=== PATIENT | male | born 1950 | race Caucasian/White ===

== ENCOUNTER 2017-08-22 17:05 | Inpatient (IN) | payer MEDICARE ==
--- NOTE | 2017-08-22 17:35 | ED Physician Chart ---
ED Chief Complaint/HPI - Patient Information Date Seen:: 08/22/17 Time Seen:: 17:12 Chief Complaint:: psychosis History of Present Illness:: THIS IS A 67 YO MALE WHO WAS SENT FROM THE [facility] FOR EVALUATION AND TREATMENT OF HIS MENTAL STATUS. HE HAS A HISTORY OF SCHIZOPHRENIA. Allergies:: Allergies Allergy/AdvReac Type Severity Reaction Status Date / Time No Known Allergies Allergy Verified 08/22/17 17:09 Vitals:: Vital Signs - 8 hr 08/22/17 17:09 Temp 97.6 F HR 72 RR 16 BP 122/72 O2 Sat % 95 Historian:: Medical Records Review:: Nurse's Note Reviewed, Old Chart Reviewed, Transfer documents Reviewed ED Review of Systems - Review of Systems General/Constitutional: No fever, No chills, No weight loss, No weakness, No diaphoresis, No edema, No loss of appetite, Other ( THIS PATIENT IS UNABLE TO GIVE A REVIEW OF SYSTEMS.) Skin: No skin lesions, No rash, No bruising Head: No headache, No light-headedness Eyes: No loss of vision, No pain, No diplopia ENT: No earache, No nasal drainage, No sore throat, No tinnitus Neck: No neck pain, No swelling, No thyromegaly, No stiffness, No mass noted Cardio Vascular: No chest pain, No palpitations, No PND, No orthopnea, No edema Pulmonary: No SOB, No cough, No sputum, No wheezing GI: No nausea, No vomiting, No diarrhea, No pain, No melena, No hematochezia, No constipation, No hematemesis G/U: No dysuria, No frequency, No hematuria Musculoskeletal: No bone or joint pain, No back pain, No muscle pain Endocrine: No polyuria, No polydipsia Psychiatric: No prior psych history, No depression, No anxiety, No suicidal ideation Hematopoietic: No bruising, No lymphadenopathy Allergic/Immuno: No urticaria, No angioedema Neurological: No syncope, No focal symptoms, No weakness, No paresthesia, No headache, No seizure, No dizziness, No confusion, No vertigo ED Past Medical History - Past Medical History Obtainable: Yes Past Medical History: CVA/TIA, Dementia, Other (SEVERE CERVICAL SPINAL STENOSIS. ) Family History: None Social History: Non Smoker, No Alcohol, No Drug Use, Care Facility Surgical History: other (NECK SURGERY) Family Medical History - Family Member Mother History Unknown: Yes ED Physical Exam - Physical Examination General/Constitutional: Awake, Well-developed, well-nourished, Alert, No distress, GCS 15, Non-toxic appearing, Ambulatory Other Gen/Cons comments:: LETHARGIC AND SLOW RESPONSES Head: Atraumatic Eyes: Lids, conjuctiva normal, PERRL, EOMI Skin: Nl inspection, No rash, No skin lesions, No ecchymosis, Well hydrated, No lymphadenopathy ENMT: External ears, nose nl, Nasal exam nl, Lips, teeth, gums nl Neck: Nontender, Full ROM w/o pain, No JVD, No nuchal rigidity, No bruit, No mass, No stridor Respiratory: Nl effort/Exclusion, Clear to Auscultation, No Wheeze/Rhonchi/Rales Cardio Vascular: RRR, No murmur, gallop, rubs, NL S1 S2 GI: No tenderness/rebounding/guarding, No organomegaly, No hernia, Normal BS's, Nondistended, No mass/bruits, No McBurney tenderness : No CVA tenderness Extremities: No tenderness or effusion, Full ROM, normal strength in all extremities, No edema, Normal digits & nails Neuro/Psych: Alert/oriented, DTR's symmetric, Normal sensory exam, Normal motor strength, No focal deficits (THINKING PROBLEM) Misc: normal gait, Normal back, No paraspinal tenderness ED Labs/Radiology/EKG Results - Lab Results Results: Abnormal Lab Results 08/22/17 08/22/17 08/22/17 18:10 18:10 18:10 WBC 8.1 RBC 4.51 Hgb 11.4 L Hct 34.7 L MCV 76.9 L MCH 25.2 L MCHC Differential 32.8 RDW 14.3 Plt Count 417 H MPV 7.8 Neutrophils % 61.9 Lymphocytes % 28.1 Monocytes % 6.1 Eosinophils % 3.4 Basophils % 0.5 Sodium 138 Potassium 3.6 Chloride 106 Carbon Dioxide 26.9 Anion Gap 8.7 BUN 14 Creatinine 0.7 Est GFR ( Amer) > 60.0 Est GFR (Non-Af Amer) > 60.0 BUN/Creatinine Ratio 20.0 Glucose 103 Calcium 9.3 Total Bilirubin 0.3 AST 14 ALT 12 Alkaline Phosphatase 65 Troponin I Total Protein 6.7 Albumin 3.6 L Globulin 3.1 Albumin/Globulin Ratio 1.2 Triglycerides 84 Cholesterol 123 LDL Cholesterol Direct 70 L HDL Cholesterol 40 08/22/17 18:10 WBC RBC Hgb Hct MCV MCH MCHC Differential RDW Plt Count MPV Neutrophils % Lymphocytes % Monocytes % Eosinophils % Basophils % Sodium Potassium Chloride Carbon Dioxide Anion Gap BUN Creatinine Est GFR ( Amer) Est GFR (Non-Af Amer) BUN/Creatinine Ratio Glucose Calcium Total Bilirubin AST ALT Alkaline Phosphatase Troponin I 0.01 Total Protein Albumin Globulin Albumin/Globulin Ratio Triglycerides Cholesterol LDL Cholesterol Direct HDL Cholesterol - Radiology Results Results: chest x-ray = nad - EKG Interpretations EKG Time:: 17:36 Rate & Rhythm: RATE= 73, SINUS [place]: RIGHT AXIS ED Assessment - Assessment General Assessment: PSYCHOSIS ED Septic Shock - . Is Septic Shock (SBP<90, OR Lactate>4 mmol\L) present?: No - <6hrs of presentation: Vital Signs: Vital Signs - 8 hr 08/22/17 17:09 Temp 97.6 F HR 72 RR 16 BP 122/72 O2 Sat % 95 ED Reassessment (Disposition) - Reassessment Reassessment Condition:: Unchanged - Diagnosis Diagnosis:: PSYCHOSIS - Patient Disposition Discharge/Transfer:: Acute Care w/in this hosp Admitting Medical Physician:: David Painter Admitting Psych Physician:: Judith Brooks Condition at Disposition:: Unchanged ED Discharge Plan - Patient Disposition Admit/Discharge/Transfer: Acute Care w/in this hosp Condition at Disposition: Unchanged Instructions: Psychosis
[2017-08-22 18:19] LABS: % BASOPHILS 0.5 % (0.0-2.0); % EOSINOPHILS 3.4 % (0.0-5.0); % LYMPHOCYTES 28.1 % (20.0-50.0); % MONOCYTES 6.1 % (2.0-10.0); % NEUTROPHILS 61.9 % (40.0-80.0); HEMATOCRIT 34.7 % (41.0-60); HEMOGLOBIN 11.4 gm/dL (12-16); MEAN CELL VOLUME 76.9 fl (80-99); MEAN CORPUSCULAR HEMOGLOBIN 25.2 pg (27.0-31.0); MEAN CORPUSCULAR HGB CONC 32.8 pg (28.0-36.0); MEAN PLATELET VOLUME 7.8 fl; PLATELET COUNT 417 Th/cmm (150-400); RED BLOOD COUNT 4.51 Mil/cmm (3.80-5.80); RED CELL DISTRIBUTION WIDTH 14.3 % (11.5-20.0); WHITE BLOOD COUNT 8.1 Th/cmm (4.8-10.8)
[2017-08-22 18:39] LABS: CHOLESTEROL 123 mg/dL (<200); TRIGLYCERIDES 84 mg/dL (<150)
[2017-08-22 18:41] LABS: ALB/GLOB RATIO 1.2 (1.0-1.8); ALKALINE PHOSPHATASE 65 U/L (34-104); ANION GAP 8.7 (7.0-16.0); BILIRUBIN,TOTAL 0.3 mg/dL (0.3-1.0); BUN - UREA NITROGEN 14 mg/dL (7-25); CALCIUM SERUM 9.3 mg/dL (8.6-10.3); CARBON DIOXIDE 26.9 mEq/L (21.0-31.0); CHLORIDE 106 mEq/L (98-107); CREATININE - SERUM 0.7 mg/dL (0.7-1.3); GLUCOSE 103 mg/dL (70-105); POTASSIUM SERUM 3.6 mEq/L (3.5-5.1); SGOT 14 U/L (13-39); SGPT/ALT 12 U/L (7-52); SODIUM SERUM 138 mEq/L (136-145)
[2017-08-22 19:04] LABS: INR 1.01 (0.5-1.4); PROTHROMBIN TIME (TEST) 10.5 SECONDS (9.5-11.5)
[2017-08-22 20:04] VITALS: BP 124/69
[2017-08-22] MEDS ORDERED: Magnesium Hydroxide (MOM) 30 mL UDC PO PRN (20:06)
[2017-08-23] MEDS: Multivitamin Tab PO SCH (08:56)
[2017-08-23] MEDS: Lactulose 10 Gm/15 mL 30mL UDC PO SCH ×2 (08:56→17:19)
--- NOTE | 2017-08-23 09:07 | Diagnostic Imaging Report ---
CHEST X-RAY: AP view INDICATION: Cough COMPARISON: None FINDINGS: There is no focal consolidation or pleural effusions The heart is normal in size. Postsurgical changes of the cervical and upper thoracic spine are noted. Gas-filled loops of bowel and stomach are seen along left hemiabdomen. Degenerative changes of the spine and shoulders are noted. IMPRESSION: No focal consolidation identified.
[2017-08-23] MEDS: Venlafaxine HCl ER 37.5 mg Tab PO SCH (11:19)
--- NOTE | 2017-08-23 23:42 | Psychosocial Evaluation ---
DATE OF SERVICE: 08/23/2017 IDENTIFYING DATA: The patient is a 67-year-old male, resident of ____ [facility]. Information obtained by directly interviewing the patient as well as reviewing the admission papers. JUSTIFICATION FOR HOSPITALIZATION: The patient is admitted here because of his aggressive behavior and agitation. Staff was spoken to. Chart is reviewed. The patient is interviewed. During the evaluation, the patient has been out of control and has been trying the ej chair. The patient also has to be given a dose of Ativan to calm him down. Review of the chart indicated that the patient has been on the Depakote Effexor and trazodone prior to being in here. The patient is reported to have been getting increasingly agitated and hence patient has to be brought over here for stabilization. Review of the chart indicated that the patient has been diagnosed to have fusion of the cervical spine, spondylosis and gastroesophageal reflux disease. PAST PSYCHIATRIC HISTORY: Details are not known. MEDICAL HISTORY AND PHYSICAL EXAMINATION: Requested to be done by Dr. Painter. SUBSTANCE ABUSE HISTORY: None. PHYSICAL OR SEXUAL ABUSE HISTORY: None. MENTAL STATUS EXAMINATION: The patient is a 67-year-old, looking his stated age, superficially cooperative. Eye contact is poor. Mood is noted to be irritable. Affect is constricted. Insight and judgment at this time are noted to be still impaired. Impulse control seems to be limited. Coping skills are also to be limited. The patient has been having acute mood swings and has been having difficult time to cope with the stress. The patient is very paranoid at this time. The patient has problem with short-term as well as long-term memory. Attention span and concentration at this time are noted to be poor. DIAGNOSTIC IMPRESSION: 1. Psychosis, not otherwise specified. Rule out schizoaffective disorder. 2. Dementia and behavioral change secondary. IMMEDIATE TREATMENT PLAN: The patient is going to be observed on the inpatient unit and will be continued with the current medications and encouraged to participate in the groups and verbalize the concerns. Once stabilized, the patient is going to be discharged to [facility] to be followed up on an outpatient basis. [facility]# [id number]
[2017-08-24] MEDS: Lactulose 10 Gm/15 mL 30mL UDC PO SCH ×3 (08:38→16:57)
[2017-08-24] MEDS: Multivitamin Tab PO SCH ×2 (08:38→09:16)
[2017-08-24] MEDS: Venlafaxine HCl ER 37.5 mg Tab PO SCH ×2 (08:40→09:16)
--- NOTE | 2017-08-24 20:08 | General Progress Note ---
Subjective - Review of Systems Service Date: 08/24/17 Objective - Results Result Diagrams: 08/22/17 18:10 08/22/17 18:10 Recent Labs: Laboratory Last Values WBC 8.1 Th/cmm (4.8-10.8) 08/22/17 18:10 RBC 4.51 Mil/cmm (3.80-5.80) 08/22/17 18:10 Hgb 11.4 gm/dL (12-16) L 08/22/17 18:10 Hct 34.7 % (41.0-60) L 08/22/17 18:10 MCV 76.9 fl (80-99) L 08/22/17 18:10 MCH 25.2 pg (27.0-31.0) L 08/22/17 18:10 MCHC Differential 32.8 pg (28.0-36.0) 08/22/17 18:10 RDW 14.3 % (11.5-20.0) 08/22/17 18:10 Plt Count 417 Th/cmm (150-400) H 08/22/17 18:10 MPV 7.8 fl 08/22/17 18:10 Neutrophils % 61.9 % (40.0-80.0) 08/22/17 18:10 Lymphocytes % 28.1 % (20.0-50.0) 08/22/17 18:10 Monocytes % 6.1 % (2.0-10.0) 08/22/17 18:10 Eosinophils % 3.4 % (0.0-5.0) 08/22/17 18:10 Basophils % 0.5 % (0.0-2.0) 08/22/17 18:10 PT 10.5 SECONDS (9.5-11.5) 08/22/17 18:10 INR 1.01 (0.5-1.4) 08/22/17 18:10 PTT (Actin FS) 25.4 SECONDS (26.0-38.0) L 08/22/17 18:10 Sodium 138 mEq/L (136-145) 08/22/17 18:10 Potassium 3.6 mEq/L (3.5-5.1) 08/22/17 18:10 Chloride 106 mEq/L (98-107) 08/22/17 18:10 Carbon Dioxide 26.9 mEq/L (21.0-31.0) 08/22/17 18:10 Anion Gap 8.7 (7.0-16.0) 08/22/17 18:10 BUN 14 mg/dL (7-25) 08/22/17 18:10 Creatinine 0.7 mg/dL (0.7-1.3) 08/22/17 18:10 Est GFR ( Amer) > 60.0 ml/min (>90) 08/22/17 18:10 Est GFR (Non-Af Amer) > 60.0 ml/min 08/22/17 18:10 BUN/Creatinine Ratio 20.0 08/22/17 18:10 Glucose 103 mg/dL (70-105) 08/22/17 18:10 Calcium 9.3 mg/dL (8.6-10.3) 08/22/17 18:10 Total Bilirubin 0.3 mg/dL (0.3-1.0) 08/22/17 18:10 AST 14 U/L (13-39) 08/22/17 18:10 ALT 12 U/L (7-52) 08/22/17 18:10 Alkaline Phosphatase 65 U/L (34-104) 08/22/17 18:10 Troponin I 0.01 ng/mL (0.01-0.05) 08/22/17 18:10 Total Protein 6.7 gm/dL (6.0-8.3) 08/22/17 18:10 Albumin 3.6 gm/dL (4.2-5.5) L 08/22/17 18:10 Globulin 3.1 gm/dL 08/22/17 18:10 Albumin/Globulin Ratio 1.2 (1.0-1.8) 08/22/17 18:10 Triglycerides 84 mg/dL (<150) 08/22/17 18:10 Cholesterol 123 mg/dL (<200) 08/22/17 18:10 LDL Cholesterol Direct 70 mg/dL (75-193) L 08/22/17 18:10 HDL Cholesterol 40 mg/dL (23-92) 08/22/17 18:10 TSH 0.77 uIU/ml (0.34-5.60) 08/22/17 18:10 RPR NONREACTIVE (NONREACTIVE) 08/22/17 18:10 - Physical Exam Vitals and I&O: Vital Signs Temp 97.4 F 08/24/17 14:00 Pulse 74 08/24/17 14:00 Resp 18 08/24/17 14:00 BP 95/55 08/24/17 14:00 Pulse Ox 98 08/24/17 14:00 Intake & Output 08/24/17 08/24/17 08/25/17 06:59 18:59 06:59 Intake Total 1800 Balance 1800 Intake: Oral 1800 Other: # Voids 3 4 # Bowel Movements 0 0 Active Medications: Current Medications Acetaminophen (Tylenol) 650 mg PO Q4HR PRN PRN Reason: Mild Pain / Temp above 100 Stop: 10/21/17 20:05 Last Admin: 08/23/17 17:28 Dose: 650 mg Ascorbic Acid (Vitamin C) 500 mg PO DAILY [facility] Stop: 10/22/17 08:59 Last Admin: 08/24/17 09:16 Dose: Not Given Baclofen (Lioresal) 10 mg PO TID [facility] Stop: 10/23/17 13:59 Last Admin: 08/24/17 13:13 Dose: Not Given Divalproex Sodium (Depakote Sprinkle) 125 mg PO Q12HR [facility] PRN Reason: Protocol Stop: 10/22/17 08:59 Last Admin: 08/24/17 09:16 Dose: Not Given Gabapentin (Neurontin) 400 mg PO QID [facility] Stop: 10/22/17 08:59 Last Admin: 08/24/17 16:57 Dose: Not Given Lactulose (Cephulac) 20 gm PO BID [facility] Stop: 10/22/17 08:59 Last Admin: 08/24/17 16:57 Dose: Not Given Lorazepam (Ativan) 0.5 mg PO Q4HR PRN; Protocol PRN Reason: Agitation Stop: 10/22/17 07:50 Last Admin: 08/24/17 17:10 Dose: 0.5 mg Magnesium Hydroxide (Milk Of Magnesia) 30 ml PO HS PRN PRN Reason: Constipation Multivitamins/Vitamin C (Theragran) 1 tab PO DAILY [facility] Stop: 10/22/17 08:59 Last Admin: 08/24/17 09:16 Dose: Not Given Mupirocin (Bactroban Oint) 1 appl NS BID [facility] Stop: 08/29/17 09:01 Last Admin: 08/24/17 16:58 Dose: Not Given Quetiapine Fumarate (Seroquel) 12.5 mg PO HS [facility] PRN Reason: Protocol Stop: 10/23/17 20:59 Senna (Senna) 8.6 mg PO BID [facility] Stop: 10/22/17 08:59 Last Admin: 08/24/17 16:58 Dose: Not Given Trazodone HCl (Desyrel) 50 mg PO HS [facility] PRN Reason: Protocol Stop: 10/22/17 20:59 Last Admin: 08/23/17 20:11 Dose: 50 mg Venlafaxine HCl (Effexor Xr) 37.5 mg PO DAILY [facility] PRN Reason: Protocol Stop: 10/22/17 08:59 Last Admin: 08/24/17 09:16 Dose: Not Given Zinc Sulfate (Zinc Sulfate) 220 mg PO DAILY [facility] Stop: 10/22/17 08:59 Last Admin: 08/24/17 09:16 Dose: Not Given Zolpidem Tartrate (Ambien) 5 mg PO HS PRN PRN Reason: Insomnia Stop: 10/21/17 20:05
--- NOTE | 2017-08-24 20:46 | History & Physical ---
ADMIT DATE: 08/22/2017 HISTORY OF PRESENT ILLNESS: The patient is a 67-year-old male patient, who [facility] because of change in mental condition, agitation, and schizophrenia. He was admitted. I was asked to see the patient on the medical side. The patient known to have history of CVA, history of TIA, history of dementia, and the patient otherwise systems review was negative. PAST MEDICAL HISTORY: As enumerated above. SURGICAL HISTORY: Unremarkable. PHYSICAL EXAMINATION: GENERAL: Elderly male patient, slightly confused. HEAD: Normal. ENT: Normal. NECK: Supple, nontender. LUNGS: Clear. CARDIOVASCULAR SYSTEM: S1, S2 heard. ABDOMEN: Soft. Bowel sounds are heard. CENTRAL NERVOUS SYSTEM: Grossly normal. LABORATORY DATA: White count was 8.1, hemoglobin 11.4, hematocrit was normal. Electrolytes were normal. BUN and creatinine was normal. EKG was normal sinus rhythm, he has right axis deviation, and otherwise normal. DIAGNOSES: Acute psychosis, history of cerebrovascular accident, history of transient ischemic attack, and history of dementia was made. PLAN: The patient is being admitted. I will follow medically along with Dr. Brooks. JOB# [id number]
--- NOTE | 2017-08-25 00:25 | Progress Notes ---
DATE: 08/24/2017 SUBJECTIVE: Staff was spoken to. The patient is interviewed. Mood is noted to be irritable. Affect is constricted. Insight and judgment at this time are noted to be still impaired. Impulse control is noted to be poor. Continues to be very irritable and angry. The patient has been having difficult time to cope with the stress. The patient is very angry and upset and insisting on having his way. The patient also has been having problem with sleep at night time. ASSESSMENT: The patient is still paranoid and demented. PLAN: To continue the patient with supportive therapy. I encouraged the patient to verbalize the concerns rather than to act out. In view of the paranoia and agitation, the patient is going to be placed on 12.5 mg of Seroquel at night time and followed up with supportive therapy. JOB# [id number]
[2017-08-25] MEDS: Lactulose 10 Gm/15 mL 30mL UDC PO SCH ×2 (09:50→16:56)
[2017-08-25] MEDS: Multivitamin Tab PO SCH (09:50)
[2017-08-25] MEDS: Venlafaxine HCl ER 37.5 mg Tab PO SCH (09:50)
--- NOTE | 2017-08-25 21:54 | Progress Notes ---
DATE: 08/25/2017 Staff was spoken to. The patient is interviewed. Mood is irritable. Affect is still impaired. Impulse control seems to be poor. Coping skills are also noted to be poor. The patient has been having difficult time to cope with the stress. The patient is still very paranoid. The patient is currently only on 12.5 mg of the Seroquel, which is going to be gradually increased to 25 mg and the patient is going to be followed up with supportive therapy. The patient is not ready to be discharged to a lower level of care in view of his acute agitation and psychosis. JOB# [id number]
--- NOTE | 2017-08-26 09:31 | General Progress Note ---
Subjective - Review of Systems Events since last encounter: patient with not much change irritable , depressed, withdrawn no pain Objective - Results Result Diagrams: 08/22/17 18:10 08/22/17 18:10 Recent Labs: Laboratory Last Values WBC 8.1 Th/cmm (4.8-10.8) 08/22/17 18:10 RBC 4.51 Mil/cmm (3.80-5.80) 08/22/17 18:10 Hgb 11.4 gm/dL (12-16) L 08/22/17 18:10 Hct 34.7 % (41.0-60) L 08/22/17 18:10 MCV 76.9 fl (80-99) L 08/22/17 18:10 MCH 25.2 pg (27.0-31.0) L 08/22/17 18:10 MCHC Differential 32.8 pg (28.0-36.0) 08/22/17 18:10 RDW 14.3 % (11.5-20.0) 08/22/17 18:10 Plt Count 417 Th/cmm (150-400) H 08/22/17 18:10 MPV 7.8 fl 08/22/17 18:10 Neutrophils % 61.9 % (40.0-80.0) 08/22/17 18:10 Lymphocytes % 28.1 % (20.0-50.0) 08/22/17 18:10 Monocytes % 6.1 % (2.0-10.0) 08/22/17 18:10 Eosinophils % 3.4 % (0.0-5.0) 08/22/17 18:10 Basophils % 0.5 % (0.0-2.0) 08/22/17 18:10 PT 10.5 SECONDS (9.5-11.5) 08/22/17 18:10 INR 1.01 (0.5-1.4) 08/22/17 18:10 PTT (Actin FS) 25.4 SECONDS (26.0-38.0) L 08/22/17 18:10 Sodium 138 mEq/L (136-145) 08/22/17 18:10 Potassium 3.6 mEq/L (3.5-5.1) 08/22/17 18:10 Chloride 106 mEq/L (98-107) 08/22/17 18:10 Carbon Dioxide 26.9 mEq/L (21.0-31.0) 08/22/17 18:10 Anion Gap 8.7 (7.0-16.0) 08/22/17 18:10 BUN 14 mg/dL (7-25) 08/22/17 18:10 Creatinine 0.7 mg/dL (0.7-1.3) 08/22/17 18:10 Est GFR ( Amer) > 60.0 ml/min (>90) 08/22/17 18:10 Est GFR (Non-Af Amer) > 60.0 ml/min 08/22/17 18:10 BUN/Creatinine Ratio 20.0 08/22/17 18:10 Glucose 103 mg/dL (70-105) 08/22/17 18:10 Calcium 9.3 mg/dL (8.6-10.3) 08/22/17 18:10 Total Bilirubin 0.3 mg/dL (0.3-1.0) 08/22/17 18:10 AST 14 U/L (13-39) 08/22/17 18:10 ALT 12 U/L (7-52) 08/22/17 18:10 Alkaline Phosphatase 65 U/L (34-104) 08/22/17 18:10 Troponin I 0.01 ng/mL (0.01-0.05) 08/22/17 18:10 Total Protein 6.7 gm/dL (6.0-8.3) 08/22/17 18:10 Albumin 3.6 gm/dL (4.2-5.5) L 08/22/17 18:10 Globulin 3.1 gm/dL 08/22/17 18:10 Albumin/Globulin Ratio 1.2 (1.0-1.8) 08/22/17 18:10 Triglycerides 84 mg/dL (<150) 08/22/17 18:10 Cholesterol 123 mg/dL (<200) 08/22/17 18:10 LDL Cholesterol Direct 70 mg/dL (75-193) L 08/22/17 18:10 HDL Cholesterol 40 mg/dL (23-92) 08/22/17 18:10 TSH 0.77 uIU/ml (0.34-5.60) 08/22/17 18:10 RPR NONREACTIVE (NONREACTIVE) 08/22/17 18:10 - Physical Exam Vitals and I&O: Vital Signs Temp 97.8 F 08/26/17 06:16 Pulse 79 08/26/17 06:16 Resp 18 08/26/17 06:16 BP 118/66 08/26/17 06:16 Pulse Ox 96 08/26/17 06:16 Intake & Output 08/25/17 08/26/17 08/26/17 18:59 06:59 18:59 Intake Total 720 360 Balance 720 360 Intake: Oral 720 360 Other: # Voids 4 2 # Bowel Movements 0 1 Active Medications: Current Medications Acetaminophen (Tylenol) 650 mg PO Q4HR PRN PRN Reason: Mild Pain / Temp above 100 Stop: 10/21/17 20:05 Last Admin: 08/26/17 01:40 Dose: 650 mg Ascorbic Acid (Vitamin C) 500 mg PO DAILY [facility] Stop: 10/22/17 08:59 Last Admin: 08/25/17 09:50 Dose: Not Given Baclofen (Lioresal) 10 mg PO TID [facility] Stop: 10/23/17 13:59 Last Admin: 08/25/17 21:16 Dose: Not Given Divalproex Sodium (Depakote Sprinkle) 125 mg PO Q12HR [facility] PRN Reason: Protocol Stop: 10/22/17 08:59 Last Admin: 08/25/17 21:17 Dose: Not Given Gabapentin (Neurontin) 400 mg PO QID [facility] Stop: 10/22/17 08:59 Last Admin: 08/25/17 21:17 Dose: Not Given Lactulose (Cephulac) 20 gm PO BID [facility] Stop: 10/22/17 08:59 Last Admin: 08/25/17 16:56 Dose: Not Given Lorazepam (Ativan) 0.5 mg PO Q4HR PRN; Protocol PRN Reason: Agitation Stop: 10/22/17 07:50 Last Admin: 08/26/17 01:40 Dose: 0.5 mg Magnesium Hydroxide (Milk Of Magnesia) 30 ml PO HS PRN PRN Reason: Constipation Multivitamins/Vitamin C (Theragran) 1 tab PO DAILY [facility] Stop: 10/22/17 08:59 Last Admin: 08/25/17 09:50 Dose: Not Given Mupirocin (Bactroban Oint) 1 appl NS BID [facility] Stop: 08/29/17 09:01 Last Admin: 08/25/17 16:56 Dose: Not Given Quetiapine Fumarate (Seroquel) 25 mg PO HS [facility] PRN Reason: Protocol Stop: 10/23/17 20:59 Last Admin: 08/25/17 21:17 Dose: Not Given Senna (Senna) 8.6 mg PO BID [facility] Stop: 10/22/17 08:59 Last Admin: 08/25/17 16:56 Dose: Not Given Trazodone HCl (Desyrel) 50 mg PO HS [facility] PRN Reason: Protocol Stop: 10/22/17 20:59 Last Admin: 08/25/17 21:16 Dose: Not Given Venlafaxine HCl (Effexor Xr) 37.5 mg PO DAILY [facility] PRN Reason: Protocol Stop: 10/22/17 08:59 Last Admin: 08/25/17 09:50 Dose: Not Given Zinc Sulfate (Zinc Sulfate) 220 mg PO DAILY [facility] Stop: 10/22/17 08:59 Last Admin: 08/25/17 09:50 Dose: Not Given Zolpidem Tartrate (Ambien) 5 mg PO HS PRN PRN Reason: Insomnia Stop: 10/21/17 20:05
[2017-08-26] MEDS: Venlafaxine HCl ER 37.5 mg Tab PO SCH (10:03)
[2017-08-26] MEDS: Multivitamin Tab PO SCH (10:03)
[2017-08-26] MEDS: Lactulose 10 Gm/15 mL 30mL UDC PO SCH ×2 (10:03→16:47)
--- NOTE | 2017-08-27 04:16 | Progress Notes ---
DATE: 08/26/2017 SUBJECTIVE: Staff was spoken to. The patient is interviewed. Mood is noted to be irritable. Affect is constricted. Insight and judgment are noted to be very much impaired. Impulse control seems to be poor. Coping skills are also noted to be poor. The patient is self-abusive and has been hitting himself on the face. The patient needs to be redirected. Coping skills at this time are noted to be very poor. The patient is not able to contract for safety. ASSESSMENT: The patient is still psychotic and impulsive, self-abusive. PLAN: To increase the dose on the Depakote and then follow the patient with supportive therapy. Please note the patient is not ready to be discharged to a lower level of care yet. JOB# [id number]
[2017-08-27] MEDS: Multivitamin Tab PO SCH (09:03)
[2017-08-27] MEDS: Lactulose 10 Gm/15 mL 30mL UDC PO SCH ×2 (09:03→16:06)
--- NOTE | 2017-08-27 09:30 | General Progress Note ---
Subjective - Review of Systems Events since last encounter: remains psychotic ,unpredictable Objective - Results Result Diagrams: 08/22/17 18:10 08/22/17 18:10 Recent Labs: Laboratory Last Values WBC 8.1 Th/cmm (4.8-10.8) 08/22/17 18:10 RBC 4.51 Mil/cmm (3.80-5.80) 08/22/17 18:10 Hgb 11.4 gm/dL (12-16) L 08/22/17 18:10 Hct 34.7 % (41.0-60) L 08/22/17 18:10 MCV 76.9 fl (80-99) L 08/22/17 18:10 MCH 25.2 pg (27.0-31.0) L 08/22/17 18:10 MCHC Differential 32.8 pg (28.0-36.0) 08/22/17 18:10 RDW 14.3 % (11.5-20.0) 08/22/17 18:10 Plt Count 417 Th/cmm (150-400) H 08/22/17 18:10 MPV 7.8 fl 08/22/17 18:10 Neutrophils % 61.9 % (40.0-80.0) 08/22/17 18:10 Lymphocytes % 28.1 % (20.0-50.0) 08/22/17 18:10 Monocytes % 6.1 % (2.0-10.0) 08/22/17 18:10 Eosinophils % 3.4 % (0.0-5.0) 08/22/17 18:10 Basophils % 0.5 % (0.0-2.0) 08/22/17 18:10 PT 10.5 SECONDS (9.5-11.5) 08/22/17 18:10 INR 1.01 (0.5-1.4) 08/22/17 18:10 PTT (Actin FS) 25.4 SECONDS (26.0-38.0) L 08/22/17 18:10 Sodium 138 mEq/L (136-145) 08/22/17 18:10 Potassium 3.6 mEq/L (3.5-5.1) 08/22/17 18:10 Chloride 106 mEq/L (98-107) 08/22/17 18:10 Carbon Dioxide 26.9 mEq/L (21.0-31.0) 08/22/17 18:10 Anion Gap 8.7 (7.0-16.0) 08/22/17 18:10 BUN 14 mg/dL (7-25) 08/22/17 18:10 Creatinine 0.7 mg/dL (0.7-1.3) 08/22/17 18:10 Est GFR ( Amer) > 60.0 ml/min (>90) 08/22/17 18:10 Est GFR (Non-Af Amer) > 60.0 ml/min 08/22/17 18:10 BUN/Creatinine Ratio 20.0 08/22/17 18:10 Glucose 103 mg/dL (70-105) 08/22/17 18:10 Calcium 9.3 mg/dL (8.6-10.3) 08/22/17 18:10 Total Bilirubin 0.3 mg/dL (0.3-1.0) 08/22/17 18:10 AST 14 U/L (13-39) 08/22/17 18:10 ALT 12 U/L (7-52) 08/22/17 18:10 Alkaline Phosphatase 65 U/L (34-104) 08/22/17 18:10 Troponin I 0.01 ng/mL (0.01-0.05) 08/22/17 18:10 Total Protein 6.7 gm/dL (6.0-8.3) 08/22/17 18:10 Albumin 3.6 gm/dL (4.2-5.5) L 08/22/17 18:10 Globulin 3.1 gm/dL 08/22/17 18:10 Albumin/Globulin Ratio 1.2 (1.0-1.8) 08/22/17 18:10 Triglycerides 84 mg/dL (<150) 08/22/17 18:10 Cholesterol 123 mg/dL (<200) 08/22/17 18:10 LDL Cholesterol Direct 70 mg/dL (75-193) L 08/22/17 18:10 HDL Cholesterol 40 mg/dL (23-92) 08/22/17 18:10 TSH 0.77 uIU/ml (0.34-5.60) 08/22/17 18:10 RPR NONREACTIVE (NONREACTIVE) 08/22/17 18:10 - Physical Exam Vitals and I&O: Vital Signs Temp 97.8 F 08/27/17 06:44 Pulse 86 08/27/17 06:44 Resp 20 08/27/17 06:44 BP 122/83 08/27/17 06:44 Pulse Ox 100 08/27/17 06:44 Intake & Output 08/26/17 08/27/17 08/27/17 18:59 06:59 18:59 Intake Total 800 120 Balance 800 120 Intake: Oral 800 120 Other: # Voids 4 3 # Bowel Movements 1 0 Stool Characteristics Soft Active Medications: Current Medications Acetaminophen (Tylenol) 650 mg PO Q4HR PRN PRN Reason: Mild Pain / Temp above 100 Stop: 10/21/17 20:05 Last Admin: 08/26/17 01:40 Dose: 650 mg Ascorbic Acid (Vitamin C) 500 mg PO DAILY [facility] Stop: 10/22/17 08:59 Last Admin: 08/27/17 09:03 Dose: Not Given Baclofen (Lioresal) 10 mg PO TID [facility] Stop: 10/23/17 13:59 Last Admin: 08/27/17 09:03 Dose: Not Given Divalproex Sodium (Depakote Sprinkle) 250 mg PO Q12HR [facility] PRN Reason: Protocol Stop: 10/22/17 08:59 Last Admin: 08/27/17 09:03 Dose: 250 mg Gabapentin (Neurontin) 400 mg PO QID [facility] Stop: 10/22/17 08:59 Last Admin: 08/27/17 09:03 Dose: Not Given Lactulose (Cephulac) 20 gm PO BID [facility] Stop: 10/22/17 08:59 Last Admin: 08/27/17 09:03 Dose: Not Given Lorazepam (Ativan) 0.5 mg PO Q4HR PRN; Protocol PRN Reason: Agitation Stop: 10/22/17 07:50 Last Admin: 08/27/17 09:03 Dose: 0.5 mg Magnesium Hydroxide (Milk Of Magnesia) 30 ml PO HS PRN PRN Reason: Constipation Multivitamins/Vitamin C (Theragran) 1 tab PO DAILY [facility] Stop: 10/22/17 08:59 Last Admin: 08/27/17 09:03 Dose: Not Given Mupirocin (Bactroban Oint) 1 appl NS BID [facility] Stop: 08/29/17 09:01 Last Admin: 08/27/17 09:03 Dose: Not Given Quetiapine Fumarate (Seroquel) 25 mg PO BID [facility] PRN Reason: Protocol Stop: 10/26/17 16:59 Senna (Senna) 8.6 mg PO BID [facility] Stop: 10/22/17 08:59 Last Admin: 08/27/17 09:03 Dose: Not Given Trazodone HCl (Desyrel) 50 mg PO HS [facility] PRN Reason: Protocol Stop: 10/22/17 20:59 Last Admin: 08/26/17 21:16 Dose: 50 mg Zinc Sulfate (Zinc Sulfate) 220 mg PO DAILY [facility] Stop: 10/22/17 08:59 Last Admin: 08/27/17 09:03 Dose: Not Given Zolpidem Tartrate (Ambien) 5 mg PO HS PRN PRN Reason: Insomnia Stop: 10/21/17 20:05
--- NOTE | 2017-08-28 01:49 | Progress Notes ---
DATE: 08/27/2017 SUBJECTIVE: Staff was spoken to. The patient is interviewed. Mood is irritable. Affect is constricted. Insight and judgment are noted to be still impaired. Impulse control is noted to be poor. Coping skills are also noted to be poor. The patient is not willing to complaint with the treatment. The patient has pain, trying to hit himself. The patient has no insight into his illness. The patient is still confused. ASSESSMENT: The patient is still impulsive and paranoid. PLAN: To increase the dose on the Seroquel to 25 mg twice a day and continue the Depakote and follow the patient with supportive therapy. JOB# [id number]
--- NOTE | 2017-08-28 09:48 | General Progress Note ---
Subjective - Review of Systems Events since last encounter: no new change Objective - Results Result Diagrams: 08/22/17 18:10 08/22/17 18:10 Recent Labs: Laboratory Last Values WBC 8.1 Th/cmm (4.8-10.8) 08/22/17 18:10 RBC 4.51 Mil/cmm (3.80-5.80) 08/22/17 18:10 Hgb 11.4 gm/dL (12-16) L 08/22/17 18:10 Hct 34.7 % (41.0-60) L 08/22/17 18:10 MCV 76.9 fl (80-99) L 08/22/17 18:10 MCH 25.2 pg (27.0-31.0) L 08/22/17 18:10 MCHC Differential 32.8 pg (28.0-36.0) 08/22/17 18:10 RDW 14.3 % (11.5-20.0) 08/22/17 18:10 Plt Count 417 Th/cmm (150-400) H 08/22/17 18:10 MPV 7.8 fl 08/22/17 18:10 Neutrophils % 61.9 % (40.0-80.0) 08/22/17 18:10 Lymphocytes % 28.1 % (20.0-50.0) 08/22/17 18:10 Monocytes % 6.1 % (2.0-10.0) 08/22/17 18:10 Eosinophils % 3.4 % (0.0-5.0) 08/22/17 18:10 Basophils % 0.5 % (0.0-2.0) 08/22/17 18:10 PT 10.5 SECONDS (9.5-11.5) 08/22/17 18:10 INR 1.01 (0.5-1.4) 08/22/17 18:10 PTT (Actin FS) 25.4 SECONDS (26.0-38.0) L 08/22/17 18:10 Sodium 138 mEq/L (136-145) 08/22/17 18:10 Potassium 3.6 mEq/L (3.5-5.1) 08/22/17 18:10 Chloride 106 mEq/L (98-107) 08/22/17 18:10 Carbon Dioxide 26.9 mEq/L (21.0-31.0) 08/22/17 18:10 Anion Gap 8.7 (7.0-16.0) 08/22/17 18:10 BUN 14 mg/dL (7-25) 08/22/17 18:10 Creatinine 0.7 mg/dL (0.7-1.3) 08/22/17 18:10 Est GFR ( Amer) > 60.0 ml/min (>90) 08/22/17 18:10 Est GFR (Non-Af Amer) > 60.0 ml/min 08/22/17 18:10 BUN/Creatinine Ratio 20.0 08/22/17 18:10 Glucose 103 mg/dL (70-105) 08/22/17 18:10 Calcium 9.3 mg/dL (8.6-10.3) 08/22/17 18:10 Total Bilirubin 0.3 mg/dL (0.3-1.0) 08/22/17 18:10 AST 14 U/L (13-39) 08/22/17 18:10 ALT 12 U/L (7-52) 08/22/17 18:10 Alkaline Phosphatase 65 U/L (34-104) 08/22/17 18:10 Troponin I 0.01 ng/mL (0.01-0.05) 08/22/17 18:10 Total Protein 6.7 gm/dL (6.0-8.3) 08/22/17 18:10 Albumin 3.6 gm/dL (4.2-5.5) L 08/22/17 18:10 Globulin 3.1 gm/dL 08/22/17 18:10 Albumin/Globulin Ratio 1.2 (1.0-1.8) 08/22/17 18:10 Triglycerides 84 mg/dL (<150) 08/22/17 18:10 Cholesterol 123 mg/dL (<200) 08/22/17 18:10 LDL Cholesterol Direct 70 mg/dL (75-193) L 08/22/17 18:10 HDL Cholesterol 40 mg/dL (23-92) 08/22/17 18:10 TSH 0.77 uIU/ml (0.34-5.60) 08/22/17 18:10 RPR NONREACTIVE (NONREACTIVE) 08/22/17 18:10 - Physical Exam Vitals and I&O: Vital Signs Temp 97.7 F 08/28/17 06:32 Pulse 80 08/28/17 06:32 Resp 19 08/28/17 06:32 BP 110/68 08/28/17 06:32 Pulse Ox 98 08/28/17 06:32 Intake & Output 08/27/17 08/28/17 08/28/17 18:59 06:59 18:59 Intake Total 900 120 Balance 900 120 Intake: Oral 900 120 Other: # Voids 4 3 # Bowel Movements 1 Stool Characteristics Soft Soft Active Medications: Current Medications Acetaminophen (Tylenol) 650 mg PO Q4HR PRN PRN Reason: Mild Pain / Temp above 100 Stop: 10/21/17 20:05 Last Admin: 08/26/17 01:40 Dose: 650 mg Ascorbic Acid (Vitamin C) 500 mg PO DAILY [facility] Stop: 10/22/17 08:59 Last Admin: 08/27/17 09:03 Dose: Not Given Baclofen (Lioresal) 10 mg PO TID [facility] Stop: 10/23/17 13:59 Last Admin: 08/27/17 20:45 Dose: 10 mg Divalproex Sodium (Depakote Sprinkle) 250 mg PO Q12HR [facility] PRN Reason: Protocol Stop: 10/22/17 08:59 Last Admin: 08/27/17 20:44 Dose: 250 mg Gabapentin (Neurontin) 400 mg PO QID [facility] Stop: 10/22/17 08:59 Last Admin: 08/27/17 20:44 Dose: 400 mg Lactulose (Cephulac) 20 gm PO BID [facility] Stop: 10/22/17 08:59 Last Admin: 08/27/17 16:06 Dose: Not Given Lorazepam (Ativan) 0.5 mg PO Q4HR PRN; Protocol PRN Reason: Agitation Stop: 10/22/17 07:50 Last Admin: 08/27/17 17:34 Dose: 0.5 mg Magnesium Hydroxide (Milk Of Magnesia) 30 ml PO HS PRN PRN Reason: Constipation Multivitamins/Vitamin C (Theragran) 1 tab PO DAILY [facility] Stop: 10/22/17 08:59 Last Admin: 08/27/17 09:03 Dose: Not Given Mupirocin (Bactroban Oint) 1 appl NS BID [facility] Stop: 08/29/17 09:01 Last Admin: 08/27/17 16:06 Dose: Not Given Quetiapine Fumarate (Seroquel) 25 mg PO BID [facility] PRN Reason: Protocol Stop: 10/26/17 16:59 Last Admin: 08/27/17 17:34 Dose: 25 mg Senna (Senna) 8.6 mg PO BID [facility] Stop: 10/22/17 08:59 Last Admin: 08/27/17 16:06 Dose: Not Given Trazodone HCl (Desyrel) 50 mg PO HS [facility] PRN Reason: Protocol Stop: 10/22/17 20:59 Last Admin: 08/27/17 20:45 Dose: 50 mg Zinc Sulfate (Zinc Sulfate) 220 mg PO DAILY [facility] Stop: 10/22/17 08:59 Last Admin: 08/27/17 09:03 Dose: Not Given Zolpidem Tartrate (Ambien) 5 mg PO HS PRN PRN Reason: Insomnia Stop: 10/21/17 20:05 General: No acute distress HEENT: Atraumatic Cardiovascular: Regular rate, Normal S1, Normal S2 Assessment/Plan - Problem List Patient Problems: All Active Problems Acute psychosis (Acute) F23 H/O: CVA (cerebrovascular accident) (Acute) Z86.73 h/o dementia (Acute) h/o transient ischemic attack (Acute) - Plan Plan: cpm as per psych
[2017-08-28] MEDS ORDERED: Haloperidol Lactate 5 mg/mL 1mL Vial ONE (10:39)
[2017-08-28] MEDS ORDERED: Haloperidol Lactate 5 mg/mL 1mL Vial IM ONE (10:39)
[2017-08-28] MEDS: Lactulose 10 Gm/15 mL 30mL UDC PO SCH ×2 (12:32→18:13)
[2017-08-28] MEDS: Multivitamin Tab PO SCH (12:32)
--- NOTE | 2017-08-29 01:22 | Progress Notes ---
DATE: 08/28/2017 SUBJECTIVE: Staff was spoken to. The patient is interviewed. Mood is noted to be irritable. Affect is constricted. Insight and judgment at this time are noted to be very much impaired. Impulse control seems to be limited. The patient has pain. The patient has been very irritable and angry. The patient's coping skills are noted to be very poor. The patient has been having difficult time. The patient is spitting the Seroquel out and the patient has been stating that he needs the shot rather than oral medications. The patient has been self-abusive and hence it is decided to give the change in the medication and put him on Haldol 2 mg b.i.d. and Seroquel is going to be discontinued at this time because the patient is spotting the medications out. The patient has been placed on haloperidol and is going to be continued noted at this time. ASSESSMENT: The patient is still psychotic and impulsive. PLAN: To continue the patient with the supportive therapy and followup. JOB# [id number]
[2017-08-29] MEDS: Multivitamin Tab PO SCH (09:52)
[2017-08-29] MEDS: Lactulose 10 Gm/15 mL 30mL UDC PO SCH ×2 (09:52→16:38)
[2017-08-29] MEDS ORDERED: Haloperidol Lactate 5 mg/mL 1mL Vial ONE (10:03)
[2017-08-29] MEDS ORDERED: Haloperidol Lactate 5 mg/mL 1mL Vial IM ONE (10:03)
--- NOTE | 2017-08-29 10:52 | Internal Medicine Prog Note ---
Internal Medicine Subjective - Subjective Service Date: 08/29/17 Patient seen and examined:: with staff Patient is:: awake, verbal Per staff patient has:: no adverse event Internal Medicine Objective - Results Result Diagrams: 08/22/17 18:10 08/22/17 18:10 Recent Labs: Laboratory Last Values WBC 8.1 Th/cmm (4.8-10.8) 08/22/17 18:10 RBC 4.51 Mil/cmm (3.80-5.80) 08/22/17 18:10 Hgb 11.4 gm/dL (12-16) L 08/22/17 18:10 Hct 34.7 % (41.0-60) L 08/22/17 18:10 MCV 76.9 fl (80-99) L 08/22/17 18:10 MCH 25.2 pg (27.0-31.0) L 08/22/17 18:10 MCHC Differential 32.8 pg (28.0-36.0) 08/22/17 18:10 RDW 14.3 % (11.5-20.0) 08/22/17 18:10 Plt Count 417 Th/cmm (150-400) H 08/22/17 18:10 MPV 7.8 fl 08/22/17 18:10 Neutrophils % 61.9 % (40.0-80.0) 08/22/17 18:10 Lymphocytes % 28.1 % (20.0-50.0) 08/22/17 18:10 Monocytes % 6.1 % (2.0-10.0) 08/22/17 18:10 Eosinophils % 3.4 % (0.0-5.0) 08/22/17 18:10 Basophils % 0.5 % (0.0-2.0) 08/22/17 18:10 PT 10.5 SECONDS (9.5-11.5) 08/22/17 18:10 INR 1.01 (0.5-1.4) 08/22/17 18:10 PTT (Actin FS) 25.4 SECONDS (26.0-38.0) L 08/22/17 18:10 Sodium 138 mEq/L (136-145) 08/22/17 18:10 Potassium 3.6 mEq/L (3.5-5.1) 08/22/17 18:10 Chloride 106 mEq/L (98-107) 08/22/17 18:10 Carbon Dioxide 26.9 mEq/L (21.0-31.0) 08/22/17 18:10 Anion Gap 8.7 (7.0-16.0) 08/22/17 18:10 BUN 14 mg/dL (7-25) 08/22/17 18:10 Creatinine 0.7 mg/dL (0.7-1.3) 08/22/17 18:10 Est GFR ( Amer) > 60.0 ml/min (>90) 08/22/17 18:10 Est GFR (Non-Af Amer) > 60.0 ml/min 08/22/17 18:10 BUN/Creatinine Ratio 20.0 08/22/17 18:10 Glucose 103 mg/dL (70-105) 08/22/17 18:10 Calcium 9.3 mg/dL (8.6-10.3) 08/22/17 18:10 Total Bilirubin 0.3 mg/dL (0.3-1.0) 08/22/17 18:10 AST 14 U/L (13-39) 08/22/17 18:10 ALT 12 U/L (7-52) 08/22/17 18:10 Alkaline Phosphatase 65 U/L (34-104) 08/22/17 18:10 Troponin I 0.01 ng/mL (0.01-0.05) 08/22/17 18:10 Total Protein 6.7 gm/dL (6.0-8.3) 08/22/17 18:10 Albumin 3.6 gm/dL (4.2-5.5) L 08/22/17 18:10 Globulin 3.1 gm/dL 08/22/17 18:10 Albumin/Globulin Ratio 1.2 (1.0-1.8) 08/22/17 18:10 Triglycerides 84 mg/dL (<150) 08/22/17 18:10 Cholesterol 123 mg/dL (<200) 08/22/17 18:10 LDL Cholesterol Direct 70 mg/dL (75-193) L 08/22/17 18:10 HDL Cholesterol 40 mg/dL (23-92) 08/22/17 18:10 TSH 0.77 uIU/ml (0.34-5.60) 08/22/17 18:10 RPR NONREACTIVE (NONREACTIVE) 08/22/17 18:10 - Physical Exam Vitals and I&O: Vital Signs Temp 98.2 F 08/29/17 06:32 Pulse 77 08/29/17 06:32 Resp 19 08/29/17 06:32 BP 109/67 08/29/17 06:32 Pulse Ox 97 08/29/17 06:32 Intake & Output 08/28/17 08/29/17 08/29/17 18:59 06:59 18:59 Intake Total 1600 120 Balance 1600 120 Weight (lbs) 151 lb 11.2 oz Intake: Oral 1600 120 Other: # Voids 3 3 # Bowel Movements 1 Stool Characteristics Soft Soft Active Medications: Current Medications Acetaminophen (Tylenol) 650 mg PO Q4HR PRN PRN Reason: Mild Pain / Temp above 100 Stop: 10/21/17 20:05 Last Admin: 08/26/17 01:40 Dose: 650 mg Ascorbic Acid (Vitamin C) 500 mg PO DAILY [facility] Stop: 10/22/17 08:59 Last Admin: 08/29/17 09:51 Dose: Not Given Baclofen (Lioresal) 10 mg PO TID [facility] Stop: 10/23/17 13:59 Last Admin: 08/29/17 09:51 Dose: Not Given Divalproex Sodium (Depakote Sprinkle) 250 mg PO Q12HR [facility] PRN Reason: Protocol Stop: 10/22/17 08:59 Last Admin: 08/29/17 09:52 Dose: Not Given Gabapentin (Neurontin) 400 mg PO QID [facility] Stop: 10/22/17 08:59 Last Admin: 08/29/17 09:52 Dose: Not Given Haloperidol (Haldol) 2 mg PO BID [facility] PRN Reason: Protocol Stop: 10/27/17 16:59 Last Admin: 08/29/17 09:52 Dose: Not Given Lactulose (Cephulac) 20 gm PO BID [facility] Stop: 10/22/17 08:59 Last Admin: 08/29/17 09:52 Dose: Not Given Lorazepam (Ativan) 0.5 mg PO Q4HR PRN; Protocol PRN Reason: Agitation Stop: 10/22/17 07:50 Last Admin: 08/27/17 17:34 Dose: 0.5 mg Magnesium Hydroxide (Milk Of Magnesia) 30 ml PO HS PRN PRN Reason: Constipation Multivitamins/Vitamin C (Theragran) 1 tab PO DAILY [facility] Stop: 10/22/17 08:59 Last Admin: 08/29/17 09:52 Dose: Not Given Senna (Senna) 8.6 mg PO BID [facility] Stop: 10/22/17 08:59 Last Admin: 08/29/17 09:52 Dose: Not Given Trazodone HCl (Desyrel) 50 mg PO HS [facility] PRN Reason: Protocol Stop: 10/22/17 20:59 Last Admin: 08/28/17 21:12 Dose: 50 mg Zinc Sulfate (Zinc Sulfate) 220 mg PO DAILY [facility] Stop: 10/22/17 08:59 Last Admin: 08/29/17 09:52 Dose: Not Given Zolpidem Tartrate (Ambien) 5 mg PO HS PRN PRN Reason: Insomnia Stop: 10/21/17 20:05 General: alert HEENT: NC/AT, PERRLA Lungs: CTAB Cardiovascular: RRR, Normal S1, Normal S2, without murmur Abdomen: soft, non-tender, non-distended, positive bowel sound Neurological: alert Internal Medicine Assmt/Plan - Assessment Assessment: Acute psychosis H/O: CVA h/o dementia h/o transient ischemic attack - Plan Plan: safety precautions continue current plan of care psych f/u Nutritional Asmnt/Malnutr-PDOC - Dietary Evaluation Malnutrition Findings (Please click <Entered> for more info): Nutritional Asmnt/Malnutrition Start: 08/28/17 17: 00 Text: Status: Complete Freq: Document 08/28/17 17:00 GSUN (Rec: 08/28/17 17:26 [email or web address] [email or web address]) Nutritional Asmnt/Malnutrition Patient General Information Nutritional Screening Moderate Risk Screening Diagnosis Psychosis NOS, r/o schizophrenia, dementia behavioral change Pertinent Medical Hx/Surgical Hx CVA, TIA, dementia Subjective Information 67 year old male from SNF. Visited pt during meal time. Pt wast talkative, however difficult to understand. Per nursing noted, pt is very confused and forgetful. Unable to itnerview. Observed pt self feeding without difficulties. Avg PO intake 55 % of meals past 15 meals since adm, meeting 67% lower end kcal and 77% prot needs. Spoke to [employer] regarding inadequate intake, [employer] reported pt prefers beverages over solid food. CBW 151.7lb via bedscale , questionable difference with EMR 230lb. Pt with mild wasting to chest only. Current Diet Order/ Nutrition Support [facility] soft ground Pertinent Medications Vitamin C, Haldol, Cephulac, MOM, Theragran, Senna, Zinc Sulfate Pertinent Labs Reviewed. Nutritional Hx/Data Height 5 ft 10 in Height (Calculated Centimeters) 177.8 Current Weight (lbs) 151 lb 11.2 oz Weight (Calculated Kilograms) 68.8 Weight (Calculated Grams) [address]643.0 [place] Body Weight 166 GI Symptoms Food Allergies No Usual diet at home [facility] soft, ground Skin Integrity/Comment: Fernando Velazquez. Skin intact. Current %PO Fair (50-74%) Estimated Nutritional Goals Calories/Kcals/Kg IBW 166lb/75.5kg Kcals Calculated 1888-2265kcal (25-30kcal/kg) Protein Calculated 76g (1g/kg) Fluid: ml 1888-2265ml (1ml/kcal) Nutritional Problem 1. Problem Problem Inadequate oral food beverage intake related to Etiology likely cognition, preferences aeb Signs/Symptoms: meeting 67% lower end kcal and 77% prot needs Intervention/Recommendation Comments 1. Continue on ground diet. Recommend Boost Breeze TID. Avg PO intake is inadequate, meeting 67% lower end kcal and 77% prot needs 2. Obtain accurate weight. CBW 151.7lb via bedscale vs 230lb EMR adm weight. Expected Outcomes/Goals Expected Outcomes/Goals 1. PO intake to meet at least 75% of estimated nutritinoal needs.
--- NOTE | 2017-08-30 00:01 | Progress Notes ---
DATE: 08/29/2017 SUBJECTIVE: Staff was spoken to. The patient is interviewed. Mood is noted to be irritable. The patient is self-abusive. Insight and judgment at this time are noted to be still impaired. Impulse control is noted to be poor. Coping skills are noted to be very poor. The patient has been having difficult time to cope with the stress. No side effects to the medications are noted at this time. The patient has been very irritable and angry and not listening to. The patient has been given a dose of Haldol, Benadryl, and Ativan this morning. ASSESSMENT: The patient is still psychotic and impulsive, self-abusive. PLAN: To continue the patient with the current medications and follow. JOB# [id number]
[2017-08-30] MEDS: Multivitamin Tab PO SCH (09:08)
[2017-08-30] MEDS: Lactulose 10 Gm/15 mL 30mL UDC PO SCH ×2 (09:08→17:36)
--- NOTE | 2017-08-30 20:55 | Progress Notes ---
DATE: 08/30/2017 SUBJECTIVE: The patient was seen in his room, lying in the bed. The patient is confused. No agitation or aggressive behaviors. The patient's confusion due to medical condition. Otherwise, the patient appears to be comfortable in no acute distress. OBJECTIVE: VITAL SIGNS: Temperature 97.9, heart rate of 82, blood pressure 114/69, saturation 98% on room air, and respiration of 20. HEENT: Head is atraumatic and normocephalic. Eyes: Bilateral conjunctivae are clear. Bilateral pupils are equally round and reactive. NECK: Supple. No JVD. CARDIOVASCULAR: S1 and S2, without murmur. PULMONARY: Clear to auscultation. GASTROINTESTINAL: Soft and nontender without guarding. Positive bowel sounds. MUSCULOSKELETAL: No clubbing and no cyanosis noted. ASSESSMENT: 1. Psychosis. 2. Dementia. 3. History of cerebrovascular accident. 4. Osteoarthritis. PLAN: We will keep the patient in Psychiatric Unit. We will follow up with a psychiatrist to monitor the patient's condition and behavior and possible medication adjustment. Treatment plans were discussed with the patient's nurse. Treatment plans were discussed with Dr. Painter. JOB# [id number]
[2017-08-31] MEDS: Lactulose 10 Gm/15 mL 30mL UDC PO SCH ×2 (08:43→17:54)
[2017-08-31] MEDS: Multivitamin Tab PO SCH (08:44)
--- NOTE | 2017-08-31 09:58 | General Progress Note ---
Subjective - Review of Systems Events since last encounter: no acute distress patient confused Objective - Results Result Diagrams: 08/22/17 18:10 08/22/17 18:10 Recent Labs: Laboratory Last Values WBC 8.1 Th/cmm (4.8-10.8) 08/22/17 18:10 RBC 4.51 Mil/cmm (3.80-5.80) 08/22/17 18:10 Hgb 11.4 gm/dL (12-16) L 08/22/17 18:10 Hct 34.7 % (41.0-60) L 08/22/17 18:10 MCV 76.9 fl (80-99) L 08/22/17 18:10 MCH 25.2 pg (27.0-31.0) L 08/22/17 18:10 MCHC Differential 32.8 pg (28.0-36.0) 08/22/17 18:10 RDW 14.3 % (11.5-20.0) 08/22/17 18:10 Plt Count 417 Th/cmm (150-400) H 08/22/17 18:10 MPV 7.8 fl 08/22/17 18:10 Neutrophils % 61.9 % (40.0-80.0) 08/22/17 18:10 Lymphocytes % 28.1 % (20.0-50.0) 08/22/17 18:10 Monocytes % 6.1 % (2.0-10.0) 08/22/17 18:10 Eosinophils % 3.4 % (0.0-5.0) 08/22/17 18:10 Basophils % 0.5 % (0.0-2.0) 08/22/17 18:10 PT 10.5 SECONDS (9.5-11.5) 08/22/17 18:10 INR 1.01 (0.5-1.4) 08/22/17 18:10 PTT (Actin FS) 25.4 SECONDS (26.0-38.0) L 08/22/17 18:10 Sodium 138 mEq/L (136-145) 08/22/17 18:10 Potassium 3.6 mEq/L (3.5-5.1) 08/22/17 18:10 Chloride 106 mEq/L (98-107) 08/22/17 18:10 Carbon Dioxide 26.9 mEq/L (21.0-31.0) 08/22/17 18:10 Anion Gap 8.7 (7.0-16.0) 08/22/17 18:10 BUN 14 mg/dL (7-25) 08/22/17 18:10 Creatinine 0.7 mg/dL (0.7-1.3) 08/22/17 18:10 Est GFR ( Amer) > 60.0 ml/min (>90) 08/22/17 18:10 Est GFR (Non-Af Amer) > 60.0 ml/min 08/22/17 18:10 BUN/Creatinine Ratio 20.0 08/22/17 18:10 Glucose 103 mg/dL (70-105) 08/22/17 18:10 Calcium 9.3 mg/dL (8.6-10.3) 08/22/17 18:10 Total Bilirubin 0.3 mg/dL (0.3-1.0) 08/22/17 18:10 AST 14 U/L (13-39) 08/22/17 18:10 ALT 12 U/L (7-52) 08/22/17 18:10 Alkaline Phosphatase 65 U/L (34-104) 08/22/17 18:10 Troponin I 0.01 ng/mL (0.01-0.05) 08/22/17 18:10 Total Protein 6.7 gm/dL (6.0-8.3) 08/22/17 18:10 Albumin 3.6 gm/dL (4.2-5.5) L 08/22/17 18:10 Globulin 3.1 gm/dL 08/22/17 18:10 Albumin/Globulin Ratio 1.2 (1.0-1.8) 08/22/17 18:10 Triglycerides 84 mg/dL (<150) 08/22/17 18:10 Cholesterol 123 mg/dL (<200) 08/22/17 18:10 LDL Cholesterol Direct 70 mg/dL (75-193) L 08/22/17 18:10 HDL Cholesterol 40 mg/dL (23-92) 08/22/17 18:10 TSH 0.77 uIU/ml (0.34-5.60) 08/22/17 18:10 RPR NONREACTIVE (NONREACTIVE) 08/22/17 18:10 - Physical Exam Vitals and I&O: Vital Signs Temp 97.8 F 08/30/17 20:00 Pulse 95 08/30/17 20:00 Resp 18 08/30/17 20:00 BP 135/59 08/30/17 20:00 Pulse Ox 98 08/30/17 20:00 Intake & Output 08/30/17 08/31/17 08/31/17 18:59 06:59 18:59 Intake Total 850 Balance 850 Intake: Oral 850 Other: # Voids 4 # Bowel Movements 1 Active Medications: Current Medications Acetaminophen (Tylenol) 650 mg PO Q4HR PRN PRN Reason: Mild Pain / Temp above 100 Stop: 10/21/17 20:05 Last Admin: 08/31/17 08:44 Dose: 650 mg Ascorbic Acid (Vitamin C) 500 mg PO DAILY [facility] Stop: 10/22/17 08:59 Last Admin: 08/31/17 08:44 Dose: 500 mg Baclofen (Lioresal) 10 mg PO TID [facility] Stop: 10/23/17 13:59 Last Admin: 08/31/17 08:44 Dose: 10 mg Divalproex Sodium (Depakote Sprinkle) 250 mg PO Q12HR [facility] PRN Reason: Protocol Stop: 10/22/17 08:59 Last Admin: 08/31/17 08:44 Dose: 250 mg Gabapentin (Neurontin) 400 mg PO QID [facility] Stop: 10/22/17 08:59 Last Admin: 08/31/17 08:44 Dose: 400 mg Haloperidol (Haldol) 2 mg PO BID [facility] PRN Reason: Protocol Stop: 10/27/17 16:59 Last Admin: 08/31/17 08:44 Dose: 2 mg Lactulose (Cephulac) 20 gm PO BID [facility] Stop: 10/22/17 08:59 Last Admin: 08/31/17 08:43 Dose: 20 gm Lorazepam (Ativan) 0.5 mg PO Q4HR PRN; Protocol PRN Reason: Agitation Stop: 10/22/17 07:50 Last Admin: 08/31/17 00:18 Dose: 0.5 mg Magnesium Hydroxide (Milk Of Magnesia) 30 ml PO HS PRN PRN Reason: Constipation Multivitamins/Vitamin C (Theragran) 1 tab PO DAILY [facility] Stop: 10/22/17 08:59 Last Admin: 08/31/17 08:44 Dose: 1 tab Senna (Senna) 8.6 mg PO BID [facility] Stop: 10/22/17 08:59 Last Admin: 08/31/17 08:44 Dose: 8.6 mg Trazodone HCl (Desyrel) 50 mg PO HS [facility] PRN Reason: Protocol Stop: 10/22/17 20:59 Last Admin: 08/30/17 21:45 Dose: Not Given Zinc Sulfate (Zinc Sulfate) 220 mg PO DAILY [facility] Stop: 10/22/17 08:59 Last Admin: 08/31/17 08:44 Dose: 220 mg Zolpidem Tartrate (Ambien) 5 mg PO HS PRN PRN Reason: Insomnia Stop: 10/21/17 20:05 General: No acute distress HEENT: Atraumatic Cardiovascular: Regular rate, Normal S1, Normal S2 Assessment/Plan - Problem List Patient Problems: All Active Problems Acute psychosis (Acute) F23 H/O: CVA (cerebrovascular accident) (Acute) Z86.73 h/o dementia (Acute) h/o transient ischemic attack (Acute) - Plan Plan: cpm as per psych Nutritional Asmnt/Malnutr-PDOC - Dietary Evaluation Malnutrition Findings (Please click <Entered> for more info): Nutritional Asmnt/Malnutrition Start: 08/28/17 17: 00 Text: Status: Complete Freq: Document 08/28/17 17:00 MAUREEN (Rec: 08/28/17 17:26 [email or web address]) Nutritional Asmnt/Malnutrition Patient General Information Nutritional Screening Moderate Risk Screening Diagnosis Psychosis NOS, r/o schizophrenia, dementia behavioral change Pertinent Medical Hx/Surgical Hx CVA, TIA, dementia Subjective Information 67 year old male from SNF. Visited pt during meal time. Pt wast talkative, however difficult to understand. Per nursing noted, pt is very confused and forgetful. Unable to itnerview. Observed pt self feeding without difficulties. Avg PO intake 55 % of meals past 15 meals since adm, meeting 67% lower end kcal and 77% prot needs. Spoke to AIRSET CASTER regarding inadequate intake, AIRSET CASTER reported pt prefers beverages over solid food. CBW 151.7lb via bedscale , questionable difference with EMR 230lb. Pt with mild wasting to chest only. Current Diet Order/ Nutrition Support [facility] soft ground Pertinent Medications Vitamin C, Haldol, Cephulac, MOM, Theragran, Senna, Zinc Sulfate Pertinent Labs Reviewed. Nutritional Hx/Data Height 1.78 m Height (Calculated Centimeters) 177.8 Current Weight (lbs) 68.81 kg Weight (Calculated Kilograms) 68.8 Weight (Calculated Grams) 34385.0 [place] Body Weight 166 GI Symptoms Food Allergies No Usual diet at home [facility] Well[facility] : [facility] soft, ground Skin Integrity/Comment: Fernando 16. Skin intact. Current %PO Fair (50-74%) Estimated Nutritional Goals Calories/Kcals/Kg IBW 166lb/75.5kg Kcals Calculated 1888-2265kcal (25-30kcal/kg) Protein Calculated 76g (1g/kg) Fluid: ml 1888-2265ml (1ml/kcal) Nutritional Problem 1. Problem Problem Inadequate oral food beverage intake related to Etiology likely cognition, preferences aeb Signs/Symptoms: meeting 67% lower end kcal and 77% prot needs Intervention/Recommendation Comments 1. Continue on ground diet. Recommend Boost Breeze TID. Avg PO intake is inadequate, meeting 67% lower end kcal and 77% prot needs 2. Obtain accurate weight. CBW 151.7lb via bedscale vs 230lb EMR adm weight. Expected Outcomes/Goals Expected Outcomes/Goals 1. PO intake to meet at least 75% of estimated nutritinoal needs.
--- NOTE | 2017-09-01 02:35 | Progress Notes ---
DATE: 08/30/2017 SUBJECTIVE: Staff was spoken to. The patient is interviewed. Mood is noted to be irritable. Affect is constricted. Coping skills are noted to be poor. The patient has been able to comply with the treatment. Self-abusive behavior is still a concern, but the patient could be redirectable this morning. No side effects to the medications are noted. ASSESSMENT: The patient is still psychotic and impulsive. PLAN: To continue the patient with supportive therapy. I encouraged the patient to verbalize the concerns rather than to act out. The patient is currently on Depakote and Haldol and has been able to tolerate the medication. JOB# [id number]
[2017-09-01] MEDS: Multivitamin Tab PO SCH (17:42)
[2017-09-01] MEDS: Lactulose 10 Gm/15 mL 30mL UDC PO SCH ×2 (17:42)
--- NOTE | 2017-09-01 19:44 | Internal Medicine Prog Note ---
Internal Medicine Subjective - Subjective Service Date: 09/01/17 Patient is:: awake, verbal Per staff patient has:: no adverse event Internal Medicine Objective - Results Result Diagrams: 08/22/17 18:10 08/22/17 18:10 Recent Labs: Laboratory Last Values WBC 8.1 Th/cmm (4.8-10.8) 08/22/17 18:10 RBC 4.51 Mil/cmm (3.80-5.80) 08/22/17 18:10 Hgb 11.4 gm/dL (12-16) L 08/22/17 18:10 Hct 34.7 % (41.0-60) L 08/22/17 18:10 MCV 76.9 fl (80-99) L 08/22/17 18:10 MCH 25.2 pg (27.0-31.0) L 08/22/17 18:10 MCHC Differential 32.8 pg (28.0-36.0) 08/22/17 18:10 RDW 14.3 % (11.5-20.0) 08/22/17 18:10 Plt Count 417 Th/cmm (150-400) H 08/22/17 18:10 MPV 7.8 fl 08/22/17 18:10 Neutrophils % 61.9 % (40.0-80.0) 08/22/17 18:10 Lymphocytes % 28.1 % (20.0-50.0) 08/22/17 18:10 Monocytes % 6.1 % (2.0-10.0) 08/22/17 18:10 Eosinophils % 3.4 % (0.0-5.0) 08/22/17 18:10 Basophils % 0.5 % (0.0-2.0) 08/22/17 18:10 PT 10.5 SECONDS (9.5-11.5) 08/22/17 18:10 INR 1.01 (0.5-1.4) 08/22/17 18:10 PTT (Actin FS) 25.4 SECONDS (26.0-38.0) L 08/22/17 18:10 Sodium 138 mEq/L (136-145) 08/22/17 18:10 Potassium 3.6 mEq/L (3.5-5.1) 08/22/17 18:10 Chloride 106 mEq/L (98-107) 08/22/17 18:10 Carbon Dioxide 26.9 mEq/L (21.0-31.0) 08/22/17 18:10 Anion Gap 8.7 (7.0-16.0) 08/22/17 18:10 BUN 14 mg/dL (7-25) 08/22/17 18:10 Creatinine 0.7 mg/dL (0.7-1.3) 08/22/17 18:10 Est GFR ( Amer) > 60.0 ml/min (>90) 08/22/17 18:10 Est GFR (Non-Af Amer) > 60.0 ml/min 08/22/17 18:10 BUN/Creatinine Ratio 20.0 08/22/17 18:10 Glucose 103 mg/dL (70-105) 08/22/17 18:10 Calcium 9.3 mg/dL (8.6-10.3) 08/22/17 18:10 Total Bilirubin 0.3 mg/dL (0.3-1.0) 08/22/17 18:10 AST 14 U/L (13-39) 08/22/17 18:10 ALT 12 U/L (7-52) 08/22/17 18:10 Alkaline Phosphatase 65 U/L (34-104) 08/22/17 18:10 Troponin I 0.01 ng/mL (0.01-0.05) 08/22/17 18:10 Total Protein 6.7 gm/dL (6.0-8.3) 08/22/17 18:10 Albumin 3.6 gm/dL (4.2-5.5) L 08/22/17 18:10 Globulin 3.1 gm/dL 08/22/17 18:10 Albumin/Globulin Ratio 1.2 (1.0-1.8) 08/22/17 18:10 Triglycerides 84 mg/dL (<150) 08/22/17 18:10 Cholesterol 123 mg/dL (<200) 08/22/17 18:10 LDL Cholesterol Direct 70 mg/dL (75-193) L 08/22/17 18:10 HDL Cholesterol 40 mg/dL (23-92) 08/22/17 18:10 TSH 0.77 uIU/ml (0.34-5.60) 08/22/17 18:10 RPR NONREACTIVE (NONREACTIVE) 08/22/17 18:10 - Physical Exam Vitals and I&O: Vital Signs Temp 97.8 F 09/01/17 15:26 Pulse 76 09/01/17 15:26 Resp 20 09/01/17 15:26 BP 116/69 09/01/17 15:26 Pulse Ox 97 09/01/17 15:26 Intake & Output 09/01/17 09/01/17 09/02/17 06:59 18:59 06:59 Intake Total 420 680 Balance 420 680 Intake: Oral 420 680 Other: # Voids 2 4 # Bowel Movements 1 2 Active Medications: Current Medications Acetaminophen (Tylenol) 650 mg PO Q4HR PRN PRN Reason: Mild Pain / Temp above 100 Stop: 10/21/17 20:05 Last Admin: 08/31/17 08:44 Dose: 650 mg Ascorbic Acid (Vitamin C) 500 mg PO DAILY [facility] Stop: 10/22/17 08:59 Last Admin: 09/01/17 17:41 Dose: 500 mg Baclofen (Lioresal) 10 mg PO TID [facility] Stop: 10/23/17 13:59 Last Admin: 09/01/17 17:42 Dose: 10 mg Divalproex Sodium (Depakote Sprinkle) 250 mg PO Q12HR [facility] PRN Reason: Protocol Stop: 10/22/17 08:59 Last Admin: 09/01/17 17:42 Dose: 250 mg Gabapentin (Neurontin) 400 mg PO QID [facility] Stop: 10/22/17 08:59 Last Admin: 09/01/17 17:42 Dose: 400 mg Lactulose (Cephulac) 20 gm PO BID [facility] Stop: 10/22/17 08:59 Last Admin: 09/01/17 17:42 Dose: 20 gm Lorazepam (Ativan) 0.5 mg PO Q4HR PRN; Protocol PRN Reason: Agitation Stop: 10/22/17 07:50 Last Admin: 08/31/17 00:18 Dose: 0.5 mg Magnesium Hydroxide (Milk Of Magnesia) 30 ml PO HS PRN PRN Reason: Constipation Multivitamins/Vitamin C (Theragran) 1 tab PO DAILY [facility] Stop: 10/22/17 08:59 Last Admin: 09/01/17 17:42 Dose: 1 tab Olanzapine (Zyprexa) 5 mg PO HS [facility] PRN Reason: Protocol Stop: 10/31/17 20:59 Senna (Senna) 8.6 mg PO BID [facility] Stop: 10/22/17 08:59 Last Admin: 09/01/17 17:42 Dose: 8.6 mg Trazodone HCl (Desyrel) 50 mg PO HS [facility] PRN Reason: Protocol Stop: 10/22/17 20:59 Last Admin: 08/31/17 21:20 Dose: 50 mg Zinc Sulfate (Zinc Sulfate) 220 mg PO DAILY [facility] Stop: 10/22/17 08:59 Last Admin: 09/01/17 17:43 Dose: 220 mg Zolpidem Tartrate (Ambien) 5 mg PO HS PRN PRN Reason: Insomnia Stop: 10/21/17 20:05 General: alert HEENT: NC/AT, PERRLA Lungs: CTAB Cardiovascular: RRR, Normal S1, Normal S2, without murmur Abdomen: soft, non-tender, non-distended, positive bowel sound Neurological: alert Internal Medicine Assmt/Plan - Assessment Assessment: Acute psychosis H/O: CVA h/o dementia h/o transient ischemic attack - Plan Plan: safety precautions continue current plan of care psych f/u Nutritional Asmnt/Malnutr-PDOC - Dietary Evaluation Malnutrition Findings (Please click <Entered> for more info): Nutritional Asmnt/Malnutrition Start: 08/28/17 17: 00 Text: Status: Complete Freq: Document 08/28/17 17:00 [email or web address] (Rec: 08/28/17 17:26 [email or web address]) Nutritional Asmnt/Malnutrition Patient General Information Nutritional Screening Moderate Risk Screening Diagnosis Psychosis NOS, r/o schizophrenia, dementia behavioral change Pertinent Medical Hx/Surgical Hx CVA, TIA, dementia Subjective Information 67 year old male from SNF. Visited pt during meal time. Pt wast talkative, however difficult to understand. Per nursing noted, pt is very confused and forgetful. Unable to itnerview. Observed pt self feeding without difficulties. Avg PO intake 55 % of meals past 15 meals since adm, meeting 67% lower end kcal and 77% prot needs. Spoke to DRAGLINE OILER regarding inadequate intake, DRAGLINE OILER reported pt prefers beverages over solid food. CBW 151.7lb via bedscale , questionable difference with EMR 230lb. Pt with mild wasting to chest only. Current Diet Order/ Nutrition Support [facility] soft ground Pertinent Medications Vitamin C, Haldol, Cephulac, MOM, Theragran, Senna, Zinc Sulfate Pertinent Labs Reviewed. Nutritional Hx/Data Height 5 ft 10 in Height (Calculated Centimeters) 177.8 Current Weight (lbs) 151 lb 11.2 oz Weight (Calculated Kilograms) 68.8 Weight (Calculated Grams) 36281.0 [place] Body Weight 166 GI Symptoms Food Allergies No Usual diet at home [facility] Wellness : [facility] soft, ground Skin Integrity/Comment: Fernando 16. Skin intact. Current %PO Fair (50-74%) Estimated Nutritional Goals Calories/Kcals/Kg IBW 166lb/75.5kg Kcals Calculated 1888-2265kcal (25-30kcal/kg) Protein Calculated 76g (1g/kg) Fluid: ml 1888-2265ml (1ml/kcal) Nutritional Problem 1. Problem Problem Inadequate oral food beverage intake related to Etiology likely cognition, preferences aeb Signs/Symptoms: meeting 67% lower end kcal and 77% prot needs Intervention/Recommendation Comments 1. Continue on ground diet. Recommend Boost Breeze TID. Avg PO intake is inadequate, meeting 67% lower end kcal and 77% prot needs 2. Obtain accurate weight. CBW 151.7lb via bedscale vs 230lb EMR adm weight. Expected Outcomes/Goals Expected Outcomes/Goals 1. PO intake to meet at least 75% of estimated nutritinoal needs.
--- NOTE | 2017-09-02 03:11 | Progress Notes ---
DATE: 08/31/2017 SUBJECTIVE: Staff was spoken to. The patient is interviewed. Mood is noted to be irritable. Affect is constricted. The patient is still self abusive. Coping skills are noted to be poor. The patient has no insight into his illness. ASSESSMENT: The patient is still psychotic and self abusive. PLAN: To continue the patient with the supportive therapy. I encouraged the patient to verbalize the concerns rather than to act out. [facility]# [id number]
--- NOTE | 2017-09-02 10:05 | General Progress Note ---
Subjective - Review of Systems Events since last encounter: patient remains psychotic , unpredictable Objective - Results Result Diagrams: 08/22/17 18:10 08/22/17 18:10 Recent Labs: Laboratory Last Values WBC 8.1 Th/cmm (4.8-10.8) 08/22/17 18:10 RBC 4.51 Mil/cmm (3.80-5.80) 08/22/17 18:10 Hgb 11.4 gm/dL (12-16) L 08/22/17 18:10 Hct 34.7 % (41.0-60) L 08/22/17 18:10 MCV 76.9 fl (80-99) L 08/22/17 18:10 MCH 25.2 pg (27.0-31.0) L 08/22/17 18:10 MCHC Differential 32.8 pg (28.0-36.0) 08/22/17 18:10 RDW 14.3 % (11.5-20.0) 08/22/17 18:10 Plt Count 417 Th/cmm (150-400) H 08/22/17 18:10 MPV 7.8 fl 08/22/17 18:10 Neutrophils % 61.9 % (40.0-80.0) 08/22/17 18:10 Lymphocytes % 28.1 % (20.0-50.0) 08/22/17 18:10 Monocytes % 6.1 % (2.0-10.0) 08/22/17 18:10 Eosinophils % 3.4 % (0.0-5.0) 08/22/17 18:10 Basophils % 0.5 % (0.0-2.0) 08/22/17 18:10 PT 10.5 SECONDS (9.5-11.5) 08/22/17 18:10 INR 1.01 (0.5-1.4) 08/22/17 18:10 PTT (Actin FS) 25.4 SECONDS (26.0-38.0) L 08/22/17 18:10 Sodium 138 mEq/L (136-145) 08/22/17 18:10 Potassium 3.6 mEq/L (3.5-5.1) 08/22/17 18:10 Chloride 106 mEq/L (98-107) 08/22/17 18:10 Carbon Dioxide 26.9 mEq/L (21.0-31.0) 08/22/17 18:10 Anion Gap 8.7 (7.0-16.0) 08/22/17 18:10 BUN 14 mg/dL (7-25) 08/22/17 18:10 Creatinine 0.7 mg/dL (0.7-1.3) 08/22/17 18:10 Est GFR ( Amer) > 60.0 ml/min (>90) 08/22/17 18:10 Est GFR (Non-Af Amer) > 60.0 ml/min 08/22/17 18:10 BUN/Creatinine Ratio 20.0 08/22/17 18:10 Glucose 103 mg/dL (70-105) 08/22/17 18:10 Calcium 9.3 mg/dL (8.6-10.3) 08/22/17 18:10 Total Bilirubin 0.3 mg/dL (0.3-1.0) 08/22/17 18:10 AST 14 U/L (13-39) 08/22/17 18:10 ALT 12 U/L (7-52) 08/22/17 18:10 Alkaline Phosphatase 65 U/L (34-104) 08/22/17 18:10 Troponin I 0.01 ng/mL (0.01-0.05) 08/22/17 18:10 Total Protein 6.7 gm/dL (6.0-8.3) 08/22/17 18:10 Albumin 3.6 gm/dL (4.2-5.5) L 08/22/17 18:10 Globulin 3.1 gm/dL 08/22/17 18:10 Albumin/Globulin Ratio 1.2 (1.0-1.8) 08/22/17 18:10 Triglycerides 84 mg/dL (<150) 08/22/17 18:10 Cholesterol 123 mg/dL (<200) 08/22/17 18:10 LDL Cholesterol Direct 70 mg/dL (75-193) L 08/22/17 18:10 HDL Cholesterol 40 mg/dL (23-92) 08/22/17 18:10 TSH 0.77 uIU/ml (0.34-5.60) 08/22/17 18:10 RPR NONREACTIVE (NONREACTIVE) 08/22/17 18:10 - Physical Exam Vitals and I&O: Vital Signs Temp 97.8 F 09/02/17 06:51 Pulse 74 09/02/17 06:51 Resp 18 09/02/17 06:51 BP 111/78 09/02/17 06:51 Pulse Ox 97 09/02/17 06:51 Intake & Output 09/01/17 09/02/17 09/02/17 18:59 06:59 18:59 Intake Total 680 240 Balance 680 240 Intake: Oral 680 240 Other: # Voids 4 3 # Bowel Movements 2 1 Active Medications: Current Medications Acetaminophen (Tylenol) 650 mg PO Q4HR PRN PRN Reason: Mild Pain / Temp above 100 Stop: 10/21/17 20:05 Last Admin: 08/31/17 08:44 Dose: 650 mg Ascorbic Acid (Vitamin C) 500 mg PO DAILY [facility] Stop: 10/22/17 08:59 Last Admin: 09/02/17 09:19 Dose: 500 mg Baclofen (Lioresal) 10 mg PO TID [facility] Stop: 10/23/17 13:59 Last Admin: 09/02/17 09:20 Dose: 10 mg Divalproex Sodium (Depakote Sprinkle) 250 mg PO Q12HR [facility] PRN Reason: Protocol Stop: 10/22/17 08:59 Last Admin: 09/02/17 09:20 Dose: 250 mg Gabapentin (Neurontin) 400 mg PO QID [facility] Stop: 10/22/17 08:59 Last Admin: 09/02/17 09:19 Dose: 400 mg Lactulose (Cephulac) 20 gm PO BID [facility] Stop: 10/22/17 08:59 Last Admin: 09/01/17 17:42 Dose: 20 gm Lorazepam (Ativan) 0.5 mg PO Q4HR PRN; Protocol PRN Reason: Agitation Stop: 10/22/17 07:50 Last Admin: 08/31/17 00:18 Dose: 0.5 mg Magnesium Hydroxide (Milk Of Magnesia) 30 ml PO HS PRN PRN Reason: Constipation Multivitamins/Vitamin C (Theragran) 1 tab PO DAILY [facility] Stop: 10/22/17 08:59 Last Admin: 09/01/17 17:42 Dose: 1 tab Olanzapine (Zyprexa) 5 mg PO HS [facility] PRN Reason: Protocol Stop: 10/31/17 20:59 Last Admin: 09/01/17 22:48 Dose: 5 mg Senna (Senna) 8.6 mg PO BID [facility] Stop: 10/22/17 08:59 Last Admin: 09/02/17 09:19 Dose: 8.6 mg Trazodone HCl (Desyrel) 50 mg PO HS [facility] PRN Reason: Protocol Stop: 10/22/17 20:59 Last Admin: 09/01/17 22:48 Dose: 50 mg Zinc Sulfate (Zinc Sulfate) 220 mg PO DAILY [facility] Stop: 10/22/17 08:59 Last Admin: 09/02/17 09:19 Dose: 220 mg Zolpidem Tartrate (Ambien) 5 mg PO HS PRN PRN Reason: Insomnia Stop: 10/21/17 20:05 General: No acute distress HEENT: Atraumatic Cardiovascular: Regular rate, Normal S1, Normal S2 Assessment/Plan - Problem List Patient Problems: All Active Problems Acute psychosis (Acute) F23 H/O: CVA (cerebrovascular accident) (Acute) Z86.73 h/o dementia (Acute) h/o transient ischemic attack (Acute) - Plan Plan: cpm as per psych Nutritional Asmnt/Malnutr-PDOC - Dietary Evaluation Malnutrition Findings (Please click <Entered> for more info): Nutritional Asmnt/Malnutrition Start: 08/28/17 17: 00 Text: Status: Complete Freq: Document 08/28/17 17:00 UN (Rec: 08/28/17 17:26 [email or web address]) Nutritional Asmnt/Malnutrition Patient General Information Nutritional Screening Moderate Risk Screening Diagnosis Psychosis NOS, r/o schizophrenia, dementia behavioral change Pertinent Medical Hx/Surgical Hx CVA, TIA, dementia Subjective Information 67 year old male from SNF. Visited pt during meal time. Pt wast talkative, however difficult to understand. Per nursing noted, pt is very confused and forgetful. Unable to itnerview. Observed pt self feeding without difficulties. Avg PO intake 55 % of meals past 15 meals since adm, meeting 67% lower end kcal and 77% prot needs. Spoke to INDUSTRIAL ORGANIZATIONAL PSYCHOLOGIST regarding inadequate intake, INDUSTRIAL ORGANIZATIONAL PSYCHOLOGIST reported pt prefers beverages over solid food. CBW 151.7lb via bedscale , questionable difference with EMR 230lb. Pt with mild wasting to chest only. Current Diet Order/ Nutrition Support [facility] soft ground Pertinent Medications Vitamin C, Haldol, Cephulac, MOM, Theragran, Senna, Zinc Sulfate Pertinent Labs Reviewed. Nutritional Hx/Data Height 1.78 m Height (Calculated Centimeters) 177.8 Current Weight (lbs) 68.81 kg Weight (Calculated Kilograms) 68.8 Weight (Calculated Grams) 12729.0 [place] Body Weight 166 GI Symptoms Food Allergies No [facility] soft, ground Skin Integrity/Comment: Fernando 16. Skin intact. Current %PO Fair (50-74%) Estimated Nutritional Goals Calories/Kcals/Kg IBW 166lb/75.5kg Kcals Calculated 1888-2265kcal (25-30kcal/kg) Protein Calculated 76g (1g/kg) Fluid: ml 1888-2265ml (1ml/kcal) Nutritional Problem 1. Problem Problem Inadequate oral food beverage intake related to Etiology likely cognition, preferences aeb Signs/Symptoms: meeting 67% lower end kcal and 77% prot needs Intervention/Recommendation Comments 1. Continue on ground diet. Recommend Boost Breeze TID. Avg PO intake is inadequate, meeting 67% lower end kcal and 77% prot needs 2. Obtain accurate weight. CBW 151.7lb via bedscale vs 230lb EMR adm weight. Expected Outcomes/Goals Expected Outcomes/Goals 1. PO intake to meet at least 75% of estimated nutritinoal needs.
--- NOTE | 2017-09-02 20:32 | Progress Notes ---
DATE: 09/01/2017 SUBJECTIVE: Staff was spoken to. Mood is noted to be less irritable today, insight and judgment noted to be improving. Impulse control seems to be fair. No side effects to the medications are noted. The patient has been less aggressive. No self-abusive behavior is noted today. Sleep and appetite are also noted to be improving. The patient, however, has been stating that the medication is making him too anxious and hence it is decided to discontinue the haloperidol and start the patient on Zyprexa and the patient is going to be closely monitored. The patient's self-abusive behavior is coming down. Plan to encourage the patient to verbalize the concerns rather than to act out. The patient has difficult time to accept. The patient is going to be started to 5 mg of Zyprexa at night time and patient is going to be closely monitored. ASSESSMENT: The patient is still psychotic. PLAN: To continue the patient with the current medications. I encouraged the patient to verbalize the concerns rather than to act out. JOB# [id number]
--- NOTE | 2017-09-03 03:59 | Progress Notes ---
DATE: 09/02/2017 SUBJECTIVE: Staff was spoken to. The patient is interviewed. Mood is noted to be less irritable. Affect is appropriate. Insight and judgment noted to be improving. The aggressive behavior has been coming down. The patient has been placed on the Zyprexa yesterday and has been able to tolerate the medications. No side effects to the medications are noted at this time. ASSESSMENT: The patient is stabilizing. PLAN: To continue the patient with the supportive therapy and when placement is available, the patient is going to be discharged. JOB# [id number]
== END 2017-09-02 13:35 | disposition home or self-care (01) | DRG 885 ==
LOC: ER 17:05 → GERO 17:29
PROVIDERS: ADMIT Psychiatry & Neurology Psychiatry; ATTEND Psychiatry & Neurology Psychiatry
DX: F29 Unspecified psychosis not due to a substance or known physiological condition (principal); F03.91 Unspecified dementia, unspecified severity, with behavioral disturbance; M48.02 Spinal stenosis, cervical region; F20.9 Schizophrenia, unspecified; M19.90 Unspecified osteoarthritis, unspecified site; Z86.73 Personal history of transient ischemic attack (TIA), and cerebral infarction without residual deficits
CPT/HCPCS: 36415-UA; 71010-TC; 80053-TC; 80061-TC; 84443-TC; 84484-TC; 85025-TC; 85610-TC; 85730-TC; 86592-TC; 90899; 93005; J1200; J1630; J2060; J7051; Z7610

== ENCOUNTER 2018-02-03 14:45 | Inpatient (IN) | payer MEDICARE, OTHER ==
--- NOTE | 2018-02-03 15:48 | ED Physician Chart ---
ED Chief Complaint/HPI - Patient Information Date Seen:: 02/03/18 Time Seen:: 15:30 Chief Complaint:: Agitation History of Present Illness:: onset x 3 days of agitation and aggressive behavior; no report of SIs, H/As, trauma, neck pain, C/P, SOB, Abd. Pain, A/N/V/D/C,fever, chills, or urinary s/s Allergies:: Allergies Allergy/AdvReac Type Severity Reaction Status Date / Time No Known Allergies Allergy Verified 08/22/17 17:09 Vitals:: Vital Signs - 8 hr 02/03/18 15:29 Temp 98.6 F HR 87 RR 16 BP 102/53 O2 Sat % 96 Historian:: Patient Review:: Nurse's Note Reviewed ED Review of Systems - Review of Systems General/Constitutional: No fever, No chills, No weight loss, No weakness, No diaphoresis, No edema, No loss of appetite Skin: No skin lesions, No rash, No bruising Head: No headache, No light-headedness Eyes: No loss of vision, No pain, No diplopia ENT: No earache, No nasal drainage, No sore throat, No tinnitus Neck: No neck pain, No swelling, No thyromegaly, No stiffness, No mass noted Cardio Vascular: No chest pain, No palpitations, No PND, No orthopnea, No edema Pulmonary: No SOB, No cough, No sputum, No wheezing GI: No nausea, No vomiting, No diarrhea, No pain, No melena, No hematochezia, No constipation, No hematemesis G/U: No dysuria, No frequency, No hematuria, No nacturia Musculoskeletal: No bone or joint pain, No back pain, No muscle pain Endocrine: No polyuria, No polydipsia Psychiatric: Prior psych history, No depression, Anxiety, No suicidal ideation, No homicidal ideation, Auditory hallucination, No visual hallucination Hematopoietic: No bruising, No lymphadenopathy Allergic/Immuno: No urticaria, No angioedema Neurological: No syncope, No focal symptoms, No weakness, No paresthesia, No headache, No seizure, No dizziness, No confusion, No vertigo ED Past Medical History - Past Medical History Obtainable: Yes Past Medical History: HTN Family History: HTN Social History: Non Smoker, No Alcohol, No Drug Use, Single, Care Facility Psychiatricy History: Bipolar Medication: Reviewed Family Medical History - Family Member Mother History Unknown: Yes ED Physical Exam - Physical Examination General/Constitutional: Awake, Well-developed, well-nourished, Alert, No distress, GCS 15, Non-toxic appearing, Ambulatory Head: Atraumatic Eyes: Lids, conjuctiva normal, PERRL, EOMI Skin: Nl inspection, No rash, No skin lesions, No ecchymosis, Well hydrated, No lymphadenopathy ENMT: External ears, nose nl, TM canals nl, Nasal exam nl, Lips, teeth, gums nl , Oropharynx nl, Tonsils nl Neck: Nontender, Full ROM w/o pain, No JVD, No nuchal rigidity, No bruit, No mass, No stridor Other Neck comments:: supple; no meningeal signs Respiratory: Nl effort/Exclusion, Clear to Auscultation, No Wheeze/Rhonchi/Rales Cardio Vascular: RRR, No murmur, gallop, rubs, NL S1 S2, Carotid/Femoral/Distal pulses equal bilaterally GI: No tenderness/rebounding/guarding, No organomegaly, No hernia, Normal BS's, Nondistended, No mass/bruits, No McBurney tenderness Other GI comments:: no pulsatile masses : No CVA tenderness Extremities: No tenderness or effusion, Full ROM, normal strength in all extremities, No edema, Normal digits & nails Neuro/Psych: Alert/oriented, DTR's symmetric, Normal sensory exam, Normal motor strength, Judgement/insight normal, Mood normal, Normal gait, No focal deficits Other Neuro/Psych comments:: + Psychomotor Agitation; no SIs Misc: Normal back, No paraspinal tenderness ED Labs/Radiology/EKG Results - Lab Results Comments:: unremarkable - EKG Interpretations EKG Time:: 16:27 Rate & Rhythm: 86; NSR Comments:: non-specific st-t changes ED Septic Shock - . Is Septic Shock (SBP<90, OR Lactate>4 mmol\L) present?: No - <6hrs of presentation: Vital Signs: Vital Signs - 8 hr 02/03/18 15:29 Temp 98.6 F HR 87 RR 16 BP 102/53 O2 Sat % 96 ED Reassessment (Disposition) - Reassessment Reassessment Condition:: Improved - Diagnosis Diagnosis:: Agitation; Medical Clearance; Bipolar Disorder; Psychosis - Aftercare/Follow up Instructions Aftercare/Follow-Up Instructions:: Counseled pt regarding lab results/diagnosis & need follow up, Counseled pt & family regarding lab results/diagnosis & need follow up - Patient Disposition Discharge/Transfer:: Acute Care w/in this hosp Accepting Physician:: Dr. Osman Time Called:: 1630 Time Responded:: 16:30 Admitted to:: [facility] Spoke to:: Dr. Osman Admitting Medical Physician:: Dr. Osman Admitting Psych Physician:: Dr. Bonilla Condition at Disposition:: Stable, Improved
[2018-02-03 16:07] LABS: % BASOPHILS 0.2 % (0.0-2.0); % EOSINOPHILS 3.6 % (0.0-5.0); % LYMPHOCYTES 19.1 % (20.0-50.0); % MONOCYTES 5.8 % (2.0-10.0); % NEUTROPHILS 71.3 % (40.0-80.0); EOSINOPHILE ABSOLUTE 0.4 Th/cmm (0.1-0.4); HEMATOCRIT 36.7 % (41.0-60); HEMOGLOBIN 12.3 gm/dL (12-16); LYMPHOCYTE ABSOLUTE 2.2 Th/cmm (1.5-3.0); MEAN CELL VOLUME 81.5 fl (80-99); MEAN CORPUSCULAR HEMOGLOBIN 27.2 pg (27.0-31.0); MEAN CORPUSCULAR HGB CONC 33.4 pg (28.0-36.0); MEAN PLATELET VOLUME 7.6 fl; MONOCYTE ABSOLUTE 0.7 Th/cmm (0.3-1.0); NEUTROPHILE ABSOLUTE 8.1 Th/cmm (1.8-8.0); PLATELET COUNT 456 Th/cmm (150-400); RED CELL DISTRIBUTION WIDTH 16.2 % (11.5-20.0); WHITE BLOOD COUNT 11.4 Th/cmm (4.8-10.8)
[2018-02-03 16:24] LABS: ALKALINE PHOSPHATASE 62 U/L (34-104); ANION GAP 8.8 (7.0-16.0); BILIRUBIN,TOTAL 0.3 mg/dL (0.3-1.0); BUN - UREA NITROGEN 21 mg/dL (7-25); CALCIUM SERUM 9.6 mg/dL (8.6-10.3); CHLORIDE 102 mEq/L (98-107); CHOLESTEROL 141 mg/dL (<200); GFR AFRICAN-AMERICAN > 60.0 ml/min (>90); GFR NON AFRICAN-AMERICAN > 60.0 ml/min; GLUCOSE 90 mg/dL (70-105); HDL -HIGH DENSITY LIPOPROTEIN 46 mg/dL (23-92); POTASSIUM SERUM 3.8 mEq/L (3.5-5.1); SALICYLATES (ASPIRIN) < 25.0 mg/L (30.0-100.0); SGOT 24 U/L (13-39); SGPT/ALT 15 U/L (7-52); SODIUM SERUM 135 mEq/L (136-145); TRIGLYCERIDES 127 mg/dL (<150)
[2018-02-03 16:46] LABS: ACETAMINOPHEN < 10.0 ug/mL (10.0-30.0)
[2018-02-03 17:08] VITALS: BP 130/73
[2018-02-03] MEDS ORDERED: Maalox 30 mL Cup PO PRN (17:08)
[2018-02-03] MEDS ORDERED: Magnesium Hydroxide (MOM) 30 mL UDC PO PRN (17:08)
[2018-02-03 18:31] LABS: A1C % 4.8 % (4.0-6.0)
--- NOTE | 2018-02-04 08:39 | History and Physical ---
History of Present Illness - HPI Chief Complaint: Agitation HPI: Patient was send by SNF to ER for evaluation of increased in agitation. 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: No Pertinent Hx GI: Report: No Pertinent Hx Psych: Report: Psychosis Musculoskeletal: Report: Other (Patient non ambulatory) Rheumatologic: Report: No pertinent Hx Infectious Disease: Report: No Pertinent Hx Renal/: Report: No Pertinent Hx Endocrine: Report: No Pertinent Hx Dermatology: Report: No Pertinent Hx - Past Surgical History Past Surgical History: No pertinent Hx Family Medical History - Family Member Mother History Unknown: Yes Social History Smoke: No Alcohol: None Drugs: None Lives: [facility] Domestic Violence: Negative - Medications Home Medications: Home Medication Medication Instructions Recorded Type Acetaminophen [Tylenol] 650 mg PO Q4HR PRN tab 09/02/17 Rx Ascorbic Acid [Vitamin C] 500 mg PO DAILY tab 09/02/17 Rx Baclofen [Lioresal*] 10 mg PO TID tab 09/02/17 Rx Divalproex Sprinkle [Depakote 250 mg PO Q12HR ecc 09/02/17 Rx Sprinkle] Gabapentin [Neurontin] 400 mg PO QID cap 09/02/17 Rx Lactulose [Cephulac] 20 gm PO BID udc 09/02/17 Rx Lorazepam [Ativan] 0.5 mg PO Q4HR PRN tab 09/02/17 Rx Multivitamin [Theragran] 1 tab PO DAILY tab 09/02/17 Rx OLANZapine [ZyPREXA] 5 mg PO HS tab 09/02/17 Rx Sennosides A and B [Senna] 8.6 mg PO BID tab 09/02/17 Rx traZODone HCl [Desyrel*] 50 mg PO HS tab 09/02/17 Rx - Allergies Allergies/Adverse Reactions: Allergies Allergy/AdvReac Type Severity Reaction Status Date / Time No Known Allergies Allergy Verified 08/22/17 17:09 Review of Systems - Review of Systems Constitutional: Report: No Significant Eyes: Report: No Significant ENT: Report: No Significant Respiratory: Report: No Significant Cardiovascular: Report: No Significant Gastrointestinal: Report: No Significant Genitourinary: Report: No Significant Musculoskeletal: Report: No Significant Skin: Report: No Significant Neurological: Report: No Significant Physical Exam - Physical Exam HEENT: Report: Ears Nose Throat within normal limits Neck: Report: Within normal limits Cardiovascular Systems: Report: Regular, Rate and Rhythm Respiratory: Report: Breath Sounds are within normal limits Abdomen: Report: Non-tender to palpation Back: Report: Inspection of back is within normal limits. Extremities: Report: Non-tender to palpation., Other (Non ambulatory) Skin: Report: Color of skin is within normal limits Neuro/Psych: Report: Disoriented to name time or place - Assessment Assessment: Patient is awake , alert, calnm, in no acute distress. Dx: Psychosis, HTN, non ambulatory - Plan Plan: Patient is under psychiatric care, and continue with SNF meds. Will continue to monitor.
[2018-02-04] MEDS: Multivitamin Tab PO SCH (08:40)
[2018-02-04] MEDS: Lactulose 10 Gm/15 mL 30mL UDC PO SCH ×2 (08:40→16:19)
--- NOTE | 2018-02-04 15:01 | Psychosocial Evaluation ---
DATE OF SERVICE: 02/04/2018 IDENTIFYING DATA: The patient is a 67-year-old male patient of [facility] in [place]. Information obtained by directly interviewing the patient as well as reviewing the admission papers and they are reliable. JUSTIFICATION OF HOSPITALIZATION: The patient is admitted on a voluntary basis in view of his agitation and psychosis. CHIEF COMPLAINT: "I am okay, leave me alone." HISTORY OF PRESENT ILLNESS: This is the second psychiatric hospitalization for this patient who was hospitalized under my care in 08/2017. The patient has been diagnosed to have psychosis and has been maintained on Zyprexa prior to being hospitalized and on the day of the hospitalization the patient has been getting easily irritable, angry and getting agitated. The patient has been stating that he does not need to give any information. The patient has been on Zyprexa, Depakote and trazodone. The patient is reported to be compliant with the medication. Sleep and appetite prior to the hospitalization are reported to be poor. PAST PSYCHIATRIC HISTORY: Please refer to the above. MEDICAL HISTORY AND PHYSICAL EXAMINATION: Requested to be done by Dr. Mukesh Osman. SUBSTANCE ABUSE HISTORY: None. PHYSICAL OR SEXUAL ABUSE HISTORY: None. LEGAL PROBLEMS: None at this time. STRENGTH AND ASSETS: The patient is motivated. MENTAL STATUS EXAMINATION: The patient is a 67-year-old, looking his stated age, wheelchair bound. Mood is noted to be irritable. Affect is constricted and the patient is very labile. During the interview, the patient has been getting easily frustrated and getting angry. The patient's coping skills are noted to be very poor. The patient has paranoia, but denies any command hallucinations. No visual hallucinations are reported. The patient is alert and is aware that he is in the hospital, but short and long-term memory appeared to be poor at this time. The patient's insight and judgment are also noted very much impaired. Impulse control seems to be limited. DIAGNOSTIC IMPRESSION: AXIS I: 1A. Psychotic disorder, not otherwise specified. 1B. Dementia and behavioral change, secondary trait. IMMEDIATE TREATMENT PLAN: The patient is going to be continued with the current medications and is going to be encouraged to verbalize the concerns rather than to act out. Once stabilized, the patient is going to be discharged to [facility] to be followed up on an outpatient basis. ESTIMATED LENGTH OF STAY: Three to five days. DISCHARGE CRITERIA: When the patient is no longer a threat to self or others and be able to cope up with the stress. [facility]# [id number]
--- NOTE | 2018-02-05 09:00 | General Progress Note ---
Subjective - Review of Systems Service Date: 02/05/18 Subjective: I need get out of this place. Objective - Results Result Diagrams: 02/03/18 15:59 02/03/18 15:59 Recent Labs: Laboratory Last Values WBC 11.4 Th/cmm (4.8-10.8) H 02/03/18 15:59 RBC 4.50 Mil/cmm (3.80-5.80) 02/03/18 15:59 Hgb 12.3 gm/dL (12-16) 02/03/18 15:59 Hct 36.7 % (41.0-60) L 02/03/18 15:59 MCV 81.5 fl (80-99) 02/03/18 15:59 MCH 27.2 pg (27.0-31.0) 02/03/18 15:59 MCHC Differential 33.4 pg (28.0-36.0) 02/03/18 15:59 RDW 16.2 % (11.5-20.0) 02/03/18 15:59 Plt Count 456 Th/cmm (150-400) H 02/03/18 15:59 MPV 7.6 fl 02/03/18 15:59 Neutrophils % 71.3 % (40.0-80.0) 02/03/18 15:59 Lymphocytes % 19.1 % (20.0-50.0) L 02/03/18 15:59 Monocytes % 5.8 % (2.0-10.0) 02/03/18 15:59 Eosinophils % 3.6 % (0.0-5.0) 02/03/18 15:59 Basophils % 0.2 % (0.0-2.0) 02/03/18 15:59 Sodium 135 mEq/L (136-145) L 02/03/18 15:59 Potassium 3.8 mEq/L (3.5-5.1) 02/03/18 15:59 Chloride 102 mEq/L (98-107) 02/03/18 15:59 Carbon Dioxide 28.0 mEq/L (21.0-31.0) 02/03/18 15:59 Anion Gap 8.8 (7.0-16.0) 02/03/18 15:59 BUN 21 mg/dL (7-25) 02/03/18 15:59 Creatinine 1.0 mg/dL (0.7-1.3) 02/03/18 15:59 Est GFR ( Amer) > 60.0 ml/min (>90) 02/03/18 15:59 Est GFR (Non-Af Amer) > 60.0 ml/min 02/03/18 15:59 BUN/Creatinine Ratio 21.0 02/03/18 15:59 Glucose 90 mg/dL (70-105) 02/03/18 15:59 Hemoglobin A1c % 4.8 % (4.0-6.0) 02/03/18 15:59 Calcium 9.6 mg/dL (8.6-10.3) 02/03/18 15:59 Total Bilirubin 0.3 mg/dL (0.3-1.0) 02/03/18 15:59 AST 24 U/L (13-39) 02/03/18 15:59 ALT 15 U/L (7-52) 02/03/18 15:59 Alkaline Phosphatase 62 U/L (34-104) 02/03/18 15:59 Total Protein 8.0 gm/dL (6.0-8.3) 02/03/18 15:59 Albumin 4.0 gm/dL (4.2-5.5) L 02/03/18 15:59 Globulin 4.0 gm/dL 02/03/18 15:59 Albumin/Globulin Ratio 1.0 (1.0-1.8) 02/03/18 15:59 Triglycerides 127 mg/dL (<150) 02/03/18 15:59 Cholesterol 141 mg/dL (<200) 02/03/18 15:59 LDL Cholesterol Direct 77 mg/dL (75-193) 02/03/18 15:59 HDL Cholesterol 46 mg/dL (23-92) 02/03/18 15:59 TSH 2.67 uIU/ml (0.34-5.60) 02/03/18 15:59 Salicylates < 25.0 mg/L (30.0-100.0) L 02/03/18 15:59 Acetaminophen < 10.0 ug/mL (10.0-30.0) L 02/03/18 15:59 Ethyl Alcohol < 10 mg/dL (0-10) 02/03/18 15:59 - Physical Exam Vitals and I&O: Vital Signs Temp 97.8 F 02/05/18 06:01 Pulse 76 02/05/18 06:01 Resp 19 02/05/18 06:01 BP 127/66 02/05/18 06:01 Pulse Ox 98 02/05/18 06:01 Intake & Output 02/04/18 02/05/18 02/05/18 18:59 06:59 18:59 Intake Total 1200 Balance 1200 Intake: Oral 1200 Other: # Voids 3 # Bowel Movements 1 Stool Characteristics Soft Active Medications: Current Medications Acetaminophen (Tylenol) 650 mg PO Q4HR PRN PRN Reason: Mild Pain / Temp above 100 Stop: 04/04/18 17:07 Al Hydrox/Mg Hydrox/Simethicone (Maalox) 30 ml PO Q4HR PRN PRN Reason: GI DISTRESS Stop: 04/04/18 17:07 Ascorbic Acid (Vitamin C) 500 mg PO DAILY [facility] Stop: 04/05/18 08:59 Last Admin: 02/04/18 08:40 Dose: 500 mg Baclofen (Lioresal) 10 mg PO TID SEVERO Stop: 04/04/18 20:59 Last Admin: 02/04/18 21:51 Dose: 10 mg Divalproex Sodium (Depakote Sprinkle) 250 mg PO Q12HR SEVERO PRN Reason: Protocol Stop: 04/04/18 20:59 Last Admin: 02/04/18 21:51 Dose: 250 mg Gabapentin (Neurontin) 400 mg PO QID [facility] Stop: 04/04/18 20:59 Last Admin: 02/04/18 21:51 Dose: 400 mg Lactulose (Cephulac) 20 gm PO BID SEVERO Stop: 04/05/18 08:59 Last Admin: 02/04/18 16:19 Dose: 20 gm Lorazepam (Ativan) 0.5 mg PO Q4HR PRN; Protocol PRN Reason: Agitation Stop: 03/05/18 17:07 Magnesium Hydroxide (Milk Of Magnesia) 30 ml PO HS PRN PRN Reason: Constipation Multivitamins/Vitamin C (Theragran) 1 tab PO DAILY [facility] Stop: 04/05/18 08:59 Last Admin: 02/04/18 08:40 Dose: 1 tab Olanzapine (Zyprexa) 5 mg PO HS SEVERO PRN Reason: Protocol Stop: 04/04/18 20:59 Last Admin: 02/04/18 21:52 Dose: 5 mg Senna (Senna) 8.6 mg PO BID SEVERO Stop: 04/05/18 08:59 Last Admin: 02/04/18 16:20 Dose: 8.6 mg Trazodone HCl (Desyrel) 50 mg PO HS SEVERO PRN Reason: Protocol Stop: 04/04/18 20:59 Last Admin: 02/04/18 21:51 Dose: 50 mg Zolpidem Tartrate (Ambien) 5 mg PO HS PRN PRN Reason: Insomnia Stop: 04/04/18 17:07 General: Alert, Other (Confused, not oriented) HEENT: Atraumatic Neck: Supple Cardiovascular: Regular rate Lungs: Clear to auscultation Abdomen: Bowel sounds Extremities: Other (No edema) Neurological: Other (Non ambulatory) Skin: Other (Warm and dry) Psych/Mental Status: Other (Confused, not oriented) Assessment/Plan - Assessment Assessment: Patient is awake , alert, calnm, in no acute distress. Dx: Psychosis, HTN, non ambulatory. - Plan Plan: Patient is under psychiatric care, and continue with SNF meds. Will continue to monitor.
[2018-02-05] MEDS: Lactulose 10 Gm/15 mL 30mL UDC PO SCH ×2 (09:18→18:08)
[2018-02-05] MEDS: Multivitamin Tab PO SCH (09:19)
--- NOTE | 2018-02-05 18:00 | Consultation ---
DATE OF CONSULTATION: 02/05/2018 REQUESTING PHYSICIAN: Judith Brooks M.D. TYPE OF CONSULTATION: Psychology. HISTORY OF PRESENT ILLNESS: The following is by review of the medical record and by patient's self report. According to record review, the patient is a 67-year-old male who is being admitted due to increased agitation and psychosis. The patient is a resident of [facility] in [place]. The patient was seen previously in [facility] in August of 2017. The patient is somewhat guarded, but was able to state that he has no suicidal ideation. The patient presents as irritable and is easily agitated by the clinical interview questions. The patient was unable to contract for safety at this time. PAST MEDICAL HISTORY: Please see history and physical by Dr. Osman. PSYCHIATRIC HISTORY: The patient has had a previous hospitalization at [facility] and is under the care of a psychiatrist at his facility. SUBSTANCE ABUSE HISTORY: None. MEDICATIONS: Please see medication reconciliation. ALLERGIES: No known drug allergies. PSYCHOSOCIAL HISTORY: The patient is a resident of [facility]. The patient is retired. The patient did not respond to questions about christian affiliation or marital status or family relationships. MENTAL STATUS EXAMINATION: The patient appears to be his stated age. The patient's attitude is guarded. Eye contact is fair to poor. Mood is irritable. Affect is constricted and animated. Thought process shows to be concrete. The patient denied any auditory or visual hallucinations. The patient presents with suspiciousness and some paranoid ideation. The patient's behavior is easily frustrated and agitated. Impulse control is poor. Concentration is poor. The patient did not sustain focus or attention on the clinical questions. Sensorium is alert and oriented to person and place, in general, but not date or time. The patient did not participate in the memory evaluation. Immediate memory seems to be intact but short term and long-term memory need further evaluation, but seem to be somewhat impaired. The patient did participate in the interpretation of proverbs. Insight is poor. Judgment is compromised. DIAGNOSTIC IMPRESSION: AXIS I: 1. Psychotic disorder, not otherwise specified. 2. Dementia with behavioral disturbance. AXIS II: Deferred. AXIS III: Please see history and physical. PLAN: The patient has been seen by Dr. Brooks for psychiatric evaluation and for the management of the patient's psychotropic medications. We will provide milieu therapy as well as individual therapy including supportive therapy. We will provide de-escalation as well as coping strategies for phase of life issues. We will provide motivational enhancement for the patient to become compliant and stay compliant with all aspects of his care and treatment plan. We will provide stress management to increase the patient's frustration tolerance and coping skills as well. Thank you, Dr. Brooks for this consult and the opportunity to participate with you in this patient's care. JOB# [id number] [email or web address]
[2018-02-05] MEDS: Therahoney Gel 42.5gm Tube TP SCH (20:52)
--- NOTE | 2018-02-05 22:51 | Progress Notes ---
DATE: 02/05/2018 SUBJECTIVE: Staff was spoken to. The patient is interviewed. Mood is noted to be irritable. Affect is constricted. Insight and judgment at this time are noted to be very much impaired. Impulse control is noted to be limited. The patient has been having difficult time to cope with the stress. The patient is currently on 50 mg twice a day of the Depakote and is also on olanzapine. The patient has been able to tolerate the medications. No side effects to the medications are noted. ASSESSMENT: The patient is still impulsive and psychotic. PLAN: To continue the patient with the supportive therapy and followup. JOB# [id number]
[2018-02-06] MEDS: Multivitamin Tab PO SCH (08:46)
--- NOTE | 2018-02-06 08:46 | General Progress Note ---
Subjective - Review of Systems Service Date: 02/06/18 Subjective: I need get out of this place. Objective - Results Result Diagrams: 02/03/18 15:59 02/03/18 15:59 Recent Labs: Laboratory Last Values WBC 11.4 Th/cmm (4.8-10.8) H 02/03/18 15:59 RBC 4.50 Mil/cmm (3.80-5.80) 02/03/18 15:59 Hgb 12.3 gm/dL (12-16) 02/03/18 15:59 Hct 36.7 % (41.0-60) L 02/03/18 15:59 MCV 81.5 fl (80-99) 02/03/18 15:59 MCH 27.2 pg (27.0-31.0) 02/03/18 15:59 MCHC Differential 33.4 pg (28.0-36.0) 02/03/18 15:59 RDW 16.2 % (11.5-20.0) 02/03/18 15:59 Plt Count 456 Th/cmm (150-400) H 02/03/18 15:59 MPV 7.6 fl 02/03/18 15:59 Neutrophils % 71.3 % (40.0-80.0) 02/03/18 15:59 Lymphocytes % 19.1 % (20.0-50.0) L 02/03/18 15:59 Monocytes % 5.8 % (2.0-10.0) 02/03/18 15:59 Eosinophils % 3.6 % (0.0-5.0) 02/03/18 15:59 Basophils % 0.2 % (0.0-2.0) 02/03/18 15:59 Sodium 135 mEq/L (136-145) L 02/03/18 15:59 Potassium 3.8 mEq/L (3.5-5.1) 02/03/18 15:59 Chloride 102 mEq/L (98-107) 02/03/18 15:59 Carbon Dioxide 28.0 mEq/L (21.0-31.0) 02/03/18 15:59 Anion Gap 8.8 (7.0-16.0) 02/03/18 15:59 BUN 21 mg/dL (7-25) 02/03/18 15:59 Creatinine 1.0 mg/dL (0.7-1.3) 02/03/18 15:59 Est GFR ( Amer) > 60.0 ml/min (>90) 02/03/18 15:59 Est GFR (Non-Af Amer) > 60.0 ml/min 02/03/18 15:59 BUN/Creatinine Ratio 21.0 02/03/18 15:59 Glucose 90 mg/dL (70-105) 02/03/18 15:59 Hemoglobin A1c % 4.8 % (4.0-6.0) 02/03/18 15:59 Calcium 9.6 mg/dL (8.6-10.3) 02/03/18 15:59 Total Bilirubin 0.3 mg/dL (0.3-1.0) 02/03/18 15:59 AST 24 U/L (13-39) 02/03/18 15:59 ALT 15 U/L (7-52) 02/03/18 15:59 Alkaline Phosphatase 62 U/L (34-104) 02/03/18 15:59 Total Protein 8.0 gm/dL (6.0-8.3) 02/03/18 15:59 Albumin 4.0 gm/dL (4.2-5.5) L 02/03/18 15:59 Globulin 4.0 gm/dL 02/03/18 15:59 Albumin/Globulin Ratio 1.0 (1.0-1.8) 02/03/18 15:59 Triglycerides 127 mg/dL (<150) 02/03/18 15:59 Cholesterol 141 mg/dL (<200) 02/03/18 15:59 LDL Cholesterol Direct 77 mg/dL (75-193) 02/03/18 15:59 HDL Cholesterol 46 mg/dL (23-92) 02/03/18 15:59 TSH 2.67 uIU/ml (0.34-5.60) 02/03/18 15:59 Salicylates < 25.0 mg/L (30.0-100.0) L 02/03/18 15:59 Acetaminophen < 10.0 ug/mL (10.0-30.0) L 02/03/18 15:59 Ethyl Alcohol < 10 mg/dL (0-10) 03/06/18 15:59 - Physical Exam Vitals and I&O: Vital Signs Temp 98.6 F 02/06/18 06:11 Pulse 78 02/06/18 06:11 Resp 18 02/06/18 06:11 BP 128/65 02/06/18 06:11 Pulse Ox 98 02/06/18 06:11 Intake & Output 02/05/18 02/06/18 02/06/18 18:59 06:59 18:59 Intake Total 1000 450 Balance 1000 450 Intake: Oral 1000 450 Other: # Voids 4 2 # Bowel Movements 3 2 Active Medications: Current Medications Acetaminophen (Tylenol) 650 mg PO Q4HR PRN PRN Reason: Mild Pain / Temp above 100 Stop: 04/04/18 17:07 Al Hydrox/Mg Hydrox/Simethicone (Maalox) 30 ml PO Q4HR PRN PRN Reason: GI DISTRESS Stop: 04/04/18 17:07 Ascorbic Acid (Vitamin C) 500 mg PO DAILY [facility] Stop: 04/05/18 08:59 Last Admin: 02/05/18 09:19 Dose: 500 mg Baclofen (Lioresal) 10 mg PO TID [facility] Stop: 04/04/18 20:59 Last Admin: 02/05/18 21:00 Dose: Not Given Divalproex Sodium (Depakote Sprinkle) 250 mg PO Q12HR [facility] PRN Reason: Protocol Stop: 04/04/18 20:59 Last Admin: 02/05/18 21:00 Dose: 125 mg Gabapentin (Neurontin) 400 mg PO QID [facility] Stop: 04/04/18 20:59 Last Admin: 02/05/18 21:00 Dose: 400 mg Lactulose (Cephulac) 20 gm PO BID [facility] Stop: 04/05/18 08:59 Last Admin: 02/05/18 18:08 Dose: 20 gm Lorazepam (Ativan) 0.5 mg PO Q4HR PRN; Protocol PRN Reason: Agitation Stop: 03/05/18 17:07 Last Admin: 02/05/18 09:19 Dose: 0.5 mg Magnesium Hydroxide (Milk Of Magnesia) 30 ml PO HS PRN PRN Reason: Constipation Multivitamins/Vitamin C (Theragran) 1 tab PO DAILY [facility] Stop: 04/05/18 08:59 Last Admin: 02/05/18 09:19 Dose: 1 tab Olanzapine (Zyprexa) 5 mg PO HS [facility] PRN Reason: Protocol Stop: 04/04/18 20:59 Last Admin: 02/05/18 21:00 Dose: Not Given Senna (Senna) 8.6 mg PO BID [facility] Stop: 04/05/18 08:59 Last Admin: 02/05/18 18:07 Dose: 8.6 mg Trazodone HCl (Desyrel) 50 mg PO HS [facility] PRN Reason: Protocol Stop: 04/04/18 20:59 Last Admin: 02/05/18 21:00 Dose: Not Given Wound Care/Dressing Products (Therahoney) 1 appl TP DAILY [facility] Stop: 04/06/18 20:14 Last Admin: 02/05/18 20:52 Dose: Not Given Zolpidem Tartrate (Ambien) 5 mg PO HS PRN PRN Reason: Insomnia Stop: 04/04/18 17:07 General: Alert, Other (Confused, not oriented) HEENT: Atraumatic Neck: Supple Cardiovascular: Regular rate Lungs: Clear to auscultation Abdomen: Bowel sounds Extremities: Other (No edema) Neurological: Other (Non ambulatory) Skin: Other (Warm and dry) Psych/Mental Status: Other (Confused, not oriented) Assessment/Plan - Assessment Assessment: Patient is awake , alert, calm, in no acute distress. Dx: Psychosis, HTN, non ambulatory. - Plan Plan: Patient is under psychiatric care, and continue with SNF meds. Will continue to monitor.
[2018-02-06] MEDS: Lactulose 10 Gm/15 mL 30mL UDC PO SCH ×2 (08:47→16:18)
[2018-02-06] MEDS: Therahoney Gel 42.5gm Tube TP SCH (10:24)
--- NOTE | 2018-02-06 17:47 | Progress Notes ---
DATE: 02/06/2018 PSYCHIATRIC PROGRESS NOTE SUBJECTIVE: Staff was spoken to. The patient is interviewed. Mood is noted to be anxious. The patient's coping skills are noted to be still poor. The patient has been getting easily agitated. The patient's insight and judgment are noted to be impaired still. Coping skills are noted to be poor. The patient is currently on olanzapine 5 mg at bedtime and Depakote 250 mg twice a day and has been able to tolerate the medication. The patient is still fixated on people trying to bother him and he is not willing to contract for safety. ASSESSMENT: The patient is still psychotic and impulsive. PLAN: To continue the patient with the supportive therapy and followup. [facility]# [id number]
[2018-02-07] MEDS: Lactulose 10 Gm/15 mL 30mL UDC PO SCH ×2 (08:23→16:50)
[2018-02-07] MEDS: Multivitamin Tab PO SCH (08:23)
[2018-02-07] MEDS: Therahoney Gel 42.5gm Tube TP SCH (10:00)
--- NOTE | 2018-02-07 10:50 | General Progress Note ---
Subjective - Review of Systems Service Date: 02/07/18 Subjective: I need get out of this place. Objective - Results Result Diagrams: 02/03/18 15:59 02/03/18 15:59 Recent Labs: Laboratory Last Values WBC 11.4 Th/cmm (4.8-10.8) H 02/03/18 15:59 RBC 4.50 Mil/cmm (3.80-5.80) 02/03/18 15:59 Hgb 12.3 gm/dL (12-16) 02/03/18 15:59 Hct 36.7 % (41.0-60) L 02/03/18 15:59 MCV 81.5 fl (80-99) 02/03/18 15:59 MCH 27.2 pg (27.0-31.0) 02/03/18 15:59 MCHC Differential 33.4 pg (28.0-36.0) 02/03/18 15:59 RDW 16.2 % (11.5-20.0) 02/03/18 15:59 Plt Count 456 Th/cmm (150-400) H 02/03/18 15:59 MPV 7.6 fl 02/03/18 15:59 Neutrophils % 71.3 % (40.0-80.0) 02/03/18 15:59 Lymphocytes % 19.1 % (20.0-50.0) L 02/03/18 15:59 Monocytes % 5.8 % (2.0-10.0) 02/03/18 15:59 Eosinophils % 3.6 % (0.0-5.0) 02/03/18 15:59 Basophils % 0.2 % (0.0-2.0) 02/03/18 15:59 Sodium 135 mEq/L (136-145) L 02/03/18 15:59 Potassium 3.8 mEq/L (3.5-5.1) 02/03/18 15:59 Chloride 102 mEq/L (98-107) 02/03/18 15:59 Carbon Dioxide 28.0 mEq/L (21.0-31.0) 02/03/18 15:59 Anion Gap 8.8 (7.0-16.0) 02/03/18 15:59 BUN 21 mg/dL (7-25) 02/03/18 15:59 Creatinine 1.0 mg/dL (0.7-1.3) 02/03/18 15:59 Est GFR ( Amer) > 60.0 ml/min (>90) 02/03/18 15:59 Est GFR (Non-Af Amer) > 60.0 ml/min 02/03/18 15:59 BUN/Creatinine Ratio 21.0 02/03/18 15:59 Glucose 90 mg/dL (70-105) 02/03/18 15:59 Hemoglobin A1c % 4.8 % (4.0-6.0) 02/03/18 15:59 Calcium 9.6 mg/dL (8.6-10.3) 02/03/18 15:59 Total Bilirubin 0.3 mg/dL (0.3-1.0) 02/03/18 15:59 AST 24 U/L (13-39) 02/03/18 15:59 ALT 15 U/L (7-52) 02/03/18 15:59 Alkaline Phosphatase 62 U/L (34-104) 02/03/18 15:59 Total Protein 8.0 gm/dL (6.0-8.3) 02/03/18 15:59 Albumin 4.0 gm/dL (4.2-5.5) L 02/03/18 15:59 Globulin 4.0 gm/dL 02/03/18 15:59 Albumin/Globulin Ratio 1.0 (1.0-1.8) 02/03/18 15:59 Triglycerides 127 mg/dL (<150) 02/03/18 15:59 Cholesterol 141 mg/dL (<200) 02/03/18 15:59 LDL Cholesterol Direct 77 mg/dL (75-193) 02/03/18 15:59 HDL Cholesterol 46 mg/dL (23-92) 02/03/18 15:59 TSH 2.67 uIU/ml (0.34-5.60) 02/03/18 15:59 Salicylates < 25.0 mg/L (30.0-100.0) L 02/03/18 15:59 Acetaminophen < 10.0 ug/mL (10.0-30.0) L 02/03/18 15:59 Ethyl Alcohol < 10 mg/dL (0-10) 03/06/18 15:59 RPR NONREACTIVE (NONREACTIVE) 02/03/18 15:59 - Physical Exam Vitals and I&O: Vital Signs Temp 97.6 F 02/07/18 06:00 Pulse 99 02/07/18 06:00 Resp 19 02/07/18 06:00 BP 98/71 02/07/18 06:00 Pulse Ox 100 02/07/18 06:00 Intake & Output 02/06/18 02/07/18 02/07/18 18:59 06:59 18:59 Intake Total 1200 490 Output Total 1 Balance 1200 489 Intake: Oral 1200 490 Output: Stool 1 Other: # Voids 2 # Bowel Movements 2 Active Medications: Current Medications Acetaminophen (Tylenol) 650 mg PO Q4HR PRN PRN Reason: Mild Pain / Temp above 100 Stop: 04/04/18 17:07 Al Hydrox/Mg Hydrox/Simethicone (Maalox) 30 ml PO Q4HR PRN PRN Reason: GI DISTRESS Stop: 04/04/18 17:07 Ascorbic Acid (Vitamin C) 500 mg PO DAILY [facility] Stop: 04/05/18 08:59 Last Admin: 02/07/18 08:23 Dose: 500 mg Baclofen (Lioresal) 10 mg PO TID [facility] Stop: 04/04/18 20:59 Last Admin: 02/07/18 08:23 Dose: 10 mg Divalproex Sodium (Depakote Sprinkle) 250 mg PO Q12HR [facility] PRN Reason: Protocol Stop: 04/04/18 20:59 Last Admin: 02/07/18 08:23 Dose: 250 mg Gabapentin (Neurontin) 400 mg PO QID [facility] Stop: 04/04/18 20:59 Last Admin: 02/07/18 08:23 Dose: 400 mg Lactulose (Cephulac) 20 gm PO BID [facility] Stop: 04/05/18 08:59 Last Admin: 02/07/18 08:23 Dose: 20 gm Lorazepam (Ativan) 0.5 mg PO Q4HR PRN; Protocol PRN Reason: Agitation Stop: 03/05/18 17:07 Last Admin: 02/05/18 09:19 Dose: 0.5 mg Magnesium Hydroxide (Milk Of Magnesia) 30 ml PO HS PRN PRN Reason: Constipation Multivitamins/Vitamin C (Theragran) 1 tab PO DAILY [facility] Stop: 04/05/18 08:59 Last Admin: 02/07/18 08:23 Dose: 1 tab Mupirocin (Bactroban Oint) 1 appl NS BID [facility] Stop: 02/11/18 09:01 Last Admin: 02/06/18 16:23 Dose: 1 appl Olanzapine (Zyprexa) 5 mg PO HS [facility] PRN Reason: Protocol Stop: 04/04/18 20:59 Last Admin: 02/06/18 20:56 Dose: 5 mg Senna (Senna) 8.6 mg PO BID [facility] Stop: 04/05/18 08:59 Last Admin: 02/07/18 08:23 Dose: 8.6 mg Trazodone HCl (Desyrel) 50 mg PO HS [facility] PRN Reason: Protocol Stop: 04/04/18 20:59 Last Admin: 02/06/18 20:56 Dose: 50 mg Wound Care/Dressing Products (Therahoney) 1 appl TP DAILY [facility] Stop: 04/06/18 20:14 Last Admin: 02/06/18 10:24 Dose: Not Given Zolpidem Tartrate (Ambien) 5 mg PO HS PRN PRN Reason: Insomnia Stop: 04/04/18 17:07 General: Alert, Other (Confused, not oriented) HEENT: Atraumatic Neck: Supple Cardiovascular: Regular rate Lungs: Clear to auscultation Abdomen: Bowel sounds Extremities: Other (No edema) Neurological: Other (Non ambulatory) Skin: Other (Warm and dry) Psych/Mental Status: Other (Confused, not oriented) Assessment/Plan - Assessment Assessment: Patient is awake , alert, calm, in no acute distress. Dx: Psychosis, HTN, non ambulatory. - Plan Plan: Patient is under psychiatric care, and continue with SNF meds. Will continue to monitor. Nutritional Asmnt/Malnutr-PDOC - Dietary Evaluation Malnutrition Findings (Please click <Entered> for more info): Nutritional Asmnt/Malnutrition Start: 02/06/18 15: 18 Text: Status: Complete Freq: Document 02/06/18 15:18 [email or web address] (Rec: 02/06/18 15:28 [email or web address]) Nutritional Asmnt/Malnutrition Patient General Information Nutritional Screening Moderate Risk Consult Diagnosis psychosis Pertinent Medical Hx/Surgical Hx HTN, psychosis, non ambulatory Subjective Information Pt seen in dinning room. Per EMR, PO intake 100%. Consult received for wound, amada score 12. Current Diet Order/ Nutrition Support [facility] Pertinent Medications vit C, cephulac, theragran, senna Pertinent Labs 02/03 Na 135, Alb 4.0, Glucose 90, A1c 4.8 Nutritional Hx/Data Height 1.73 m Height (Calculated Centimeters) 172.7 Current Weight (lbs) 80.286 kg Weight (Calculated Kilograms) 80.3 Weight (Calculated Grams) 50650.8 [place] Body Weight 154 Body Mass Index (BMI) 26.9 Weight Status Overweight GI Symptoms GI Symptoms None Last BM 02/06 x 2 Difficult in: None Skin Integrity/Comment: wound care note: Left distal medial lower extremity, left lateral to malleolus wound Estimated Nutritional Goals BEE in Kcals: Adj wt of IBW Calories/Kcals/Kg 25-30 Kcals Calculated 8346-1542 Protein: Adj wt of IBW Protein g/k-1.2 Protein Calculated 72-86 Fluid: ml 1800-2160ml (1ml/ckal) Nutritional Problem 1. Problem Problem increased nutirtion needs ( protein) Etiology increased metabolic demand for wound healing Signs/Symptoms: present wound Malnutrition Alert Protein-Calorie Malnutrition N/A Is there a minimum of two criteria No selected? Query Text:Check all the applicable criteria. A minimum of two criteria are recommended for diagnosis of either severe or non-severe malnutrition. Intervention/Recommendation Comments 1. Continue with [facility] soft [facility] diet as ordered. 2. Monitor PO intake, wt, labs and skin integrity 3. F/U as low risk in 7 days, 02/13 Expected Outcomes/Goals Expected Outcomes/Goals 1. PO intake to meet at least 75% of nutritional needs. 2. Wt stability, skin to remain intact, labs to approach WNL.
--- NOTE | 2018-02-07 16:16 | Progress Notes ---
DATE: 02/07/2018 PSYCHIATRIC PROGRESS NOTE SUBJECTIVE: Staff was spoken to. The patient is interviewed. Mood is noted to be irritable. Affect is constricted. The patient is screaming and yelling today. The patient has no insight into his illness. Coping skills are noted to be very poor. The patient is currently on Depakote and Zyprexa and has been able to tolerate the medications. No side effects to medications are noted. ASSESSMENT: The patient is still impulsive. PLAN: To continue the patient with supportive therapy and encouraged the patient to verbalize the concerns rather than to act out. JOB# [id number]
[2018-02-08] MEDS: Multivitamin Tab PO SCH (08:32)
[2018-02-08] MEDS: Lactulose 10 Gm/15 mL 30mL UDC PO SCH ×2 (08:32→16:45)
[2018-02-08] MEDS: Therahoney Gel 42.5gm Tube TP SCH (10:30)
--- NOTE | 2018-02-08 17:20 | General Progress Note ---
Subjective - Review of Systems Service Date: 02/08/18 Subjective: I am OK Objective - Results Result Diagrams: 02/03/18 15:59 02/03/18 15:59 Recent Labs: Laboratory Last Values WBC 11.4 Th/cmm (4.8-10.8) H 02/03/18 15:59 RBC 4.50 Mil/cmm (3.80-5.80) 02/03/18 15:59 Hgb 12.3 gm/dL (12-16) 02/03/18 15:59 Hct 36.7 % (41.0-60) L 02/03/18 15:59 MCV 81.5 fl (80-99) 02/03/18 15:59 MCH 27.2 pg (27.0-31.0) 02/03/18 15:59 MCHC Differential 33.4 pg (28.0-36.0) 02/03/18 15:59 RDW 16.2 % (11.5-20.0) 02/03/18 15:59 Plt Count 456 Th/cmm (150-400) H 02/03/18 15:59 MPV 7.6 fl 02/03/18 15:59 Neutrophils % 71.3 % (40.0-80.0) 02/03/18 15:59 Lymphocytes % 19.1 % (20.0-50.0) L 02/03/18 15:59 Monocytes % 5.8 % (2.0-10.0) 02/03/18 15:59 Eosinophils % 3.6 % (0.0-5.0) 02/03/18 15:59 Basophils % 0.2 % (0.0-2.0) 02/03/18 15:59 Sodium 135 mEq/L (136-145) L 02/03/18 15:59 Potassium 3.8 mEq/L (3.5-5.1) 02/03/18 15:59 Chloride 102 mEq/L (98-107) 02/03/18 15:59 Carbon Dioxide 28.0 mEq/L (21.0-31.0) 02/03/18 15:59 Anion Gap 8.8 (7.0-16.0) 02/03/18 15:59 BUN 21 mg/dL (7-25) 02/03/18 15:59 Creatinine 1.0 mg/dL (0.7-1.3) 02/03/18 15:59 Est GFR ( Amer) > 60.0 ml/min (>90) 02/03/18 15:59 Est GFR (Non-Af Amer) > 60.0 ml/min 02/03/18 15:59 BUN/Creatinine Ratio 21.0 02/03/18 15:59 Glucose 90 mg/dL (70-105) 02/03/18 15:59 Hemoglobin A1c % 4.8 % (4.0-6.0) 02/03/18 15:59 Calcium 9.6 mg/dL (8.6-10.3) 02/03/18 15:59 Total Bilirubin 0.3 mg/dL (0.3-1.0) 02/03/18 15:59 AST 24 U/L (13-39) 02/03/18 15:59 ALT 15 U/L (7-52) 02/03/18 15:59 Alkaline Phosphatase 62 U/L (34-104) 02/03/18 15:59 Total Protein 8.0 gm/dL (6.0-8.3) 02/03/18 15:59 Albumin 4.0 gm/dL (4.2-5.5) L 02/03/18 15:59 Globulin 4.0 gm/dL 02/03/18 15:59 Albumin/Globulin Ratio 1.0 (1.0-1.8) 02/03/18 15:59 Triglycerides 127 mg/dL (<150) 02/03/18 15:59 Cholesterol 141 mg/dL (<200) 02/03/18 15:59 LDL Cholesterol Direct 77 mg/dL (75-193) 02/03/18 15:59 HDL Cholesterol 46 mg/dL (23-92) 02/03/18 15:59 TSH 2.67 uIU/ml (0.34-5.60) 02/03/18 15:59 Salicylates < 25.0 mg/L (30.0-100.0) L 02/03/18 15:59 Acetaminophen < 10.0 ug/mL (10.0-30.0) L 02/03/18 15:59 Ethyl Alcohol < 10 mg/dL (0-10) 02/03/18 15:59 RPR NONREACTIVE (NONREACTIVE) 02/03/18 15:59 - Physical Exam Vitals and I&O: Vital Signs Temp 98.9 F 02/08/18 16:12 Pulse 87 02/08/18 16:12 Resp 16 02/08/18 16:12 BP 103/58 02/08/18 16:12 Pulse Ox 99 02/08/18 16:12 Intake & Output 02/07/18 02/08/18 02/08/18 17:59 06:59 18:59 Intake Total Output Total Balance Intake: Oral Output: Stool Other: # Voids Stool Characteristics Active Medications: Current Medications Acetaminophen (Tylenol) 650 mg PO Q4HR PRN PRN Reason: Mild Pain / Temp above 100 Stop: 04/04/18 17:07 Last Admin: 02/08/18 08:31 Dose: 650 mg Al Hydrox/Mg Hydrox/Simethicone (Maalox) 30 ml PO Q4HR PRN PRN Reason: GI DISTRESS Stop: 04/04/18 17:07 Ascorbic Acid (Vitamin C) 500 mg PO DAILY [facility] Stop: 04/05/18 08:59 Last Admin: 02/08/18 08:32 Dose: 500 mg Baclofen (Lioresal) 10 mg PO TID [facility] Stop: 04/04/18 20:59 Last Admin: 02/08/18 13:18 Dose: 10 mg Divalproex Sodium (Depakote Sprinkle) 250 mg PO Q12HR [facility] PRN Reason: Protocol Stop: 04/04/18 20:59 Last Admin: 02/08/18 08:32 Dose: 250 mg Gabapentin (Neurontin) 400 mg PO QID [facility] Stop: 04/04/18 20:59 Last Admin: 02/08/18 16:44 Dose: 400 mg Lactulose (Cephulac) 20 gm PO BID [facility] Stop: 04/05/18 08:59 Last Admin: 02/08/18 16:45 Dose: 20 gm Lorazepam (Ativan) 0.5 mg PO Q4HR PRN; Protocol PRN Reason: Agitation Stop: 03/05/18 17:07 Last Admin: 02/05/18 09:19 Dose: 0.5 mg Magnesium Hydroxide (Milk Of Magnesia) 30 ml PO HS PRN PRN Reason: Constipation Multivitamins/Vitamin C (Theragran) 1 tab PO DAILY [facility] Stop: 04/05/18 08:59 Last Admin: 02/08/18 08:32 Dose: 1 tab Mupirocin (Bactroban Oint) 1 appl NS BID [facility] Stop: 02/11/18 09:01 Last Admin: 02/08/18 10:30 Dose: 1 appl Olanzapine (Zyprexa) 5 mg PO HS [facility] PRN Reason: Protocol Stop: 04/04/18 20:59 Last Admin: 02/07/18 21:08 Dose: 5 mg Senna (Senna) 8.6 mg PO BID [facility] Stop: 04/05/18 08:59 Last Admin: 02/08/18 16:45 Dose: 8.6 mg Trazodone HCl (Desyrel) 50 mg PO HS [facility] PRN Reason: Protocol Stop: 04/04/18 20:59 Last Admin: 02/07/18 21:08 Dose: 50 mg Wound Care/Dressing Products (Therahoney) 1 appl TP DAILY [facility] Stop: 04/06/18 20:14 Last Admin: 02/08/18 10:30 Dose: 1 appl Zolpidem Tartrate (Ambien) 5 mg PO HS PRN PRN Reason: Insomnia Stop: 04/04/18 17:07 General: Alert, Other (Confused, not oriented) HEENT: Atraumatic Neck: Supple Cardiovascular: Regular rate Lungs: Clear to auscultation Abdomen: Bowel sounds Extremities: Other (No edema) Neurological: Other (Non ambulatory) Skin: Other (There is an ulcer close to left ankle and redness around.) Psych/Mental Status: Other (Confused, not oriented) Assessment/Plan - Assessment Assessment: Patient is awake , alert, calm, in no acute distress. Dx: Cellulitis, Psychosis , HTN, non ambulatory. - Plan Plan: Patient is under psychiatric care, and continue with SNF meds. Patient is started in Bactrim. Will continue to monitor. Nutritional Asmnt/Malnutr-PDOC - Dietary Evaluation Malnutrition Findings (Please click <Entered> for more info): Nutritional Asmnt/Malnutrition Start: 02/06/18 15: 18 Text: Status: Complete Freq: Document 02/06/18 15:18 [email or web address] (Rec: 02/06/18 15:28 [email or web address]) Nutritional Asmnt/Malnutrition Patient General Information Nutritional Screening Moderate Risk Consult Diagnosis psychosis Pertinent Medical Hx/Surgical Hx HTN, psychosis, non ambulatory Subjective Information Pt seen in dinning room. Per EMR, PO intake 100%. Consult received for wound, amada score 12. Current Diet Order/ Nutrition Support [facility] Pertinent Medications vit C, cephulac, theragran, senna Pertinent Labs 3/ Na 135, Alb 4.0, Glucose 90, A1c 4.8 Nutritional Hx/Data Height 1.73 m Height (Calculated Centimeters) 172.7 Current Weight (lbs) 80.286 kg Weight (Calculated Kilograms) 80.3 Weight (Calculated Grams) 51569.8 [place] Body Weight 154 Body Mass Index (BMI) 26.9 Weight Status Overweight GI Symptoms GI Symptoms None Last BM 02/06 x 2 Difficult in: None Skin Integrity/Comment: wound care note: Left distal medial lower extremity, left lateral to malleolus wound Estimated Nutritional Goals BEE in Kcals: Adj wt of IBW Calories/Kcals/Kg 25-30 Kcals Calculated 9802-9391 Protein: Adj wt of IBW Protein g/k-1.2 Protein Calculated 72-86 Fluid: ml 1800-2160ml (1ml/ckal) Nutritional Problem 1. Problem Problem increased nutirtion needs ( protein) Etiology increased metabolic demand for wound healing Signs/Symptoms: present wound Malnutrition Alert Protein-Calorie Malnutrition N/A Is there a minimum of two criteria No selected? Query Text:Check all the applicable criteria. A minimum of two criteria are recommended for diagnosis of either severe or non-severe malnutrition. Intervention/Recommendation Comments 1. Continue with [facility] soft ground diet as ordered. 2. Monitor PO intake, wt, labs and skin integrity 3. F/U as low risk in 7 days, 02/13 Expected Outcomes/Goals Expected Outcomes/Goals 1. PO intake to meet at least 75% of nutritional needs. 2. Wt stability, skin to remain intact, labs to approach WNL.
[2018-02-08] MEDS: Sulfamethoxazole/TMP 800/160mg Tab PO SCH (17:30)
--- NOTE | 2018-02-08 23:18 | Progress Notes ---
DATE: 02/08/2018 PSYCHIATRIC PROGRESS NOTE SUBJECTIVE: Staff was spoken to. The patient is interviewed. Mood is noted to be irritable. Affect is constricted. Coping skills are noted to be very poor. Sleep and appetite are also noted to be very poor. The patient has been currently on Zyprexa and Depakote and has been able to tolerate the medications. No side effects to the medications are noted. The patient's blood work has been reviewed and WBC is noted to be 11.4 and the rest of the labs are basically within normal limits. No major intervention was needed. PLAN: The patient has been closely monitored at this time and it is decided to repeat the CBC again tomorrow and follow the patient. [facility]# [id number]
[2018-02-09 07:36] LABS: % BASOPHILS 0.1 % (0.0-2.0); % EOSINOPHILS 0.2 % (0.0-5.0); % LYMPHOCYTES 10.9 % (20.0-50.0); % MONOCYTES 7.2 % (2.0-10.0); % NEUTROPHILS 81.6 % (40.0-80.0); HEMATOCRIT 33.9 % (41.0-60); HEMOGLOBIN 11.2 gm/dL (12-16); LYMPHOCYTE ABSOLUTE 0.9 Th/cmm (1.5-3.0); MEAN CELL VOLUME 81.8 fl (80-99); MEAN PLATELET VOLUME 7.4 fl; MONOCYTE ABSOLUTE 0.6 Th/cmm (0.3-1.0); NEUTROPHILE ABSOLUTE 6.4 Th/cmm (1.8-8.0); PLATELET COUNT 271 Th/cmm (150-400); RED BLOOD COUNT 4.15 Mil/cmm (3.80-5.80); RED CELL DISTRIBUTION WIDTH 16.5 % (11.5-20.0); WHITE BLOOD COUNT 7.9 Th/cmm (4.8-10.8)
[2018-02-09 08:01] LABS: ALB/GLOB RATIO 0.9 (1.0-1.8); ALBUMIN 3.3 gm/dL (4.2-5.5); ALKALINE PHOSPHATASE 48 U/L (34-104); ANION GAP 7.4 (7.0-16.0); BILIRUBIN,TOTAL 0.3 mg/dL (0.3-1.0); BUN - UREA NITROGEN 14 mg/dL (7-25); CALCIUM SERUM 9.2 mg/dL (8.6-10.3); CARBON DIOXIDE 27.8 mEq/L (21.0-31.0); CHLORIDE 103 mEq/L (98-107); CREATININE - SERUM 0.9 mg/dL (0.7-1.3); GFR AFRICAN-AMERICAN > 60.0 ml/min (>90); GFR NON AFRICAN-AMERICAN > 60.0 ml/min; GLUCOSE 92 mg/dL (70-105); POTASSIUM SERUM 4.2 mEq/L (3.5-5.1); SGOT 17 U/L (13-39); SGPT/ALT 15 U/L (7-52); SODIUM SERUM 134 mEq/L (136-145)
--- NOTE | 2018-02-09 08:38 | General Progress Note ---
Subjective - Review of Systems Service Date: 02/09/18 Subjective: I am OK Objective - Results Result Diagrams: 02/09/18 07:20 02/09/18 07:20 Recent Labs: Laboratory Last Values WBC 7.9 Th/cmm (4.8-10.8) 02/09/18 07:20 RBC 4.15 Mil/cmm (3.80-5.80) 02/09/18 07:20 Hgb 11.2 gm/dL (12-16) L 02/09/18 07:20 Hct 33.9 % (41.0-60) L 02/09/18 07:20 MCV 81.8 fl (80-99) 02/09/18 07:20 MCH 27.0 pg (27.0-31.0) 02/09/18 07:20 MCHC Differential 33.0 pg (28.0-36.0) 02/09/18 07:20 RDW 16.5 % (11.5-20.0) 02/09/18 07:20 Plt Count 271 Th/cmm (150-400) 02/09/18 07:20 MPV 7.4 fl 02/09/18 07:20 Neutrophils % 81.6 % (40.0-80.0) H 02/09/18 07:20 Lymphocytes % 10.9 % (20.0-50.0) L 02/09/18 07:20 Monocytes % 7.2 % (2.0-10.0) 02/09/18 07:20 Eosinophils % 0.2 % (0.0-5.0) 02/09/18 07:20 Basophils % 0.1 % (0.0-2.0) 02/09/18 07:20 Sodium 134 mEq/L (136-145) L 02/09/18 07:20 Potassium 4.2 mEq/L (3.5-5.1) 02/09/18 07:20 Chloride 103 mEq/L (98-107) 02/09/18 07:20 Carbon Dioxide 27.8 mEq/L (21.0-31.0) 02/09/18 07:20 Anion Gap 7.4 (7.0-16.0) 02/09/18 07:20 BUN 14 mg/dL (7-25) 02/09/18 07:20 Creatinine 0.9 mg/dL (0.7-1.3) 02/09/18 07:20 Est GFR ( Amer) > 60.0 ml/min (>90) 02/09/18 07:20 Est GFR (Non-Af Amer) > 60.0 ml/min 02/09/18 07:20 BUN/Creatinine Ratio 15.6 02/09/18 07:20 Glucose 92 mg/dL (70-105) 02/09/18 07:20 Hemoglobin A1c % 4.8 % (4.0-6.0) 02/03/18 15:59 Calcium 9.2 mg/dL (8.6-10.3) 02/09/18 07:20 Total Bilirubin 0.3 mg/dL (0.3-1.0) 02/09/18 07:20 AST 17 U/L (13-39) 02/09/18 07:20 ALT 15 U/L (7-52) 02/09/18 07:20 Alkaline Phosphatase 48 U/L (34-104) 02/09/18 07:20 Total Protein 7.0 gm/dL (6.0-8.3) 02/09/18 07:20 Albumin 3.3 gm/dL (4.2-5.5) L 02/09/18 07:20 Globulin 3.7 gm/dL 02/09/18 07:20 Albumin/Globulin Ratio 0.9 (1.0-1.8) L 02/09/18 07:20 Triglycerides 127 mg/dL (<150) 02/03/18 15:59 Cholesterol 141 mg/dL (<200) 02/03/18 15:59 LDL Cholesterol Direct 77 mg/dL (75-193) 02/03/18 15:59 HDL Cholesterol 46 mg/dL (23-92) 02/03/18 15:59 TSH 2.67 uIU/ml (0.34-5.60) 02/03/18 15:59 Salicylates < 25.0 mg/L (30.0-100.0) L 02/03/18 15:59 Acetaminophen < 10.0 ug/mL (10.0-30.0) L 02/03/18 15:59 Ethyl Alcohol < 10 mg/dL (0-10) 02/03/18 15:59 RPR NONREACTIVE (NONREACTIVE) 02/03/18 15:59 - Physical Exam Vitals and I&O: Vital Signs Temp 98.4 F 02/09/18 06:44 Pulse 77 02/09/18 06:44 Resp 20 02/09/18 06:44 BP 113/69 02/09/18 06:44 Pulse Ox 97 02/09/18 06:44 Intake & Output 02/08/18 02/09/18 02/09/18 18:59 06:59 18:59 Intake Total 1320 Balance 1320 Intake: Oral 1320 Other: # Voids 3 Active Medications: Current Medications Acetaminophen (Tylenol) 650 mg PO Q4HR PRN PRN Reason: Mild Pain / Temp above 100 Stop: 04/04/18 17:07 Last Admin: 02/08/18 08:31 Dose: 650 mg Al Hydrox/Mg Hydrox/Simethicone (Maalox) 30 ml PO Q4HR PRN PRN Reason: GI DISTRESS Stop: 04/04/18 17:07 Ascorbic Acid (Vitamin C) 500 mg PO DAILY [facility] Stop: 04/05/18 08:59 Last Admin: 02/08/18 08:32 Dose: 500 mg Baclofen (Lioresal) 10 mg PO TID [facility] Stop: 04/04/18 20:59 Last Admin: 02/08/18 21:13 Dose: 10 mg Divalproex Sodium (Depakote Sprinkle) 250 mg PO Q12HR [facility] PRN Reason: Protocol Stop: 04/04/18 20:59 Last Admin: 02/08/18 21:13 Dose: 250 mg Gabapentin (Neurontin) 400 mg PO QID [facility] Stop: 04/04/18 20:59 Last Admin: 02/08/18 21:12 Dose: 400 mg Lactulose (Cephulac) 20 gm PO BID [facility] Stop: 04/05/18 08:59 Last Admin: 02/08/18 16:45 Dose: 20 gm Lorazepam (Ativan) 0.5 mg PO Q4HR PRN; Protocol PRN Reason: Agitation Stop: 03/05/18 17:07 Last Admin: 02/05/18 09:19 Dose: 0.5 mg Magnesium Hydroxide (Milk Of Magnesia) 30 ml PO HS PRN PRN Reason: Constipation Multivitamins/Vitamin C (Theragran) 1 tab PO DAILY [facility] Stop: 04/05/18 08:59 Last Admin: 02/08/18 08:32 Dose: 1 tab Mupirocin (Bactroban Oint) 1 appl NS BID [facility] Stop: 02/11/18 09:01 Last Admin: 02/08/18 17:00 Dose: 1 appl Olanzapine (Zyprexa) 5 mg PO HS [facility] PRN Reason: Protocol Stop: 04/04/18 20:59 Last Admin: 02/08/18 21:13 Dose: 5 mg Senna (Senna) 8.6 mg PO BID [facility] Stop: 04/05/18 08:59 Last Admin: 02/08/18 16:45 Dose: 8.6 mg Trazodone HCl (Desyrel) 50 mg PO HS [facility] PRN Reason: Protocol Stop: 04/04/18 20:59 Last Admin: 02/08/18 21:12 Dose: 50 mg Trimethoprim/Sulfamethoxazole (Bactrim Ds) 1 tab PO BID [facility] Stop: 04/09/18 17:29 Last Admin: 02/08/18 17:30 Dose: 1 tab Wound Care/Dressing Products (Therahoney) 1 appl TP DAILY [facility] Stop: 04/06/18 20:14 Last Admin: 02/08/18 10:30 Dose: 1 appl Zolpidem Tartrate (Ambien) 5 mg PO HS PRN PRN Reason: Insomnia Stop: 04/04/18 17:07 General: Alert, Other (Confused, not oriented) HEENT: Atraumatic Neck: Supple Cardiovascular: Regular rate Lungs: Clear to auscultation Abdomen: Bowel sounds Extremities: Other (No edema) Neurological: Other (Non ambulatory) Skin: Other (There is an ulcer close to left ankle and redness around.) Psych/Mental Status: Other (Confused, not oriented) Assessment/Plan - Assessment Assessment: Patient is awake , alert, calm, in no acute distress. Dx: Cellulitis, Psychosis , HTN, non ambulatory. - Plan Plan: Patient is under psychiatric care, and continue with SNF meds. Patient is started in Bactrim. Will continue to monitor. Nutritional Asmnt/Malnutr-PDOC - Dietary Evaluation Malnutrition Findings (Please click <Entered> for more info): Nutritional Asmnt/Malnutrition Start: 02/06/18 15: 18 Text: Status: Complete Freq: Document 02/06/18 15:18 LCHENG (Rec: 02/06/18 15:28 [email or web address]) Nutritional Asmnt/Malnutrition Patient General Information Nutritional Screening Moderate Risk Consult Diagnosis psychosis Pertinent Medical Hx/Surgical Hx HTN, psychosis, non ambulatory Subjective Information Pt seen in dinning room. Per EMR, PO intake 100%. Consult received for wound, amada score 12. Current Diet Order/ Nutrition Support [facility] Pertinent Medications vit C, cephulac, theragran, senna Pertinent Labs 02/03 Na 135, Alb 4.0, Glucose 90, A1c 4.8 Nutritional Hx/Data Height 1.73 m Height (Calculated Centimeters) 172.7 Current Weight (lbs) 80.286 kg Weight (Calculated Kilograms) 80.3 Weight (Calculated Grams) 43283.8 [place] Body Weight 154 Body Mass Index (BMI) 26.9 Weight Status Overweight GI Symptoms GI Symptoms None Last BM 02/06 x 2 Difficult in: None Skin Integrity/Comment: wound care note: Left distal medial lower extremity, left lateral to malleolus wound Estimated Nutritional Goals BEE in Kcals: Adj wt of IBW Calories/Kcals/Kg 25-30 Kcals Calculated 6150-3543 Protein: Adj wt of IBW Protein g/k-1.2 Protein Calculated 72-86 Fluid: ml 1800-2160ml (1ml/ckal) Nutritional Problem 1. Problem Problem increased nutirtion needs ( protein) Etiology increased metabolic demand for wound healing Signs/Symptoms: present wound Malnutrition Alert Protein-Calorie Malnutrition N/A Is there a minimum of two criteria No selected? Query Text:Check all the applicable criteria. A minimum of two criteria are recommended for diagnosis of either severe or non-severe malnutrition. Intervention/Recommendation Comments 1. Continue with [facility] diet as ordered. 2. Monitor PO intake, wt, labs and skin integrity 3. F/U as low risk in 7 days, 02/13 Expected Outcomes/Goals Expected Outcomes/Goals 1. PO intake to meet at least 75% of nutritional needs. 2. Wt stability, skin to remain intact, labs to approach WNL.
[2018-02-09] MEDS: Lactulose 10 Gm/15 mL 30mL UDC PO SCH ×2 (08:59→17:19)
[2018-02-09] MEDS: Sulfamethoxazole/TMP 800/160mg Tab PO SCH ×2 (09:00→17:19)
[2018-02-09] MEDS: Multivitamin Tab PO SCH (09:01)
[2018-02-09] MEDS: Therahoney Gel 42.5gm Tube TP SCH (10:00)
--- NOTE | 2018-02-10 00:26 | Progress Notes ---
DATE: 02/09/2018 SUBJECTIVE: Staff was spoken to. The patient is interviewed. Mood is noted to be irritable. Affect is constricted. Insight and judgment are noted to be still impaired. Coping skills are noted to be poor. The patient has been screaming and yelling. Mood swings are still a problem. The patient is both on Depakote and Zyprexa and has been able to tolerate the medications. No side effects to the medications are noted. ASSESSMENT: The patient is still psychotic. PLAN: To continue the patient with the supportive therapy, encouraged the patient to verbalize the concerns rather than to act out. JOB# [id number]
--- NOTE | 2018-02-10 09:09 | General Progress Note ---
Subjective - Review of Systems Service Date: 02/10/18 Subjective: I am OK Objective - Results Result Diagrams: 02/09/18 07:20 02/09/18 07:20 Recent Labs: Laboratory Last Values WBC 7.9 Th/cmm (4.8-10.8) 02/09/18 07:20 RBC 4.15 Mil/cmm (3.80-5.80) 02/09/18 07:20 Hgb 11.2 gm/dL (12-16) L 02/09/18 07:20 Hct 33.9 % (41.0-60) L 02/09/18 07:20 MCV 81.8 fl (80-99) 02/09/18 07:20 MCH 27.0 pg (27.0-31.0) 02/09/18 07:20 MCHC Differential 33.0 pg (28.0-36.0) 02/09/18 07:20 RDW 16.5 % (11.5-20.0) 02/09/18 07:20 Plt Count 271 Th/cmm (150-400) 02/09/18 07:20 MPV 7.4 fl 02/09/18 07:20 Neutrophils % 81.6 % (40.0-80.0) H 02/09/18 07:20 Lymphocytes % 10.9 % (20.0-50.0) L 02/09/18 07:20 Monocytes % 7.2 % (2.0-10.0) 02/09/18 07:20 Eosinophils % 0.2 % (0.0-5.0) 02/09/18 07:20 Basophils % 0.1 % (0.0-2.0) 02/09/18 07:20 Sodium 134 mEq/L (136-145) L 02/09/18 07:20 Potassium 4.2 mEq/L (3.5-5.1) 02/09/18 07:20 Chloride 103 mEq/L (98-107) 02/09/18 07:20 Carbon Dioxide 27.8 mEq/L (21.0-31.0) 02/09/18 07:20 Anion Gap 7.4 (7.0-16.0) 02/09/18 07:20 BUN 14 mg/dL (7-25) 02/09/18 07:20 Creatinine 0.9 mg/dL (0.7-1.3) 02/09/18 07:20 Est GFR ( Amer) > 60.0 ml/min (>90) 02/09/18 07:20 Est GFR (Non-Af Amer) > 60.0 ml/min 02/09/18 07:20 BUN/Creatinine Ratio 15.6 02/09/18 07:20 Glucose 92 mg/dL (70-105) 02/09/18 07:20 Hemoglobin A1c % 4.8 % (4.0-6.0) 02/03/18 15:59 Calcium 9.2 mg/dL (8.6-10.3) 02/09/18 07:20 Total Bilirubin 0.3 mg/dL (0.3-1.0) 02/09/18 07:20 AST 17 U/L (13-39) 02/09/18 07:20 ALT 15 U/L (7-52) 02/09/18 07:20 Alkaline Phosphatase 48 U/L (34-104) 02/09/18 07:20 Total Protein 7.0 gm/dL (6.0-8.3) 02/09/18 07:20 Albumin 3.3 gm/dL (4.2-5.5) L 02/09/18 07:20 Globulin 3.7 gm/dL 02/09/18 07:20 Albumin/Globulin Ratio 0.9 (1.0-1.8) L 02/09/18 07:20 Triglycerides 127 mg/dL (<150) 02/03/18 15:59 Cholesterol 141 mg/dL (<200) 02/03/18 15:59 LDL Cholesterol Direct 77 mg/dL (75-193) 02/03/18 15:59 HDL Cholesterol 46 mg/dL (23-92) 02/03/18 15:59 TSH 2.67 uIU/ml (0.34-5.60) 02/03/18 15:59 Salicylates < 25.0 mg/L (30.0-100.0) L 02/03/18 15:59 Acetaminophen < 10.0 ug/mL (10.0-30.0) L 02/03/18 15:59 Ethyl Alcohol < 10 mg/dL (0-10) 02/03/18 15:59 RPR NONREACTIVE (NONREACTIVE) 02/03/18 15:59 - Physical Exam Vitals and I&O: Vital Signs Temp 98.4 F 02/10/18 06:28 Pulse 69 02/10/18 06:28 Resp 18 02/10/18 06:28 BP 105/57 02/10/18 06:28 Pulse Ox 96 02/10/18 06:28 Intake & Output 02/09/18 02/10/18 02/10/18 18:59 06:59 18:59 Intake Total 1000 240 Output Total 1 Balance 1000 239 Intake: Oral 1000 240 Output: Stool 1 Other: # Voids 4 1 # Bowel Movements 2 1 Active Medications: Current Medications Acetaminophen (Tylenol) 650 mg PO Q4HR PRN PRN Reason: Mild Pain / Temp above 100 Stop: 04/04/18 17:07 Last Admin: 02/08/18 08:31 Dose: 650 mg Al Hydrox/Mg Hydrox/Simethicone (Maalox) 30 ml PO Q4HR PRN PRN Reason: GI DISTRESS Stop: 04/04/18 17:07 Ascorbic Acid (Vitamin C) 500 mg PO DAILY [facility] Stop: 04/05/18 08:59 Last Admin: 02/09/18 08:59 Dose: 500 mg Baclofen (Lioresal) 10 mg PO TID [facility] Stop: 04/04/18 20:59 Last Admin: 02/09/18 20:48 Dose: 10 mg Divalproex Sodium (Depakote Sprinkle) 250 mg PO Q12HR [facility] PRN Reason: Protocol Stop: 04/04/18 20:59 Last Admin: 02/09/18 22:00 Dose: Not Given Gabapentin (Neurontin) 400 mg PO QID [facility] Stop: 04/04/18 20:59 Last Admin: 02/09/18 22:00 Dose: Not Given Lactulose (Cephulac) 20 gm PO BID [facility] Stop: 04/05/18 08:59 Last Admin: 02/09/18 17:19 Dose: 20 gm Lorazepam (Ativan) 0.5 mg PO Q4HR PRN; Protocol PRN Reason: Agitation Stop: 03/05/18 17:07 Last Admin: 02/05/18 09:19 Dose: 0.5 mg Magnesium Hydroxide (Milk Of Magnesia) 30 ml PO HS PRN PRN Reason: Constipation Multivitamins/Vitamin C (Theragran) 1 tab PO DAILY [facility] Stop: 04/05/18 08:59 Last Admin: 02/09/18 09:01 Dose: 1 tab Mupirocin (Bactroban Oint) 1 appl NS BID [facility] Stop: 02/11/18 09:01 Last Admin: 02/09/18 17:19 Dose: 1 appl Olanzapine (Zyprexa) 5 mg PO HS [facility] PRN Reason: Protocol Stop: 04/04/18 20:59 Last Admin: 02/09/18 22:00 Dose: Not Given Senna (Senna) 8.6 mg PO BID [facility] Stop: 04/05/18 08:59 Last Admin: 02/09/18 17:19 Dose: 8.6 mg Trazodone HCl (Desyrel) 50 mg PO HS [facility] PRN Reason: Protocol Stop: 04/04/18 20:59 Last Admin: 02/09/18 22:00 Dose: Not Given Trimethoprim/Sulfamethoxazole (Bactrim Ds) 1 tab PO BID [facility] Stop: 04/09/18 17:29 Last Admin: 02/09/18 17:19 Dose: 1 tab Wound Care/Dressing Products (Therahoney) 1 appl TP DAILY [facility] Stop: 04/06/18 20:14 Last Admin: 02/09/18 10:00 Dose: 1 appl Zolpidem Tartrate (Ambien) 5 mg PO HS PRN PRN Reason: Insomnia Stop: 04/04/18 17:07 General: Alert, Other (Confused, not oriented) HEENT: Atraumatic Neck: Supple Cardiovascular: Regular rate Lungs: Clear to auscultation Abdomen: Bowel sounds Extremities: Other (No edema) Neurological: Other (Non ambulatory) Skin: Other (There is an ulcer close to left ankle and redness around.) Psych/Mental Status: Other (Confused, not oriented) Assessment/Plan - Assessment Assessment: Patient is awake , alert, calm, in no acute distress. Dx: Cellulitis, Psychosis , HTN, non ambulatory. - Plan Plan: Patient is under psychiatric care, and continue with SNF meds. Patient is started in Bactrim. Will continue to monitor. Nutritional Asmnt/Malnutr-PDOC - Dietary Evaluation Malnutrition Findings (Please click <Entered> for more info): Nutritional Asmnt/Malnutrition Start: 02/06/18 15: 18 Text: Status: Complete Freq: Document 02/06/18 15:18 LCHENG (Rec: 02/06/18 15:28 [email or web address]) Nutritional Asmnt/Malnutrition Patient General Information Nutritional Screening Moderate Risk Consult Diagnosis psychosis Pertinent Medical Hx/Surgical Hx HTN, psychosis, non ambulatory Subjective Information Pt seen in dinning room. Per EMR, PO intake 100%. Consult received for wound, amada score 12. Current Diet Order/ Nutrition Support [facility] Pertinent Medications vit C, cephulac, theragran, senna Pertinent Labs 02/03 Na 135, Alb 4.0, Glucose 90, A1c 4.8 Nutritional Hx/Data Height 1.73 m Height (Calculated Centimeters) 172.7 Current Weight (lbs) 80.286 kg Weight (Calculated Kilograms) 80.3 Weight (Calculated Grams) 25682.8 [place] Body Weight 154 Body Mass Index (BMI) 26.9 Weight Status Overweight GI Symptoms GI Symptoms None Last BM 02/06 x 2 Difficult in: None Skin Integrity/Comment: wound care note: Left distal medial lower extremity, left lateral to malleolus wound Estimated Nutritional Goals BEE in Kcals: Adj wt of IBW Calories/Kcals/Kg 25-30 Kcals Calculated 6064-2071 Protein: Adj wt of IBW Protein g/k-1.2 Protein Calculated 72-86 Fluid: ml 1800-2160ml (1ml/ckal) Nutritional Problem 1. Problem Problem increased nutirtion needs ( protein) Etiology increased metabolic demand for wound healing Signs/Symptoms: present wound Malnutrition Alert Protein-Calorie Malnutrition N/A Is there a minimum of two criteria No selected? Query Text:Check all the applicable criteria. A minimum of two criteria are recommended for diagnosis of either severe or non-severe malnutrition. Intervention/Recommendation Comments 1. Continue with [facility] diet as ordered. 2. Monitor PO intake, wt, labs and skin integrity 3. F/U as low risk in 7 days, 02/13 Expected Outcomes/Goals Expected Outcomes/Goals 1. PO intake to meet at least 75% of nutritional needs. 2. Wt stability, skin to remain intact, labs to approach WNL.
[2018-02-10] MEDS: Sulfamethoxazole/TMP 800/160mg Tab PO SCH ×2 (09:48→16:44)
[2018-02-10] MEDS: Multivitamin Tab PO SCH (09:49)
[2018-02-10] MEDS: Lactulose 10 Gm/15 mL 30mL UDC PO SCH ×2 (16:43→16:44)
[2018-02-10] MEDS: Therahoney Gel 42.5gm Tube TP SCH (18:42)
--- NOTE | 2018-02-11 01:31 | Progress Notes ---
DATE: 02/10/2018 SUBJECTIVE: Staff was spoken to. The patient is interviewed. Mood is noted to be less irritable today, but the patient, however, has been insisting that he should not be in here, he should be discharged. Coping skills are noted to be very poor at this time. No side effects to the medications are noted. ASSESSMENT: The patient is still having mood swings and paranoia. PLAN: To continue the patient with the current medications and followup. JOB# [id number]
[2018-02-11] MEDS: Lactulose 10 Gm/15 mL 30mL UDC PO SCH ×2 (08:52→16:45)
[2018-02-11] MEDS: Sulfamethoxazole/TMP 800/160mg Tab PO SCH ×2 (08:53→16:46)
[2018-02-11] MEDS: Multivitamin Tab PO SCH (08:54)
--- NOTE | 2018-02-11 08:57 | General Progress Note ---
Subjective - Review of Systems Service Date: 02/11/18 Subjective: I am OK Objective - Results Result Diagrams: 02/09/18 07:20 02/09/18 07:20 Recent Labs: Laboratory Last Values WBC 7.9 Th/cmm (4.8-10.8) 02/09/18 07:20 RBC 4.15 Mil/cmm (3.80-5.80) 02/09/18 07:20 Hgb 11.2 gm/dL (12-16) L 02/09/18 07:20 Hct 33.9 % (41.0-60) L 02/09/18 07:20 MCV 81.8 fl (80-99) 02/09/18 07:20 MCH 27.0 pg (27.0-31.0) 02/09/18 07:20 MCHC Differential 33.0 pg (28.0-36.0) 02/09/18 07:20 RDW 16.5 % (11.5-20.0) 02/09/18 07:20 Plt Count 271 Th/cmm (150-400) 02/09/18 07:20 MPV 7.4 fl 02/09/18 07:20 Neutrophils % 81.6 % (40.0-80.0) H 02/09/18 07:20 Lymphocytes % 10.9 % (20.0-50.0) L 02/09/18 07:20 Monocytes % 7.2 % (2.0-10.0) 02/09/18 07:20 Eosinophils % 0.2 % (0.0-5.0) 02/09/18 07:20 Basophils % 0.1 % (0.0-2.0) 02/09/18 07:20 Sodium 134 mEq/L (136-145) L 02/09/18 07:20 Potassium 4.2 mEq/L (3.5-5.1) 02/09/18 07:20 Chloride 103 mEq/L (98-107) 02/09/18 07:20 Carbon Dioxide 27.8 mEq/L (21.0-31.0) 02/09/18 07:20 Anion Gap 7.4 (7.0-16.0) 02/09/18 07:20 BUN 14 mg/dL (7-25) 02/09/18 07:20 Creatinine 0.9 mg/dL (0.7-1.3) 02/09/18 07:20 Est GFR ( Amer) > 60.0 ml/min (>90) 02/09/18 07:20 Est GFR (Non-Af Amer) > 60.0 ml/min 02/09/18 07:20 BUN/Creatinine Ratio 15.6 02/09/18 07:20 Glucose 92 mg/dL (70-105) 02/09/18 07:20 Hemoglobin A1c % 4.8 % (4.0-6.0) 02/03/18 15:59 Calcium 9.2 mg/dL (8.6-10.3) 02/09/18 07:20 Total Bilirubin 0.3 mg/dL (0.3-1.0) 02/09/18 07:20 AST 17 U/L (13-39) 02/09/18 07:20 ALT 15 U/L (7-52) 02/09/18 07:20 Alkaline Phosphatase 48 U/L (34-104) 02/09/18 07:20 Total Protein 7.0 gm/dL (6.0-8.3) 02/09/18 07:20 Albumin 3.3 gm/dL (4.2-5.5) L 02/09/18 07:20 Globulin 3.7 gm/dL 02/09/18 07:20 Albumin/Globulin Ratio 0.9 (1.0-1.8) L 02/09/18 07:20 Triglycerides 127 mg/dL (<150) 02/03/18 15:59 Cholesterol 141 mg/dL (<200) 02/03/18 15:59 LDL Cholesterol Direct 77 mg/dL (75-193) 02/03/18 15:59 HDL Cholesterol 46 mg/dL (23-92) 02/03/18 15:59 TSH 2.67 uIU/ml (0.34-5.60) 02/03/18 15:59 Salicylates < 25.0 mg/L (30.0-100.0) L 02/03/18 15:59 Acetaminophen < 10.0 ug/mL (10.0-30.0) L 02/03/18 15:59 Ethyl Alcohol < 10 mg/dL (0-10) 02/03/18 15:59 RPR NONREACTIVE (NONREACTIVE) 02/03/18 15:59 - Physical Exam Vitals and I&O: Vital Signs Temp 98 F 02/11/18 06:32 Pulse 74 02/11/18 06:32 Resp 18 02/11/18 06:32 BP 109/71 02/11/18 06:32 Pulse Ox 97 02/11/18 06:32 Intake & Output 02/10/18 02/11/18 02/11/18 18:59 06:59 18:59 Intake Total 1200 480 Balance 1200 480 Intake: Oral 1200 480 Other: # Voids 3 1 # Bowel Movements 1 Active Medications: Current Medications Acetaminophen (Tylenol) 650 mg PO Q4HR PRN PRN Reason: Mild Pain / Temp above 100 Stop: 04/04/18 17:07 Last Admin: 02/08/18 08:31 Dose: 650 mg Al Hydrox/Mg Hydrox/Simethicone (Maalox) 30 ml PO Q4HR PRN PRN Reason: GI DISTRESS Stop: 04/04/18 17:07 Ascorbic Acid (Vitamin C) 500 mg PO DAILY [facility] Stop: 04/05/18 08:59 Last Admin: 02/10/18 09:49 Dose: 500 mg Baclofen (Lioresal) 10 mg PO TID [facility] Stop: 04/04/18 20:59 Last Admin: 02/10/18 21:00 Dose: Not Given Divalproex Sodium (Depakote Sprinkle) 250 mg PO Q12HR SEVERO PRN Reason: Protocol Stop: 04/04/18 20:59 Last Admin: 02/10/18 21:00 Dose: Not Given Gabapentin (Neurontin) 400 mg PO QID [facility] Stop: 04/04/18 20:59 Last Admin: 02/10/18 21:00 Dose: Not Given Lactulose (Cephulac) 20 gm PO BID [facility] Stop: 04/05/18 08:59 Last Admin: 02/10/18 16:44 Dose: Not Given Lorazepam (Ativan) 0.5 mg PO Q4HR PRN; Protocol PRN Reason: Agitation Stop: 03/05/18 17:07 Last Admin: 02/05/18 09:19 Dose: 0.5 mg Magnesium Hydroxide (Milk Of Magnesia) 30 ml PO HS PRN PRN Reason: Constipation Multivitamins/Vitamin C (Theragran) 1 tab PO DAILY [facility] Stop: 04/05/18 08:59 Last Admin: 02/10/18 09:49 Dose: 1 tab Mupirocin (Bactroban Oint) 1 appl NS BID [facility] Stop: 02/11/18 09:01 Last Admin: 02/10/18 16:44 Dose: Not Given Olanzapine (Zyprexa) 5 mg PO HS SEVERO PRN Reason: Protocol Stop: 04/04/18 20:59 Last Admin: 02/10/18 21:00 Dose: Not Given Senna (Senna) 8.6 mg PO BID [facility] Stop: 04/05/18 08:59 Last Admin: 02/10/18 16:44 Dose: Not Given Trazodone HCl (Desyrel) 50 mg PO HS SEVERO PRN Reason: Protocol Stop: 04/04/18 20:59 Last Admin: 02/10/18 21:00 Dose: Not Given Trimethoprim/Sulfamethoxazole (Bactrim Ds) 1 tab PO BID [facility] Stop: 04/09/18 17:29 Last Admin: 02/10/18 16:44 Dose: Not Given Wound Care/Dressing Products (Therahoney) 1 appl TP DAILY [facility] Stop: 04/06/18 20:14 Last Admin: 02/10/18 18:42 Dose: Not Given Zolpidem Tartrate (Ambien) 5 mg PO HS PRN PRN Reason: Insomnia Stop: 04/04/18 17:07 General: Alert, Other (Confused, not oriented) HEENT: Atraumatic Neck: Supple Cardiovascular: Regular rate Lungs: Clear to auscultation Abdomen: Bowel sounds Extremities: Other (No edema) Neurological: Other (Non ambulatory) Skin: Other (There is an ulcer close to left ankle and redness around.) Psych/Mental Status: Other (Confused, not oriented) Assessment/Plan - Assessment Assessment: Patient is awake , alert, calm, in no acute distress. Cellulitis improving. Dx : Cellulitis, Psychosis, HTN, non ambulatory. - Plan Plan: Patient is under psychiatric care, and continue with SNF meds. Patient is started in Bactrim. Will continue to monitor. Nutritional Asmnt/Malnutr-PDOC - Dietary Evaluation Malnutrition Findings (Please click <Entered> for more info): Nutritional Asmnt/Malnutrition Start: 02/06/18 15: 18 Text: Status: Complete Freq: Document 02/06/18 15:18 LCHENG (Rec: 02/06/18 15:28 [email or web address]) Nutritional Asmnt/Malnutrition Patient General Information Nutritional Screening Moderate Risk Consult Diagnosis psychosis Pertinent Medical Hx/Surgical Hx HTN, psychosis, non ambulatory Subjective Information Pt seen in dinning room. Per EMR, PO intake 100%. Consult received for wound, amada score 12. Current Diet Order/ Nutrition Support [facility] Pertinent Medications vit C, cephulac, theragran, senna Pertinent Labs 02/03 Na 135, Alb 4.0, Glucose 90, A1c 4.8 Nutritional Hx/Data Height 1.73 m Height (Calculated Centimeters) 172.7 Current Weight (lbs) 80.286 kg Weight (Calculated Kilograms) 80.3 Weight (Calculated Grams) 51378.8 [place] Body Weight 154 Body Mass Index (BMI) 26.9 Weight Status Overweight GI Symptoms GI Symptoms None Last BM 02/06 x 2 Difficult in: None Skin Integrity/Comment: wound care note: Left distal medial lower extremity, left lateral to malleolus wound Estimated Nutritional Goals BEE in Kcals: Adj wt of IBW Calories/Kcals/Kg 25-30 Kcals Calculated 8901-8242 Protein: Adj wt of IBW Protein g/k-1.2 Protein Calculated 72-86 Fluid: ml 1800-2160ml (1ml/ckal) Nutritional Problem 1. Problem Problem increased nutirtion needs ( protein) Etiology increased metabolic demand for wound healing Signs/Symptoms: present wound Malnutrition Alert Protein-Calorie Malnutrition N/A Is there a minimum of two criteria No selected? Query Text:Check all the applicable criteria. A minimum of two criteria are recommended for diagnosis of either severe or non-severe malnutrition. Intervention/Recommendation Comments 1. Continue with [facility] diet as ordered. 2. Monitor PO intake, wt, labs and skin integrity 3. F/U as low risk in 7 days, 02/13 Expected Outcomes/Goals Expected Outcomes/Goals 1. PO intake to meet at least 75% of nutritional needs. 2. Wt stability, skin to remain intact, labs to approach WNL.
--- NOTE | 2018-02-11 14:35 | Progress Notes ---
DATE: 02/11/2018 SUBJECTIVE: Staff was spoken to. The patient is interviewed. Mood is noted to be irritable. Affect is constricted. Continues to be impulsive. Insight and judgment is still impaired. No side effects to the medications are noted. The patient has been having difficult time to cope with the stress. The patient is still isolated and withdrawn. The patient's blood work has been reviewed. The hemoglobin is low at 11.2, hematocrit is 33.9, sodium has been dipping to 134. The patient's coping skills are noted to be still poor. No side effects to the medications are noted. ASSESSMENT: The patient is still impulsive. PLAN: To continue the patient with Depakote, possibly is going to be increased to t.i.d. and Zyprexa is going to be continued at 5 mg twice a day and the patient is going to be followed up with the supportive therapy. Please note that the patient is not ready to be discharged to a lower level of care in view of his impulsivity and agitation. [facility]# [id number]
[2018-02-11] MEDS: Therahoney Gel 42.5gm Tube TP SCH (16:48)
[2018-02-12] MEDS: Lactulose 10 Gm/15 mL 30mL UDC PO SCH ×2 (09:07→17:05)
[2018-02-12] MEDS: Multivitamin Tab PO SCH (09:08)
[2018-02-12] MEDS: Sulfamethoxazole/TMP 800/160mg Tab PO SCH ×2 (09:08→17:05)
[2018-02-12] MEDS: Therahoney Gel 42.5gm Tube TP SCH (09:15)
--- NOTE | 2018-02-12 10:42 | General Progress Note ---
Subjective - Review of Systems Service Date: 02/12/18 Subjective: I am OK Objective - Results Result Diagrams: 02/09/18 07:20 02/09/18 07:20 Recent Labs: Laboratory Last Values WBC 7.9 Th/cmm (4.8-10.8) 02/09/18 07:20 RBC 4.15 Mil/cmm (3.80-5.80) 02/09/18 07:20 Hgb 11.2 gm/dL (12-16) L 02/09/18 07:20 Hct 33.9 % (41.0-60) L 02/09/18 07:20 MCV 81.8 fl (80-99) 02/09/18 07:20 MCH 27.0 pg (27.0-31.0) 02/09/18 07:20 MCHC Differential 33.0 pg (28.0-36.0) 02/09/18 07:20 RDW 16.5 % (11.5-20.0) 02/09/18 07:20 Plt Count 271 Th/cmm (150-400) 02/09/18 07:20 MPV 7.4 fl 02/09/18 07:20 Neutrophils % 81.6 % (40.0-80.0) H 02/09/18 07:20 Lymphocytes % 10.9 % (20.0-50.0) L 02/09/18 07:20 Monocytes % 7.2 % (2.0-10.0) 02/09/18 07:20 Eosinophils % 0.2 % (0.0-5.0) 02/09/18 07:20 Basophils % 0.1 % (0.0-2.0) 02/09/18 07:20 Sodium 134 mEq/L (136-145) L 02/09/18 07:20 Potassium 4.2 mEq/L (3.5-5.1) 02/09/18 07:20 Chloride 103 mEq/L (98-107) 02/09/18 07:20 Carbon Dioxide 27.8 mEq/L (21.0-31.0) 02/09/18 07:20 Anion Gap 7.4 (7.0-16.0) 02/09/18 07:20 BUN 14 mg/dL (7-25) 02/09/18 07:20 Creatinine 0.9 mg/dL (0.7-1.3) 02/09/18 07:20 Est GFR ( Amer) > 60.0 ml/min (>90) 02/09/18 07:20 Est GFR (Non-Af Amer) > 60.0 ml/min 02/09/18 07:20 BUN/Creatinine Ratio 15.6 02/09/18 07:20 Glucose 92 mg/dL (70-105) 02/09/18 07:20 Hemoglobin A1c % 4.8 % (4.0-6.0) 02/03/18 15:59 Calcium 9.2 mg/dL (8.6-10.3) 02/09/18 07:20 Total Bilirubin 0.3 mg/dL (0.3-1.0) 02/09/18 07:20 AST 17 U/L (13-39) 02/09/18 07:20 ALT 15 U/L (7-52) 02/09/18 07:20 Alkaline Phosphatase 48 U/L (34-104) 02/09/18 07:20 Total Protein 7.0 gm/dL (6.0-8.3) 02/09/18 07:20 Albumin 3.3 gm/dL (4.2-5.5) L 02/09/18 07:20 Globulin 3.7 gm/dL 02/09/18 07:20 Albumin/Globulin Ratio 0.9 (1.0-1.8) L 02/09/18 07:20 Triglycerides 127 mg/dL (<150) 02/03/18 15:59 Cholesterol 141 mg/dL (<200) 02/03/18 15:59 LDL Cholesterol Direct 77 mg/dL (75-193) 02/03/18 15:59 HDL Cholesterol 46 mg/dL (23-92) 02/03/18 15:59 TSH 2.67 uIU/ml (0.34-5.60) 02/03/18 15:59 Salicylates < 25.0 mg/L (30.0-100.0) L 02/03/18 15:59 Acetaminophen < 10.0 ug/mL (10.0-30.0) L 02/03/18 15:59 Ethyl Alcohol < 10 mg/dL (0-10) 02/03/18 15:59 RPR NONREACTIVE (NONREACTIVE) 02/03/18 15:59 - Physical Exam Vitals and I&O: Vital Signs Temp 98.3 F 02/12/18 06:41 Pulse 83 02/12/18 06:41 Resp 19 02/12/18 06:41 BP 115/77 02/12/18 06:41 Pulse Ox 99 02/12/18 06:41 Intake & Output 02/11/18 02/12/18 02/12/18 18:59 06:59 18:59 Intake Total 1500 120 Balance 1500 120 Intake: Oral 1500 120 Other: # Voids 3 3 # Bowel Movements 1 Active Medications: Current Medications Acetaminophen (Tylenol) 650 mg PO Q4HR PRN PRN Reason: Mild Pain / Temp above 100 Stop: 04/04/18 17:07 Last Admin: 02/08/18 08:31 Dose: 650 mg Al Hydrox/Mg Hydrox/Simethicone (Maalox) 30 ml PO Q4HR PRN PRN Reason: GI DISTRESS Stop: 04/04/18 17:07 Ascorbic Acid (Vitamin C) 500 mg PO DAILY [facility] Stop: 04/05/18 08:59 Last Admin: 02/12/18 09:08 Dose: 500 mg Baclofen (Lioresal) 10 mg PO TID [facility] Stop: 04/04/18 20:59 Last Admin: 02/12/18 09:08 Dose: 10 mg Divalproex Sodium (Depakote Sprinkle) 250 mg PO TID [facility] PRN Reason: Protocol Stop: 04/12/18 13:59 Last Admin: 02/12/18 09:08 Dose: 250 mg Gabapentin (Neurontin) 400 mg PO QID [facility] Stop: 04/04/18 20:59 Last Admin: 02/12/18 09:08 Dose: 400 mg Lactulose (Cephulac) 20 gm PO BID [facility] Stop: 04/05/18 08:59 Last Admin: 02/12/18 09:07 Dose: 20 gm Lorazepam (Ativan) 0.5 mg PO Q4HR PRN; Protocol PRN Reason: Agitation Stop: 03/05/18 17:07 Last Admin: 02/05/18 09:19 Dose: 0.5 mg Magnesium Hydroxide (Milk Of Magnesia) 30 ml PO HS PRN PRN Reason: Constipation Multivitamins/Vitamin C (Theragran) 1 tab PO DAILY [facility] Stop: 04/05/18 08:59 Last Admin: 02/12/18 09:08 Dose: 1 tab Olanzapine (Zyprexa) 5 mg PO HS SEVERO PRN Reason: Protocol Stop: 04/04/18 20:59 Last Admin: 02/11/18 21:42 Dose: 5 mg Senna (Senna) 8.6 mg PO BID [facility] Stop: 04/05/18 08:59 Last Admin: 02/12/18 09:08 Dose: 8.6 mg Trazodone HCl (Desyrel) 50 mg PO HS SEVERO PRN Reason: Protocol Stop: 04/04/18 20:59 Last Admin: 02/11/18 21:42 Dose: 50 mg Trimethoprim/Sulfamethoxazole (Bactrim Ds) 1 tab PO BID [facility] Stop: 04/09/18 17:29 Last Admin: 02/12/18 09:08 Dose: 1 tab Wound Care/Dressing Products (Therahoney) 1 appl TP DAILY [facility] Stop: 04/06/18 20:14 Last Admin: 02/12/18 09:15 Dose: 1 appl Zolpidem Tartrate (Ambien) 5 mg PO HS PRN PRN Reason: Insomnia Stop: 04/04/18 17:07 General: Alert, Other (Confused, not oriented) HEENT: Atraumatic Neck: Supple Cardiovascular: Regular rate Lungs: Clear to auscultation Abdomen: Bowel sounds Extremities: Other (No edema) Neurological: Other (Non ambulatory) Skin: Other (There is an ulcer close to left ankle and redness around.) Psych/Mental Status: Other (Confused, not oriented) Assessment/Plan - Assessment Assessment: Patient is awake , alert, calm, in no acute distress. Cellulitis improving. Dx : Cellulitis, Psychosis, HTN, non ambulatory. - Plan Plan: Patient is under psychiatric care, and continue with SNF meds. Patient is started in Bactrim. Will continue to monitor. Nutritional Asmnt/Malnutr-PDOC - Dietary Evaluation Malnutrition Findings (Please click <Entered> for more info): Nutritional Asmnt/Malnutrition Start: 02/06/18 15: 18 Text: Status: Complete Freq: Document 02/06/18 15:18 WILL (Rec: 02/06/18 15:28 [email or web address]) Nutritional Asmnt/Malnutrition Patient General Information Nutritional Screening Moderate Risk Consult Diagnosis psychosis Pertinent Medical Hx/Surgical Hx HTN, psychosis, non ambulatory Subjective Information Pt seen in dinning room. Per EMR, PO intake 100%. Consult received for wound, amada score 12. Current Diet Order/ Nutrition Support [facility] Pertinent Medications vit C, cephulac, theragran, senna Pertinent Labs 3/6 Na 135, Alb 4.0, Glucose 90, A1c 4.8 Nutritional Hx/Data Height 1.73 m Height (Calculated Centimeters) 172.7 Current Weight (lbs) 80.286 kg Weight (Calculated Kilograms) 80.3 Weight (Calculated Grams) 02950.8 [place] Body Weight 154 Body Mass Index (BMI) 26.9 Weight Status Overweight GI Symptoms GI Symptoms None Last BM 02/06 x 2 Difficult in: None Skin Integrity/Comment: wound care note: Left distal medial lower extremity, left lateral to malleolus wound Estimated Nutritional Goals BEE in Kcals: Adj wt of IBW Calories/Kcals/Kg 25-30 Kcals Calculated 2417-4381 Protein: Adj wt of IBW Protein g/k-1.2 Protein Calculated 72-86 Fluid: ml 1800-2160ml (1ml/ckal) Nutritional Problem 1. Problem Problem increased nutirtion needs ( protein) Etiology increased metabolic demand for wound healing Signs/Symptoms: present wound Malnutrition Alert Protein-Calorie Malnutrition N/A Is there a minimum of two criteria No selected? Query Text:Check all the applicable criteria. A minimum of two criteria are recommended for diagnosis of either severe or non-severe malnutrition. Intervention/Recommendation Comments 1. Continue with [facility] diet as ordered. 2. Monitor PO intake, wt, labs and skin integrity 3. F/U as low risk in 7 days, 02/13 Expected Outcomes/Goals Expected Outcomes/Goals 1. PO intake to meet at least 75% of nutritional needs. 2. Wt stability, skin to remain intact, labs to approach WNL.
--- NOTE | 2018-02-12 18:02 | Progress Notes ---
DATE: 02/12/2018 SUBJECTIVE: Staff was spoken to. The patient is interviewed. Mood is noted to be anxious. The patient's coping skills are noted to be very poor. The patient has been having difficult time to cope with the stress. Mood swings are ____. The patient's sleep and appetite are noted to be improving. No side effects to the medications are noted. ASSESSMENT: The patient is still having mood swings. PLAN: To continue the patient with the supportive therapy and followup. JOB# [id number]
--- NOTE | 2018-02-13 08:36 | General Progress Note ---
Subjective - Review of Systems Service Date: 02/13/18 Subjective: I am OK Objective - Results Result Diagrams: 02/09/18 07:20 02/09/18 07:20 Recent Labs: Laboratory Last Values WBC 7.9 Th/cmm (4.8-10.8) 02/09/18 07:20 RBC 4.15 Mil/cmm (3.80-5.80) 02/09/18 07:20 Hgb 11.2 gm/dL (12-16) L 02/09/18 07:20 Hct 33.9 % (41.0-60) L 02/09/18 07:20 MCV 81.8 fl (80-99) 02/09/18 07:20 MCH 27.0 pg (27.0-31.0) 02/09/18 07:20 MCHC Differential 33.0 pg (28.0-36.0) 02/09/18 07:20 RDW 16.5 % (11.5-20.0) 02/09/18 07:20 Plt Count 271 Th/cmm (150-400) 02/09/18 07:20 MPV 7.4 fl 02/09/18 07:20 Neutrophils % 81.6 % (40.0-80.0) H 02/09/18 07:20 Lymphocytes % 10.9 % (20.0-50.0) L 02/09/18 07:20 Monocytes % 7.2 % (2.0-10.0) 02/09/18 07:20 Eosinophils % 0.2 % (0.0-5.0) 02/09/18 07:20 Basophils % 0.1 % (0.0-2.0) 02/09/18 07:20 Sodium 134 mEq/L (136-145) L 02/09/18 07:20 Potassium 4.2 mEq/L (3.5-5.1) 02/09/18 07:20 Chloride 103 mEq/L (98-107) 02/09/18 07:20 Carbon Dioxide 27.8 mEq/L (21.0-31.0) 02/09/18 07:20 Anion Gap 7.4 (7.0-16.0) 02/09/18 07:20 BUN 14 mg/dL (7-25) 02/09/18 07:20 Creatinine 0.9 mg/dL (0.7-1.3) 02/09/18 07:20 Est GFR ( Amer) > 60.0 ml/min (>90) 02/09/18 07:20 Est GFR (Non-Af Amer) > 60.0 ml/min 02/09/18 07:20 BUN/Creatinine Ratio 15.6 02/09/18 07:20 Glucose 92 mg/dL (70-105) 02/09/18 07:20 Hemoglobin A1c % 4.8 % (4.0-6.0) 02/03/18 15:59 Calcium 9.2 mg/dL (8.6-10.3) 02/09/18 07:20 Total Bilirubin 0.3 mg/dL (0.3-1.0) 02/09/18 07:20 AST 17 U/L (13-39) 02/09/18 07:20 ALT 15 U/L (7-52) 02/09/18 07:20 Alkaline Phosphatase 48 U/L (34-104) 02/09/18 07:20 Total Protein 7.0 gm/dL (6.0-8.3) 02/09/18 07:20 Albumin 3.3 gm/dL (4.2-5.5) L 02/09/18 07:20 Globulin 3.7 gm/dL 02/09/18 07:20 Albumin/Globulin Ratio 0.9 (1.0-1.8) L 02/09/18 07:20 Triglycerides 127 mg/dL (<150) 02/03/18 15:59 Cholesterol 141 mg/dL (<200) 02/03/18 15:59 LDL Cholesterol Direct 77 mg/dL (75-193) 02/03/18 15:59 HDL Cholesterol 46 mg/dL (23-92) 02/03/18 15:59 TSH 2.67 uIU/ml (0.34-5.60) 02/03/18 15:59 Salicylates < 25.0 mg/L (30.0-100.0) L 02/03/18 15:59 Acetaminophen < 10.0 ug/mL (10.0-30.0) L 02/03/18 15:59 Ethyl Alcohol < 10 mg/dL (0-10) 02/03/18 15:59 RPR NONREACTIVE (NONREACTIVE) 02/03/18 15:59 - Physical Exam Vitals and I&O: Vital Signs Temp 97.7 F 02/13/18 06:41 Pulse 72 02/12/18 20:00 Resp 20 02/13/18 06:41 BP 113/68 02/13/18 06:41 Pulse Ox 67 02/13/18 06:41 Intake & Output 02/12/18 02/13/18 02/13/18 18:59 06:59 18:59 Intake Total 1500 120 Balance 1500 120 Intake: Oral 1500 120 Other: # Voids 3 3 Stool Characteristics Soft Active Medications: Current Medications Acetaminophen (Tylenol) 650 mg PO Q4HR PRN PRN Reason: Mild Pain / Temp above 100 Stop: 04/04/18 17:07 Last Admin: 02/08/18 08:31 Dose: 650 mg Al Hydrox/Mg Hydrox/Simethicone (Maalox) 30 ml PO Q4HR PRN PRN Reason: GI DISTRESS Stop: 04/04/18 17:07 Ascorbic Acid (Vitamin C) 500 mg PO DAILY [facility] Stop: 04/05/18 08:59 Last Admin: 02/12/18 09:08 Dose: 500 mg Baclofen (Lioresal) 10 mg PO TID SE[facility] Stop: 04/04/18 20:59 Last Admin: 02/12/18 21:04 Dose: 10 mg Divalproex Sodium (Depakote Sprinkle) 250 mg PO TID SEVERO PRN Reason: Protocol Stop: 04/12/18 13:59 Last Admin: 02/12/18 21:05 Dose: 250 mg Gabapentin (Neurontin) 400 mg PO QID [facility] Stop: 04/04/18 20:59 Last Admin: 02/12/18 21:05 Dose: 400 mg Lactulose (Cephulac) 20 gm PO BID [facility] Stop: 04/05/18 08:59 Last Admin: 02/12/18 17:05 Dose: 20 gm Lorazepam (Ativan) 0.5 mg PO Q4HR PRN; Protocol PRN Reason: Agitation Stop: 03/05/18 17:07 Last Admin: 02/05/18 09:19 Dose: 0.5 mg Magnesium Hydroxide (Milk Of Magnesia) 30 ml PO HS PRN PRN Reason: Constipation Multivitamins/Vitamin C (Theragran) 1 tab PO DAILY [facility] Stop: 04/05/18 08:59 Last Admin: 02/12/18 09:08 Dose: 1 tab Olanzapine (Zyprexa) 5 mg PO HS [facility] PRN Reason: Protocol Stop: 04/04/18 20:59 Last Admin: 02/12/18 21:15 Dose: 5 mg Senna (Senna) 8.6 mg PO BID [facility] Stop: 04/05/18 08:59 Last Admin: 02/12/18 17:05 Dose: 8.6 mg Trazodone HCl (Desyrel) 50 mg PO HS SEVERO PRN Reason: Protocol Stop: 04/04/18 20:59 Last Admin: 02/12/18 21:25 Dose: 50 mg Trimethoprim/Sulfamethoxazole (Bactrim Ds) 1 tab PO BID [facility] Stop: 04/09/18 17:29 Last Admin: 02/12/18 17:05 Dose: 1 tab Wound Care/Dressing Products (Therahoney) 1 appl TP DAILY [facility] Stop: 04/06/18 20:14 Last Admin: 02/12/18 09:15 Dose: 1 appl Zolpidem Tartrate (Ambien) 5 mg PO HS PRN PRN Reason: Insomnia Stop: 04/04/18 17:07 General: Alert, Other (Confused, not oriented) HEENT: Atraumatic Neck: Supple Cardiovascular: Regular rate Lungs: Clear to auscultation Abdomen: Bowel sounds Extremities: Other (No edema) Neurological: Other (Non ambulatory) Skin: Other (There is an ulcer close to left ankle and redness around.) Psych/Mental Status: Other (Confused, not oriented) Assessment/Plan - Assessment Assessment: Patient is awake , alert, calm, in no acute distress. Cellulitis improving. Dx : Cellulitis, Psychosis, HTN, non ambulatory. - Plan Plan: Patient is under psychiatric care, and continue with SNF meds. Patient is in Bactrim. Will continue to monitor. Nutritional Asmnt/Malnutr-PDOC - Dietary Evaluation Malnutrition Findings (Please click <Entered> for more info): Nutritional Asmnt/Malnutrition Start: 02/06/18 15: 18 Text: Status: Complete Freq: Document 02/06/18 15:18 WILL (Rec: 02/06/18 15:28 [email or web address]) Nutritional Asmnt/Malnutrition Patient General Information Nutritional Screening Moderate Risk Consult Diagnosis psychosis Pertinent Medical Hx/Surgical Hx HTN, psychosis, non ambulatory Subjective Information Pt seen in dinning room. Per EMR, PO intake 100%. Consult received for wound, amada score 12. Current Diet Order/ Nutrition Support [facility] soft ground Pertinent Medications vit C, cephulac, theragran, senna Pertinent Labs 3/6 Na 135, Alb 4.0, Glucose 90, A1c 4.8 Nutritional Hx/Data Height 1.73 m Height (Calculated Centimeters) 172.7 Current Weight (lbs) 80.286 kg Weight (Calculated Kilograms) 80.3 Weight (Calculated Grams) 52038.8 [place] Body Weight 154 Body Mass Index (BMI) 26.9 Weight Status Overweight GI Symptoms GI Symptoms None Last BM 02/06 x 2 Difficult in: None Skin Integrity/Comment: wound care note: Left distal medial lower extremity, left lateral to malleolus wound Estimated Nutritional Goals BEE in Kcals: Adj wt of IBW Calories/Kcals/Kg 25-30 Kcals Calculated 2727-3680 Protein: Adj wt of IBW Protein g/k-1.2 Protein Calculated 72-86 Fluid: ml 1800-2160ml (1ml/ckal) Nutritional Problem 1. Problem Problem increased nutirtion needs ( protein) Etiology increased metabolic demand for wound healing Signs/Symptoms: present wound Malnutrition Alert Protein-Calorie Malnutrition N/A Is there a minimum of two criteria No selected? Query Text:Check all the applicable criteria. A minimum of two criteria are recommended for diagnosis of either severe or non-severe malnutrition. Intervention/Recommendation Comments 1. Continue with [facility] soft ground diet as ordered. 2. Monitor PO intake, wt, labs and skin integrity 3. F/U as low risk in 7 days, 02/13 Expected Outcomes/Goals Expected Outcomes/Goals 1. PO intake to meet at least 75% of nutritional needs. 2. Wt stability, skin to remain intact, labs to approach WNL.
[2018-02-13] MEDS: Lactulose 10 Gm/15 mL 30mL UDC PO SCH ×2 (08:44→16:49)
[2018-02-13] MEDS: Sulfamethoxazole/TMP 800/160mg Tab PO SCH ×2 (08:44→16:49)
[2018-02-13] MEDS: Multivitamin Tab PO SCH (08:44)
[2018-02-13 09:04] LABS: % BASOPHILS 0.7 % (0.0-2.0); % EOSINOPHILS 3.6 % (0.0-5.0); % LYMPHOCYTES 26.9 % (20.0-50.0); % MONOCYTES 4.5 % (2.0-10.0); % NEUTROPHILS 64.3 % (40.0-80.0); EOSINOPHILE ABSOLUTE 0.2 Th/cmm (0.1-0.4); HEMATOCRIT 35.4 % (41.0-60); LYMPHOCYTE ABSOLUTE 1.9 Th/cmm (1.5-3.0); MEAN CORPUSCULAR HEMOGLOBIN 27.9 pg (27.0-31.0); MEAN PLATELET VOLUME 7.7 fl; MONOCYTE ABSOLUTE 0.3 Th/cmm (0.3-1.0); NEUTROPHILE ABSOLUTE 4.5 Th/cmm (1.8-8.0); PLATELET COUNT 339 Th/cmm (150-400); RED BLOOD COUNT 4.32 Mil/cmm (3.80-5.80); RED CELL DISTRIBUTION WIDTH 16.3 % (11.5-20.0); WHITE BLOOD COUNT 6.9 Th/cmm (4.8-10.8)
[2018-02-13 09:20] LABS: ALBUMIN 3.6 gm/dL (4.2-5.5); ALKALINE PHOSPHATASE 54 U/L (34-104); ANION GAP 10.3 (7.0-16.0); BILIRUBIN,TOTAL 0.2 mg/dL (0.3-1.0); BUN - UREA NITROGEN 15 mg/dL (7-25); CALCIUM SERUM 9.2 mg/dL (8.6-10.3); CARBON DIOXIDE 23.8 mEq/L (21.0-31.0); CHLORIDE 103 mEq/L (98-107); CREATININE - SERUM 0.8 mg/dL (0.7-1.3); GFR AFRICAN-AMERICAN > 60.0 ml/min (>90); GFR NON AFRICAN-AMERICAN > 60.0 ml/min; GLUCOSE 196 mg/dL (70-105); POTASSIUM SERUM 4.1 mEq/L (3.5-5.1); SGOT 20 U/L (13-39); SGPT/ALT 19 U/L (7-52); SODIUM SERUM 133 mEq/L (136-145); TOTAL PROTEIN,SERUM 7.4 gm/dL (6.0-8.3)
[2018-02-13] MEDS: Therahoney Gel 42.5gm Tube TP SCH (09:38)
--- NOTE | 2018-02-14 02:49 | Progress Notes ---
DATE: 02/13/2018 SUBJECTIVE: Staff was spoken to. The patient is interviewed. Mood is noted to be anxious. Affect is appropriate. The patient is not suicidal or homicidal. Insight and judgment noted to be improving. Impulse control seems to be fair. Coping skills are also noted fair. The patient has been able to verbalize the concerns rather than to act out. The patient is motivated for treatment at this time. ASSESSMENT: The patient is stabilizing. PLAN: To discharge the patient today for followup on outpatient basis. JOB# [id number]
== END 2018-02-13 18:46 | disposition home or self-care (01) | DRG 885 ==
LOC: ER 14:45 → GERO 16:50
PROVIDERS: ADMIT Psychiatry & Neurology Psychiatry; ATTEND Psychiatry & Neurology Psychiatry
DX: F29 Unspecified psychosis not due to a substance or known physiological condition (principal); F03.91 Unspecified dementia, unspecified severity, with behavioral disturbance; I10 Essential (primary) hypertension; Z82.49 Family history of ischemic heart disease and other diseases of the circulatory system
CPT/HCPCS: 36415-UA; 80053-TC; 80061-TC; 80320-TC; 80329-TC; 83036-90; 84443-TC; 85025-TC; 86592-TC; 90899; 93005; G0410; J7051; Z7610